=== PATIENT | male | born 1960 | race African-American/Black ===

== ENCOUNTER → 2017-07-13 08:04 | Outpatient (CLI) | payer MEDICAID ==
[2014-10-02 06:59] VITALS: BMI 26.5
[~2017-07-13 08:04] MED LIST: BAYER CHEWABLE81 MG PO; FERROUS SULFAT325 MG PO; IMDUR60 MG PO; LASIX80 MG PO; NIFEDIPINE ER60 MG PO; PROTONIX40 MG PO; ROCALTROL0.25 MCG PO; TOPROL XL100 MG PO; TUMS500 MG PO
== END | disposition home or self-care (01) ==
LOC: D.RT 08:00
DX: R06.02 Shortness of breath (principal)

== ENCOUNTER 2018-04-28 09:36 | Inpatient (IN) | payer MEDICAID ==
[~2018-04-28] VITALS: Ht 180.3 cm; Wt 83.2 kg
--- NOTE | ~2018-04-28 | HEMODYNAMI ---
PATIENT:PABLO CUNHA MEDICAL RECORD: [id number] : 58 LOCATION:[facility] D.2101 ADMISSION DATE: 04/28/18 Generatedon:04/29/201815:47 Patient name: PABLO CUNHA Patient #: [id number] SSN: : 1960 Date of study: 04/29/2018 Page: Of Hemodynamic Procedure Report Patient Data Patient Demographics Procedure consent was obtained First Name: PABLO Gender: Male Last Name: GUERLINE : 1960 Patient #: [id number] Age: 58 year(s) Race: Black Additional ID: [id number] Contact details [address]: [address] [place] [address] State: [place] City: [place] Zip code: [address] Past Medical History Allergies: No known allergies Admission Admission Data Admission Date: 04/28/2018 Admission Time: 17:34 Room #: .2101 Procedure Procedure Types Cath Procedure Peripheral Cath Diagnostic Procedure Miscellaneous Procedure Description Procedure Date Procedure Date: 04/29/2018 Procedure Start Time: 15:38 Procedure Staff Name Function Varun Geller MD Performing Physician Ac Mcdonald RT Monitor Sophie Bone RN Nurse Renate Souza Scrub Procedure Data Cath Procedure Fluoroscopy Diagnostic fluoroscopy Total fluoroscopy Time: 0.4 time: 0.4 min min Diagnostic fluoroscopy Total fluoroscopy dose: 1 dose: 1 mGy mGy Hemodynamics Rest Pre Cath Intra NCS Post Cath Procedure Log Time Note 15:31:13 Ac Mcdonald RT (R) (CV) sent for patient. Start room use. 15:31:23 Time tracking: Regular hours (M-F 7:00 - 5:00) 15:31:29 Patient received from Med II to IR Alert and oriented. Tansferred to table in Supine position. 15:31:31 Correct patient and procedure confirmed by team. 15:31:33 Signed procedure consent form obtained from patient. 15:31:37 Full Disclosure recording started 15:31:38 - 15:31:40 Pre-procedure instructions explained to patient. 15:31:40 Pre-op teaching completed and patient verbalized understanding. 15:31:43 Patient NPO since Breakfast. 15:31:59 Patient allergic to No known allergies 15:32:09 Is patient on blood thinner?No 15:32:32 Left foot was prepped with chlora-prep and draped in sterile fashion. 15:37:34 Physician arrived 15:37:34 --------ALL STOP TIME OUT------ 15:37:35 Final Timeout: patient, procedure, and site verified with staff and physician. All members of the team are in agreement. 15:37:39 Left foot site verified by team. 15:37:54 Sedation plan: Local Anesthetic Medication:Lidocaine 15:38:04 Procedure started. 15:38:12 Local anesthetic to left foot with Lidocaine 1% by Varun Geller MD.INITIAL ACCESS ONLY 15:38:36 CHIBA 18 X 15 needle opened to sterile field. 15:38:37 SAFE-T BX TRAY opened to sterile field. 15:44:43 Procedure ended.(Physican Out) 15:44:51 Fluoroscopy time 00.40 minutes. 15:45:00 Fluoroscopy dose: 1 mGy 15:45:00 Flurop Dose total: 1 15:45:04 Sharps counted by scrub and verified by R.N. 15:45:36 TEGADERM AND 4X4 APPLIED TO LEFT FOOT FOOT STABLE 15:45:41 Report given to Med II. 15:45:44 Patient transfered to Med II with Bed. Device Usage Item Manufacture Quantity Catalog Hospital Part Current Minimal Lot# / Name Number Charge Number Stock Stock Serial# Code CHIBA Zachary Prell 1 [id number] 18 X 15 needle SAFE-T Zachary Prell 1 [id number] 5 BX TRAY Signature Audit [place] Stage Time Signature Unsigned Intra-Procedure 04/29/2018 Ac 3:46:58 PM Tamara RT (R) (CV) Signatures Monitor : Ac Signature : Radhaield RT Date : Time : [facility] [address] [facility] [place] [address]
[2018-04-28] MEDS ORDERED: PEPCID AC20 MG PO (09:45)
[2018-04-28 10:14] LABS: BASOPHILS 0.4 % (0-2); EOSINOPHILS 5.8 % (0-7); HEMATOCRIT 28.3 % (42.0-54.0); HEMOGLOBIN 8.9 g/dL (13.5-17.5); IMMATURE GRANULOCYTES 0.4 % (0-5); LYMPHOCYTES 22.5 % (15-50); MCH 28.3 pg (26.0-34.0); MCHC 31.4 g/dL (31.0-37.0); MCV 90.1 fL (80.0-100.0); MEAN PLATELET VOLUME 8.8 fL (7.4-10.4); MONOCYTES 9.5 % (2-11); NEUTROPHILS 61.4 % (40-80); RBC 3.14 10x6/uL (4.20-6.10); RDW 13.7 % (11.5-14.5); WBC 4.6 10x3/uL (4.8-10.8)
[2018-04-28 10:25] LABS: PLATELET COUNT 73 10x3/uL (130-400)
[2018-04-28 10:29] LABS: ALBUMIN 2.9 g/dL (3.4-5.0); ANION GAP 15.6 mmol/L (8-16); BILIRUBIN - TOTAL 0.28 mg/dL (0.2-1.3); CALCIUM 8.3 mg/dL (8.5-10.1); CARBON DIOXIDE 28.1 mmol/L (21.0-32.0); CREATININE - SERUM 7.5 mg/dL (0.6-1.3); POTASSIUM - SERUM 4.7 mmol/L (3.5-5.1); PROTEIN - SERUM 7.2 g/dL (6.4-8.2)
[2018-04-28 11:00] LABS: PLATELET ESTIMATE DECREASED
--- NOTE | 2018-04-28 13:10 | NUR ---
PT OBSERVED SITTING IN SEMI-DONALDSON'S WITH NO SIGNS OF DISTRESS. WAKES EASILY TO VERBAL STIMULI, ORIENTED X4. DENIES ANY NEEDS AT THIS TIME. CALL LIGHT IN REACH, WILL CONTINUE TO MONITOR.
--- NOTE | 2018-04-28 13:18 | NUR ---
PT LEAVING THE ED VIA WHEELCHAIR AT THIS TIME FOR ORDERED MRI.
--- NOTE | 2018-04-28 14:00 | NUR ---
PT RETURNED TO THE ED VIA WHEELCHAIR FROM MRI.
[2018-04-28 15:06] VITALS: BP 210/93
[2018-04-28 16:00] VITALS: BP 205/86
[2018-04-28 17:00] VITALS: BP 197/83
[2018-04-28 17:31] VITALS: BP 171/74
--- NOTE | 2018-04-28 17:32 | NUR ---
WILL ADMINISTER ORDERED ZOSYN ONCE ORDERED VANCOMYCIN INFUSION IS COMPLETE.
--- NOTE | 2018-04-28 18:19 | NUR ---
THIS NURSE SPOKE WITH SERGIO IN DIETARY TO REQUEST DINNER TRAY BE SENT TO ROOM 2101 PRIOR TO PT LEAVING THE ED.
[2018-04-28 18:36] VITALS: BP 146/64; BMI 25.8
--- NOTE | 2018-04-28 19:04 | NUR ---
PT TRANFERED FROM THE ER ON A WHEELCHAIR. RECIEVED REPORT FROM MARIA C AT 1800. PT ON ROOM AIR, VSS, AAOX4. BOTH LEGS APPEARS SWOLLEN +3 EDEMA. PT IS A GOOD HISTORIAN. IV ON RIGHT HAND, 22G. SALINE LOCK. UP ADLIB. CAME IN WITH VANC INFUSING. WITH 75MLS LEFT IN BAG. ADMISSION ASSESSMENT COMPLETE. WILL CONTINUE POC. CL IN REACH, BED IN LOW. WILL CONTINUE TO MONITOR
--- NOTE | 2018-04-28 19:20 | NUR ---
INITIAL ROUNDS COMPLETED - PT DENIES ANY PAIN OR DISCOMFORT. R IV IN HAND IS PATENT, CURRENTLY INFUSING VANC. DENIES ANY PAIN OR DISCOMFORT AT THE IV SITE. A/O X4. NO FURTHER NEEDS NOTED AT THIS TIME. WILL CONTINUE TO OBSERVE AND FOLLOW POC. CL IN RECH, SR UP X2, BED IN LOW POSITION.
[2018-04-28 20:00] VITALS: BP 155/58
[2018-04-29] VITALS: BP 169/73
--- NOTE | 2018-04-29 03:57 | NUR ---
PT RESTING IN BED COMFORTABLY. AROUSES EASILY TO NOISE. RR EVEN AND UL, NO S/S OF DISTRESS. NO NEEDS NOTED AT THIS TIME. IV SL'D AND PT ON ROOM AIR. VSS. WILL CONTINUE TO MONITOR NEEDS. CL IN REACH, SR UP X2, BED IN LOWEST POSITION.
[2018-04-29 04:00] VITALS: BP 180/68
--- NOTE | 2018-04-29 07:41 | NUR ---
REPORT RECEIVED. WILL CONTINUE WITH POC. PT CURRENTLY LYING SEMI FOWLERS. CALL LIGHT W/I REACH. RR EVEN AND UNLABORED ON RA. R.HAND PIV IS SALINE LOCKED. PT DENIES ANY NEEDS AT THIS TIME. WILL CTM.
[2018-04-29 09:21] VITALS: BP 183/75
[2018-04-29 10:53] VITALS: BMI 25.9
--- NOTE | 2018-04-29 10:55 | NUR ---
FAMILY AT BS. CALL LIGHT IN REACH. WILL CONT. PLAN OF CARE.
--- NOTE | 2018-04-29 12:17 | NUR ---
AM MEDICATIONS ADMINISTERED. PT SYSTOLIC BP WAS 180, FABIÁN COLBERT ADMINISTERED HYDRALIZINE IV. RECHECKED BP AN HOUR LATER AND SYSTOLIC BP WAS 152. PT DENIES ANY FURTHER NEEDS. WILL CTM.
--- NOTE | 2018-04-29 12:40 | NUR ---
PT TAKEN TO DIALYSIS.
[2018-04-29 12:52] VITALS: BP 181/79
--- NOTE | 2018-04-29 15:54 | MORECARE ---
CASE MANAGEMENT DISCHARGE SUMMARY PATIENT: PABLO CUNHA UNIT: [id number] ADM DATE: 04/28/18 AGE: 58 : 58 SEX: M ROOM/BED: D.2101 AUTHOR: JIMMIE NINO PHYSICIAN: REFERRING PHYSICIAN: SABRA COLLINS MD DATE OF SERVICE: 04/29/18 Discharge Plan Patient Name: PABLO CUNHA Facility: [facility]:[place] : 1960 Planned Disposition: Anticipated Discharge Date: Discharge Date: Expected LOS: Initial Reviewer: [email or web address] Initial Review Date: 04/29/2018 Generated: 04/29/18 4:54 pm Comments DCP- Discharge Planning Updated by [email or web address]: Wellington Kim on 04/29/18 2:[address] Patient Name: PABLO CUNHA Admission Status: ER Accout number: [id number] Admission Date: 04-28-2018 : 1960 Admission Diagnosis:TYPE 2 DIABETES MELLITUS WITH OTHER SPECIFIED COMPLICAT Attending: SABRA COLLINS Current LOS: 1 Anticipated DC Date: Planned Disposition: Primary Insurance: MEDICAID [place] Discharge Planning Comments: CM RECEIVED ORDER FOR HOME HEALTH CARE / MANAGER INTEGRITY TREATMENT. CM ATTEMPTED TO MEET WITH PT FOR INITIAL ASSESSMENT OF DISCHARGE NEEDS. PT WAS NOT IN ROOM AT APPROXIMATELY 1515 AND 1550 HOURS. CM TO ATTEMPT ASSESSMENT OF PT AT A LATER TIME. Vehicle Assembly Inspector: Wellington Kim Patient Name: PABLO CUNHA Page [id number] at 1554 All edits/amendments must be made on the electronic document DICTATION DATE: 04/29/18 1553 INTERSTATE BUS DISPATCHER: SUELLEN 04/29/18 1553 RPT#: [id number] DC DATE: STATUS: ADM IN [facility] [address] [place] [address] END OF REPORT
[2018-04-29 16:14] LABS: ERYTHROCYTE SEDIMENTATION RATE 50 mm/hr (0-20)
--- NOTE | 2018-04-29 18:15 | NUR ---
PT LYING SEMI FOWLERS. CALL LIGHT W/I REACH. L.FOOT ASPIRATION SITE IS C/D/I WITH MINIMAL BLEEDING ON GAUZE. DRESSING IS INTACT. PT DENIES ANY NEEDS OR PAIN AT THIS TIME. WILL PASS REPORT AND CONTINUE WITH POC.
--- NOTE | 2018-04-29 19:39 | NUR ---
REPORT RECEIVED. PT STANDING UP IN ROOM WITH EYES OPEN, RR EVEN AND UNLABORED. PT STATES HE WAS TOLD HE WAS NOT BEING GIVEN ANTIBIOTICS UNTIL WEDNESDAY THEREFORE HE MANUALLY REMOVED HIS IV. PT DENIES FURTHER NEEDS. NO S/S OF DISTRESS. CALL LIGHT IN REACH. WILL CTM.
[2018-04-29 20:00] VITALS: BP 157/74
--- NOTE | 2018-04-29 23:49 | NUR ---
UNABLE TO ADMINISTERED ORDERED HYDRALAZINE IV FOR PT BLOOD PRESSURE OF 157/74. PT HAS REMOVED HIS IV AND REFUSES TO HAVE NEW IV PLACED. PT STATES HE WILL ONLY HAVE A NEW IV IF HE HAS TO TAKE ANITBIOTICS. WILL NOTIFY CHARGE NURSE.
[2018-04-30] VITALS: BP 151/65
--- NOTE | 2018-04-30 01:03 | NUR ---
PT LYING ON RIGHT SIDE IN BED WITH EYES OPEN, RR EVEN AND UNLABORED. BED IN LOW POSITION. NO S/S OF DISTRESS. RR EVEN AND UNLABORED. DENIES FURTHER NEEDS. CALL LIGHT IN REACH. WILL CTM.
--- NOTE | 2018-04-30 03:20 | NUR ---
PT LYING ON RIGHT SIDE IN BED WITH EYES CLOSED, RR EVEN AND UNLABORED. BED IN LOW POSITION. NO S/S OF DISTRESS. CALL LIGHT IN REACH. WILL CTM.
[2018-04-30 04:00] VITALS: BP 139/64
--- NOTE | 2018-04-30 04:08 | NUR ---
RN NOTE: PATIENT RESTING COMFORTABLY IN BED. RESPIRATION ARE EVEN AND UNLABORED. NO S/S OF DISTRESS. CALL LIGHT WITHIN REACH. WILL CPOC.
[2018-04-30 06:29] LABS: CALCIUM 8.4 mg/dL (8.5-10.1); CARBON DIOXIDE 27.9 mmol/L (21.0-32.0); CREATININE - SERUM 8.5 mg/dL (0.6-1.3); PHOSPHOROUS 5.9 mg/dL (2.5-4.9)
[2018-04-30 06:32] LABS: EOSINOPHILS 5.1 % (0-7); HEMATOCRIT 27.3 % (42.0-54.0); HEMOGLOBIN 8.7 g/dL (13.5-17.5); IMMATURE GRANULOCYTES 0.4 % (0-5); LYMPHOCYTES 23.3 % (15-50); MCH 28.2 pg (26.0-34.0); MCHC 31.9 g/dL (31.0-37.0); MCV 88.3 fL (80.0-100.0); MEAN PLATELET VOLUME 9.9 fL (7.4-10.4); MONOCYTES 9.7 % (2-11); NEUTROPHILS 60.5 % (40-80); PLATELET COUNT 86 10x3/uL (130-400); RBC 3.09 10x6/uL (4.20-6.10); RDW 13.6 % (11.5-14.5); WBC 4.9 10x3/uL (4.8-10.8)
[2018-04-30 06:38] LABS: POTASSIUM - SERUM 3.9 mmol/L (3.5-5.1)
--- NOTE | 2018-04-30 07:15 | NUR ---
PT LAYING IN BED, STATES NO CONCERNS. CL IN REACH.
--- NOTE | 2018-04-30 10:26 | NUR ---
RESTS IN BED WITH EYES CLOSED. CALL LIGHT IN REACH. WILL CONT. PLAN OF CARE.
[2018-04-30 10:34] VITALS: BP 161/69
--- NOTE | 2018-04-30 15:50 | NUR ---
PT ESCORTED OUT VIA WHEELCHAIR TO POV. DRIVING
--- NOTE | 2018-04-30 18:16 | MORECARE ---
CASE MANAGEMENT DISCHARGE SUMMARY PATIENT: PABLO CUNHA UNIT: [id number] ADM DATE: 04/28/18 AGE: 58 : 58 SEX: M ROOM/BED: D.2101 AUTHOR: JIMMIE NINO PHYSICIAN: REFERRING PHYSICIAN: SABRA COLLINS MD DATE OF SERVICE: 04/30/18 Discharge Plan Patient Name: PABLO CUNHA [facility] [facility] 1960 Planned Disposition: Home Anticipated Discharge Date: 04/30/18 Discharge Date: 04/30/2018 Expected LOS: 2 Initial Reviewer: [email or web address] Initial Review Date: 04/29/2018 Generated: 04/30/18 7:16 pm Comments DCP- Discharge Planning Updated by [email or web address]: Wellington Kim on 04/29/18 2:[address] Patient Name: PABLO CUNHA Admission Status: ER Accout number: [id number] Admission Date: 04-28-2018 : 1960 Admission Diagnosis:TYPE 2 DIABETES MELLITUS WITH OTHER SPECIFIED COMPLICAT Attending: SABRA COLLINS Current LOS: 1 Anticipated DC Date: Planned Disposition: Primary Insurance: MEDICAID [place] Discharge Planning Comments: CM RECEIVED ORDER FOR HOME HEALTH CARE / HALFWAY TREATMENT. CM ATTEMPTED TO MEET WITH PT FOR INITIAL ASSESSMENT OF DISCHARGE NEEDS. PT WAS NOT IN ROOM AT APPROXIMATELY 1515 AND 1550 HOURS. CM TO ATTEMPT ASSESSMENT OF PT AT A LATER TIME. Automotive Porter: Wellington Kim Last DP export: 04/29/18 2:54 p Patient Name: PABLO CUNHA Page 16011 at 1816 All edits/amendments must be made on the electronic document DICTATION DATE: 04/30/181814 MEDICAL SECRETARY: SUELLEN 04/30/181814 RPT#: [id number] DC DATE:04/30/18 STATUS: DIS IN [facility] [address] [place] [address] END OF REPORT
--- NOTE | 2018-04-30 18:28 | MORECARE ---
CASE MANAGEMENT DISCHARGE SUMMARY PATIENT: PABLO CUNHA UNIT: [id number] ADM DATE: 04/28/18 AGE: 58 : 58 SEX: M ROOM/BED: D.2101 AUTHOR: MICADOC PHYSICIAN: REFERRING PHYSICIAN: SABRA COLLINS MD DATE OF SERVICE: 04/30/18 Discharge Plan Patient Name: PABLO CUNHA Facility: [facility]:[place] : 1960 Planned Disposition: Home Anticipated Discharge Date: 04/30/18 Discharge Date: 04/30/2018 Expected LOS: 2 Initial Reviewer: [email or web address] Initial Review Date: 04/29/2018 Generated: 04/30/18 7:28 pm Comments DCP- Discharge Planning Updated by [email or web address]: Wellington Kim on 04/29/18 2:[address] Patient Name: PABLO CUNHA Admission Status: ER Accout number: [id number] Admission Date: 04-28-2018 : 1960 Admission Diagnosis:TYPE 2 DIABETES MELLITUS WITH OTHER SPECIFIED COMPLICAT Attending: SABRA COLLINS Current LOS: 1 Anticipated DC Date: Planned Disposition: Primary Insurance: MEDICAID [place] Discharge Planning Comments: CM RECEIVED ORDER FOR HOME HEALTH CARE / PENITENTIARY TREATMENT. CM ATTEMPTED TO MEET WITH PT FOR INITIAL ASSESSMENT OF DISCHARGE NEEDS. PT WAS NOT IN ROOM AT APPROXIMATELY 1515 AND 1550 HOURS. CM TO ATTEMPT ASSESSMENT OF PT AT A LATER TIME. Carpenter Prototype: Wellington Kim DCPIA - Discharge Planning Initial Assessment Updated by [email or web address]: Johanna Flores on 04/30/18 6:22 pm * PCP DR COLLINS * Pharmacy [facility] IN [place] * Preadmission Environment Home Alone * ADLs Independent * List name and contact numbers for known caregivers / representatives who currently or will assist patient after discharge: KATYHA CUNHA- - [phone] SAMAN GLEN- [phone] * Verbal permission to speak to the caregivers and representatives has been obtained from the patient. No * Community resources currently utilized None * Please name any agencies selected above. N/A * Additional services required to return to the preadmission environment? No * Can the patient safely return to the preadmission environment? Yes * Has this patient been hospitalized within the prior 30 days at any hospital? No Last DP export: 04/30/18 5:16 p Patient Name: PABLO CUNHA Page [id number] at 1828 All edits/amendments must be made on the electronic document DICTATION DATE: 04/30/181827 FURNITURE BUILDER: SUELLEN 04/30/181827 RPT#: [id number] DC DATE:04/30/18 STATUS: DIS IN [facility] [address] [place] [address] END OF REPORT
--- NOTE | 2018-04-30 18:35 | MORECARE ---
CASE MANAGEMENT DISCHARGE SUMMARY PATIENT: PABLO CUNHA UNIT: [id number] ADM DATE: 04/28/18 AGE: 58 : 58 SEX: M ROOM/BED: D.2101 AUTHOR: MICA,DOC PHYSICIAN: REFERRING PHYSICIAN: SABRA COLLINS MD DATE OF SERVICE: 04/30/18 Discharge Plan Patient Name: PABLO CUNHA Facility: [facility]:[place] : 1960 Planned Disposition: Home Anticipated Discharge Date: 04/30/18 Discharge Date: 04/30/2018 Expected LOS: 2 Initial Reviewer: [email or web address] Initial Review Date: 04/29/2018 Generated: 04/30/18 7:35 pm Comments DCP- Discharge Planning Updated by [email or web address]: Johanna Flores on 04/30/18 5:[address] LATE ENTRY 1100 CM MET WITH THE PATIENT AT THE BEDSIDE. HE DOES NOT HAVE ANY HOME HEALTH SERVICES. HAS HD M/ W / F. HE EITHER TAKES THE SCAT VAN OR DRIVES HIMSELF TO DIALYSIS. PATIENT DOES NOT KNOW ANYTHING ABOUT H/H AND NURSING HOME TREATMENT PLAN. ORDER WAS FROM THE ER. CM SPOKE WITH SERAFIN THE RENAL PROFESSOR OF VOICE. SHE DOES NOT THINK THE PATIENT NEEDS H/H OR NURSING HOME AT THIS TIME. SHE STATES HE IS FAIRLY INDEPENDENT. THE PLAN IS FOR THE PATIENT TO HAVE HD ON WEDNESDAY. HE WILL PROCEED TO GET A BONE BIOPSY SO THAT DEFINITIVE DX CAN BE OBTAINED. HE WILL THEN PROCEED TO F/U WITH DR SANFORD. ONCE THE DIAGNOSIS IS OBTAINED THEN A TREATMENT PLANWILL BE SET UP. ??? IVAB. POSSIBLE CASTING OF THE FOOT WITH NON WEIGHT BEARING STATUS. NO NEED IDENTIFIED AT THIAS TIME. PATIENT' SISTER WILL PROVIDE TRANSPORTATION TO HOME. DR SANFORD SPOKE WITH THE PATIENT AT THE BEDSIDE AND REVIEWED HIS FILMS. EXPLAINED AFTER BX RESULTS OBTAINED AND DIAGNOSIS DETERMINED, HE WILL DISCUSS TREATMENT. DCP- Discharge Planning Updated by [email or web address]: Wellington Kim on 04/29/18 2:[address] Patient Name: PABLO CUNHA Admission Status: ER Accout number: [id number] Admission Date: 04-28-2018 : 1960 Admission Diagnosis:TYPE 2 DIABETES MELLITUS WITH OTHER SPECIFIED COMPLICAT Attending: SABRA COLLINS Current LOS: 1 Anticipated DC Date: Planned Disposition: Primary Insurance: MEDICAID [place] Discharge Planning Comments: CM RECEIVED ORDER FOR HOME HEALTH CARE / NUMERICAL CONTROL DRILL PRESS OPERATOR TREATMENT. CM ATTEMPTED TO MEET WITH PT FOR INITIAL ASSESSMENT OF DISCHARGE NEEDS. PT WAS NOT IN ROOM AT APPROXIMATELY 1515 AND 1550 HOURS. CM TO ATTEMPT ASSESSMENT OF PT AT A LATER TIME. Scalp Treatment Operator: Wellington Kim DCPIA - Discharge Planning Initial Assessment Updated by [email or web address]: Johanna Flores on 04/30/18 6:22 pm * PCP DR COLLINS * Pharmacy [facility] IN [place] * Preadmission Environment Home Alone * ADLs Independent * List name and contact numbers for known caregivers / representatives who currently or will assist patient after discharge: KATHYA CUNHAVu - [phone] SAMANVIKA CARROLL- [phone] * Verbal permission to speak to the caregivers and representatives has been obtained from the patient. No * Community resources currently utilized None * Please name any agencies selected above. N/A * Additional services required to return to the preadmission environment? No * Can the patient safely return to the preadmission environment? Yes * Has this patient been hospitalized within the prior 30 days at any hospital? No Last DP export: 04/30/18 5:28 p Patient Name: PABLO CUNHA Page 50409 at 1835 All edits/amendments must be made on the electronic document DICTATION DATE: 04/30/181833 ACCOUNTING PROFESSOR: SUELLEN 04/30/181833 RPT#: [id number] DC DATE:04/30/18 STATUS: DIS IN [facility] [address] [place] [address] END OF REPORT
--- NOTE | 2018-05-02 07:50 | MORECARE ---
CASE MANAGEMENT DISCHARGE SUMMARY PATIENT: PABLO CUNHA UNIT: [id number] ADM DATE: 04/28/18 AGE: 58 : 58 SEX: M ROOM/BED: D.2101 AUTHOR: MICA,DOC PHYSICIAN: REFERRING PHYSICIAN: SABRA COLLINS MD DATE OF SERVICE: 05/02/18 Discharge Plan Patient Name: PABLO CUNHA Facility: [facility]:[place] : 1960 Planned Disposition: Home Anticipated Discharge Date: 04/30/18 Discharge Date: 04/30/2018 Expected LOS: 2 Initial Reviewer: [email or web address] Initial Review Date: 04/29/2018 Generated: 05/02/18 8:50 am Comments DCP- Discharge Planning Updated by [email or web address]: Johanna Flores on 04/30/18 5:[address] LATE ENTRY 1100 CM MET WITH THE PATIENT AT THE BEDSIDE. HE DOES NOT HAVE ANY HOME HEALTH SERVICES. HAS HD M/ W / F. HE EITHER TAKES THE SCAT VAN OR DRIVES HIMSELF TO DIALYSIS. PATIENT DOES NOT KNOW ANYTHING ABOUT H/H AND USP TREATMENT PLAN. ORDER WAS FROM THE ER. CM SPOKE WITH SERAFIN THE RENAL METER AND SERVICE LINE INSPECTOR. SHE DOES NOT THINK THE PATIENT NEEDS H/H OR USP AT THIS TIME. SHE STATES HE IS FAIRLY INDEPENDENT. THE PLAN IS FOR THE PATIENT TO HAVE HD ON WEDNESDAY. HE WILL PROCEED TO GET A BONE BIOPSY SO THAT DEFINITIVE DX CAN BE OBTAINED. HE WILL THEN PROCEED TO F/U WITH DR SANFORD. ONCE THE DIAGNOSIS IS OBTAINED THEN A TREATMENT PLANWILL BE SET UP. ??? IVAB. POSSIBLE CASTING OF THE FOOT WITH NON WEIGHT BEARING STATUS. NO NEED IDENTIFIED AT THIAS TIME. PATIENT' SISTER WILL PROVIDE TRANSPORTATION TO HOME. DR SANFORD SPOKE WITH THE PATIENT AT THE BEDSIDE AND REVIEWED HIS FILMS. EXPLAINED AFTER BX RESULTS OBTAINED AND DIAGNOSIS DETERMINED, HE WILL DISCUSS TREATMENT. DCP- Discharge Planning Updated by [email or web address]: Wellington Kim on 04/29/18 2:[address] Patient Name: PABLO CUNHA Admission Status: ER Accout number: [id number] Admission Date: 04-28-2018 : 1960 Admission Diagnosis:TYPE 2 DIABETES MELLITUS WITH OTHER SPECIFIED COMPLICAT Attending: SABRA COLLINS Current LOS: 1 Anticipated DC Date: Planned Disposition: Primary Insurance: MEDICAID [place] Discharge Planning Comments: CM RECEIVED ORDER FOR HOME HEALTH CARE / FIELD ARTILLERY OFFICER TREATMENT. CM ATTEMPTED TO MEET WITH PT FOR INITIAL ASSESSMENT OF DISCHARGE NEEDS. PT WAS NOT IN ROOM AT APPROXIMATELY 1515 AND 1550 HOURS. CM TO ATTEMPT ASSESSMENT OF PT AT A LATER TIME. Software Qa System Specialist: Wellington Kim DCPIA - Discharge Planning Initial Assessment Updated by [email or web address]: Johanna Flores on 04/30/18 6:22 pm * PCP DR COLLINS * Pharmacy [facility] IN [place] * Preadmission Environment Home Alone * ADLs Independent * List name and contact numbers for known caregivers / representatives who currently or will assist patient after discharge: KATHYA CUNHAVu - [phone] SAMANVIKA CARROLL- [phone] * Verbal permission to speak to the caregivers and representatives has been obtained from the patient. No * Community resources currently utilized None * Please name any agencies selected above. N/A * Additional services required to return to the preadmission environment? No * Can the patient safely return to the preadmission environment? Yes * Has this patient been hospitalized within the prior 30 days at any hospital? No Last DP export: 04/30/18 5:35 p Patient Name: PABLO CUNHA Page 10202 at 0750 All edits/amendments must be made on the electronic document DICTATION DATE: 05/02/18749 PHYSICIAN INTERNIST: SUELLEN 05/02/18 0750 RPT#: [id number] DC DATE:04/30/18 STATUS: DIS IN [facility] [address] [place] [address] END OF REPORT
[2018-05-06 18:59] VITALS: Ht 180.3 cm; Wt 83.2 kg
== END 2018-04-30 15:50 | disposition home or self-care (01) | DRG 638 ==
LOC: D.ER 09:36 → D.M2 17:34 → D.EDHOLD 17:34 → D.M2 17:43
PROVIDERS: Emergency Medicine; Internal Medicine Nephrology; Orthopaedic Surgery; Specialist; ADMIT Legal Medicine
PROC: 0S9 Lower Joints, Drainage (ICD-10-PCS; principal; 2018-04-29 15:30)
DX: E11.69 Type 2 diabetes mellitus with other specified complication (principal); M86.9 Osteomyelitis, unspecified; C85.90 Non-Hodgkin lymphoma, unspecified, unspecified site; I12.0 Hypertensive chronic kidney disease with stage 5 chronic kidney disease or end stage renal disease; E11.22 Type 2 diabetes mellitus with diabetic chronic kidney disease; N18.6 End stage renal disease; Z99.2 Dependence on renal dialysis; E11.610 Type 2 diabetes mellitus with diabetic neuropathic arthropathy; D63.1 Anemia in chronic kidney disease; E83.39 Other disorders of phosphorus metabolism

== ENCOUNTER → 2018-09-30 15:34 | Outpatient (CLI) | payer MEDICAID ==
[2018-05-06 18:59] VITALS: BMI 25.9
[~2018-09-30 15:34] MED LIST changes: +PEPCID AC20 MG PO
== END | disposition home or self-care (01) ==
LOC: D.US 15:34
PROVIDERS: ATTEND Podiatrist Foot & Ankle Surgery
DX: I82.401 Acute embolism and thrombosis of unspecified deep veins of right lower extremity (principal)

== ENCOUNTER 2019-03-06 11:29 | Emergency (ER) | payer MEDICAID ==
[~2019-03-06] VITALS: Ht 180.3 cm; Wt 84.1 kg
[2019-03-06 11:34] VITALS: Ht 180.3 cm; Wt 84.1 kg
[2019-03-06 12:02] LABS: BASOPHILS 0.5 % (0-2); EOSINOPHILS 2.1 % (0-7); HEMATOCRIT 32.3 % (42.0-54.0); IMMATURE GRANULOCYTES 0.4 % (0-5); LYMPHOCYTES 15.9 % (15-50); MCH 28.3 pg (26.0-34.0); MCV 91.5 fL (80.0-100.0); MEAN PLATELET VOLUME 9.1 fL (7.4-10.4); MONOCYTES 9.9 % (2-11); NEUTROPHILS 71.2 % (40-80); RBC 3.53 10x6/uL (4.20-6.10); RDW 15.3 % (11.5-14.5); WBC 5.7 10x3/uL (4.8-10.8)
[2019-03-06 12:03] LABS: PLATELET COUNT 119 10x3/uL (130-400)
[2019-03-06 12:12] LABS: ANION GAP 15.3 mmol/L (8-16); CALCIUM 8.3 mg/dL (8.5-10.1); CARBON DIOXIDE 26.7 mmol/L (21.0-32.0); CREATININE - SERUM 6.3 mg/dL (0.6-1.3)
[2019-03-06 12:18] LABS: BILIRUBIN - TOTAL 0.48 mg/dL (0.2-1.3); PROTEIN - SERUM 8.1 g/dL (6.4-8.2)
[2019-03-06] MEDS ORDERED: ZOFRAN8 MG PO (16:34)
[2019-03-06 19:05] VITALS: BP 195/91
== END 2019-03-06 19:06 | disposition home or self-care (01) ==
LOC: D.ER 11:29
PROVIDERS: Family Medicine
DX: R10.32 Left lower quadrant pain (principal); R59.1 Generalized enlarged lymph nodes; E11.22 Type 2 diabetes mellitus with diabetic chronic kidney disease; I12.0 Hypertensive chronic kidney disease with stage 5 chronic kidney disease or end stage renal disease; N18.6 End stage renal disease; Z99.2 Dependence on renal dialysis; C85.90 Non-Hodgkin lymphoma, unspecified, unspecified site

== ENCOUNTER 2019-04-10 05:11 | Emergency (ER) | payer MEDICAID ==
[~2019-04-10] VITALS: Ht 180.3 cm; Wt 83.9 kg
[~2019-04-10 05:11] MED LIST changes: +ZOFRAN8 MG PO
[2019-04-10 05:16] VITALS: Ht 180.3 cm; Wt 83.9 kg
[2019-04-10 06:12] LABS: BASOPHILS 0.4 % (0-2); EOSINOPHILS 6.2 % (0-7); HEMATOCRIT 30.4 % (42.0-54.0); HEMOGLOBIN 9.7 g/dL (13.5-17.5); IMMATURE GRANULOCYTES 0.3 % (0-5); LYMPHOCYTES 17.2 % (15-50); MCHC 31.9 g/dL (31.0-37.0); MCV 87.6 fL (80.0-100.0); MEAN PLATELET VOLUME 9.2 fL (7.4-10.4); MONOCYTES 9.4 % (2-11); NEUTROPHILS 66.5 % (40-80); PLATELET COUNT 105 10x3/uL (130-400); RBC 3.47 10x6/uL (4.20-6.10); RDW 14.6 % (11.5-14.5); WBC 7.6 10x3/uL (4.8-10.8)
[2019-04-10 06:16] LABS: ANION GAP 19.1 mmol/L (8-16); CALCIUM 8.2 mg/dL (8.5-10.1); CARBON DIOXIDE 24.7 mmol/L (21.0-32.0); CREATININE - SERUM 11.5 mg/dL (0.6-1.3); POTASSIUM - SERUM 4.8 mmol/L (3.5-5.1)
[2019-04-10 06:22] LABS: ALBUMIN 2.8 g/dL (3.4-5.0); BILIRUBIN - TOTAL 0.29 mg/dL (0.2-1.3); PROTEIN - SERUM 7.3 g/dL (6.4-8.2)
[2019-04-10] MEDS ORDERED: PERCOCET 5-3251 TAB PO (09:08)
[2019-04-10] MEDS ORDERED: PROTONIX40 MG PO (09:08)
[2019-04-10 09:26] VITALS: BP 131/56
== END 2019-04-10 09:20 | disposition home or self-care (01) ==
LOC: D.ER 05:11
PROVIDERS: Family Medicine
DX: I12.0 Hypertensive chronic kidney disease with stage 5 chronic kidney disease or end stage renal disease (principal); N18.6 End stage renal disease; Z99.2 Dependence on renal dialysis; C85.83 Other specified types of non-Hodgkin lymphoma, intra-abdominal lymph nodes

== ENCOUNTER 2019-05-18 15:55 | Inpatient (IN) | payer MEDICAID ==
[~2019-05-18] VITALS: Ht 180.3 cm; Wt 64.6 kg
[~2019-05-18 15:55] MED LIST changes: +PERCOCET 5-3251 TAB PO
[2019-05-18 17:08] LABS: HEMOGLOBIN 8.4 g/dL (13.5-17.5); MCH 27.3 pg (26.0-34.0); MCHC 31.1 g/dL (31.0-37.0); MCV 87.7 fL (80.0-100.0); MEAN PLATELET VOLUME 10.2 fL (7.4-10.4); PLATELET COUNT 131 10x3/uL (130-400); RBC 3.08 10x6/uL (4.20-6.10); RDW 15.9 % (11.5-14.5); WBC 21.9 10x3/uL (4.8-10.8)
[2019-05-18 17:27] LABS: EOSINOPHILS 1 % (0-7); LYMPHOCYTES 7 % (15-50); MONOCYTES 7 % (2-11); NEUTROPHILS 85 % (40-80)
[2019-05-18 17:28] LABS: PLATELET ESTIMATE NORMAL; TARGET CELLS OCC
[2019-05-18 17:29] LABS: POIKILOCYTOSIS OCC
[2019-05-18 17:36] LABS: CALC OSMOLALITY 271 mosm/kg (275-300); CALCIUM 8.1 mg/dL (8.5-10.1); CARBON DIOXIDE 20.4 mmol/L (21.0-32.0); CHLORIDE - SERUM 88 mmol/L (98-107); GLUCOSE 95 mg/dL (74-106); POTASSIUM - SERUM 5.8 mmol/L (3.5-5.1); SODIUM 128 mmol/L (136-145); UREA NITROGEN 55 mg/dL (7-18); eGFR NON AFRICAN AMERICAN 7 mL/min (90-120)
[2019-05-18 17:43] LABS: APTT 37.9 SECONDS (22.8-39.4); INR 1.57 (0.85-1.17); PROTIME 18.6 SECONDS (11.6-15.0)
[2019-05-18 17:53] LABS: ALBUMIN 1.9 g/dL (3.4-5.0); ALKALINE PHOSPHATASE 215 U/L (30-120); ALT (SGPT) 20 U/L (10-68); BILIRUBIN - TOTAL 0.77 mg/dL (0.2-1.3); CKMB 0.4 U/L (0.0-3.6); CREATINE KINASE 69 UL (21-232); PROTEIN - SERUM 6.8 g/dL (6.4-8.2)
[2019-05-18 17:59] VITALS: BP 121/54
[2019-05-18 18:03] LABS: TROPONIN-I 0.175 ng/mL (0.000-0.060)
--- NOTE | 2019-05-18 18:15 | MORECARE ---
CASE MANAGEMENT DISCHARGE SUMMARY PATIENT: PABLO CUNHA UNIT: [id number] ADM DATE: 05/18/19 AGE: 59 : 58 SEX: M ROOM/BED: D.2236 AUTHOR: JIMMIE NINO PHYSICIAN: REFERRING PHYSICIAN: SABRA COLLINS MD DATE OF SERVICE: 05/18/19 Discharge Plan Patient Name: PABLO CUNHA Facility: [facility]:[place] : 1960 Planned Disposition: Home Anticipated Discharge Date: 05/22/19 Discharge Date: Expected LOS: 4 Initial Reviewer: [email or web address] Initial Review Date: 05/18/2019 Generated: 05/18/19 7:14 pm Patient Name: PABLO CUNHA Page 47955 at 1815 All edits/amendments must be made on the electronic document DICTATION DATE: 05/18/191813 GEM SETTER: SUELLEN 05/18/191813 RPT#: [id number] DC DATE: STATUS: ADM IN [facility] [address] [place] [address] END OF REPORT
--- NOTE | 2019-05-18 18:23 | MORECARE ---
CASE MANAGEMENT DISCHARGE SUMMARY PATIENT: PABLO CUNHA UNIT: [id number] ADM DATE: 05/18/19 AGE: 59 : 58 SEX: M ROOM/BED: D.2236 AUTHOR: MICA,DOC PHYSICIAN: REFERRING PHYSICIAN: SABRA COLLINS MD DATE OF SERVICE: 05/18/19 Discharge Plan Patient Name: PABLO CUNHA Facility: [facility]:[place] : 1960 Planned Disposition: Home Anticipated Discharge Date: 05/22/19 Discharge Date: Expected LOS: 4 Initial Reviewer: [email or web address] Initial Review Date: 05/18/2019 Generated: 05/18/19 7:23 pm DCP- Discharge Planning Updated by [email or web address]: Telma Ramsey on 05/18/19 5:[address] DC PLAN: Return home alone. ANTICIPATED DC NEEDS: denied known dc needs at time of assessment in the ER. CM met with patient to complete initial dc planning assessment. CM educated patient on the CM role and verbal consent given by patient to complete assessment. CM verified patient's address, phone number, and emergency contact phone numbers. Patient lives at home alone and reports he is independent in his care. He goes to - via scat transport to and from. He reports he also goes to the wound clinic for his R ankle. He reports he is currently taking po vancomycin and IV Vanco at . At discharge patient plans to return home and feels this is a safe discharge. CM discussed availability of home health, rehab services, and medical equipment. Patient denied known discharge needs at this time. Transportation provider at discharge will be an ambulance. CM will continue to follow and will assist as needed with dc plans/needs. Telma Ramsey RN, [facility] DCPIA - Discharge Planning Initial Assessment Updated by [email or web address]: Telma Ramsey on 05/18/19 6:16 pm * Is the patient Alert and Oriented? Yes * PCP Dr. Collins * Pharmacy [facility] in [place] * Preadmission Environment Home Alone * ADLs Independent * Equipment Bedside Commode Cane Rolling Walker Wheelchair * List name and contact numbers for known caregivers / representatives who currently or will assist patient after discharge: Roselia Estes [facility] [phone] * Verbal permission to speak to the caregivers and representatives has been obtained from the patient. Yes * Community resources currently utilized None * Please name any agencies selected above. Hemodialysis at [facility] transportation * Additional services required to return to the preadmission environment? No * Can the patient safely return to the preadmission environment? Yes * Has this patient been hospitalized within the prior 30 days at any hospital? Yes Last DP export: 05/18/19 5:15 pm Patient Name: PABLO CUNHA Page [id number] at 1823 All edits/amendments must be made on the electronic document DICTATION DATE: 05/18/191822 ROOFING LAYER: SUELLEN 05/18/191822 RPT#: [id number] DC DATE: STATUS: ADM IN [facility] [address] [place] [address] END OF REPORT
--- NOTE | 2019-05-18 18:45 | NUR ---
DR HERNANDEZ AT BS
[2019-05-18 19:17] VITALS: BP 126/54
--- NOTE | 2019-05-18 19:17 | NUR ---
REPORT CALLED TO FILEMON BENNETT
--- NOTE | 2019-05-18 19:45 | NUR ---
PT'S IV ANTIBIOTIC ZOSYN FINISHED AT THIS TIME.
--- NOTE | 2019-05-18 19:47 | NUR ---
PT TRANSPORTED TO DIALYSIS, FILEMON BENNETT INFORMED.
[2019-05-19] VITALS (7 sets, daily range): BP systolic 98–138; BP diastolic 30–65; BMI 22.7
--- NOTE | 2019-05-19 00:14 | NUR ---
TRANSPORTED ONTO FLOOR FROM DIALYSIS. TOLERATED WELL. IV TO THE RT UPPER ARM WITH NO REDNESS OR SWELLING NOTED. LETHARGIC BUT RESPONDS TO VOICE. ONCE AWAKE IS CONVERSANT. PLACED ON NC @6L AND DRESSING NOTED TO THE RT FOOT. FISTULA NOTED TO THE LEFT ARM. DRE ALARM ON. WILL CONTINUE TO MONITOR.
--- NOTE | 2019-05-19 08:08 | NUR ---
The patient is sleepy, he is easy to arouse. He has left leg and foot edema, dressing to back of leg for blisters. Right foot dressing r/t post surgery. bilingual instructor put him on O2 at 6 per N/C.
[2019-05-19 10:44] LABS: ALBUMIN 1.7 g/dL (3.4-5.0); BILIRUBIN - TOTAL 0.68 mg/dL (0.2-1.3); CREATININE - SERUM 6.8 mg/dL (0.6-1.3)
[2019-05-19 10:45] LABS: ANION GAP 18.7 mmol/L (8-16); BASOPHILS 0.2 % (0-2); CARBON DIOXIDE 26.2 mmol/L (21.0-32.0); EOSINOPHILS 0.4 % (0-7); HEMATOCRIT 27.3 % (42.0-54.0); HEMOGLOBIN 8.4 g/dL (13.5-17.5); IMMATURE GRANULOCYTES 2.1 % (0-5); LYMPHOCYTES 5.5 % (15-50); MCHC 30.8 g/dL (31.0-37.0); MCV 87.8 fL (80.0-100.0); MEAN PLATELET VOLUME 10.5 fL (7.4-10.4); MONOCYTES 4.6 % (2-11); NEUTROPHILS 87.2 % (40-80); PLATELET COUNT 139 10x3/uL (130-400); POTASSIUM - SERUM 4.9 mmol/L (3.5-5.1); RBC 3.11 10x6/uL (4.20-6.10); RDW 16.2 % (11.5-14.5); WBC 22.3 10x3/uL (4.8-10.8)
--- NOTE | 2019-05-19 11:00 | NUR ---
Asked the patient if he would like a pain pill as he is grimacing when his legs move. He denies the need at this time.
--- NOTE | 2019-05-19 13:09 | NUR ---
The patient is not using his oxygen and he then gets confused. He says he is hurting, but he doesn't know what to rate it. Provided percocet, see SWATI.
--- NOTE | 2019-05-19 16:24 | NUR ---
PT SAY HE DONT SMOKE
--- NOTE | 2019-05-19 19:10 | NUR ---
BEDSIDE REPORT RECEIVED FROM DAY SHIFT, PT CARE ASSUMED. INTRODUCED SELF AND WROTE NAME ON BOARD. PT SITTING UP IN BED WATCHING TV, AAOX4. REPOSITIONED FOR COMFORT. DENIES ANY OTHER NEEDS AT THIS TIME. BED IN LOWEST POSITION, SR X2, BED ALARM ON AND FUNCTIONING, CALL LIGHT WITHIN REACH. WILL CONTINUE TO MONITOR.
--- NOTE | 2019-05-19 20:15 | NUR ---
PT C/O DRESSING TO LEFT LOWER LEG "CUTTING OFF CIRCULATION". ASSESSED DRESSING, ABLE TO SLIDE TWO FINGERS UNDERNEATH ELISABETH BANDAGE, EXPLAINED TO PT PURPOSE OF ELISABETH BANDAGE WAS TO HELP WITH THE SWELLING, THE NEXT DRESSING CHANGE WAS SCHEDULED IN THE AM, KERLIX AND ELISABETH BANDAGE C/D/I. PT VERBALIZED UNDERSTANDING. BED IN LOWEST POSITION, SR X2, CALL LIGHT WITHIN REACH. WILL CONTINUE TO MONITOR.
--- NOTE | 2019-05-19 22:00 | NUR ---
PT CALLED NURSES STATION FROM ROOM, STATING "THE RUBBER ON MY LEG IS TOO TIGHT. I DON'T WANT TO PRESS CHARGES, BUT I WILL." ENTERED ROOM TO FIND PT HAD ATTEMPTED TO REMOVE BANDAGE AND DRESSING, CAUSING THE BANDAGE TO BECOME TIGHTER THAN WHEN IT WAS ASSESSED EARLIER. NASAL CANNULA WAS LYING IN THE BED, REAPPLIED AND EXPLAINED IMPORTANCE OF WEARING IT CORRECTLY. PIV FOUND ON BEDSIDE TABLE, CATHETER TIP INTACT, NO S/S OF BLEEDING AT SITE. PT STATES, "I TOOK IT OUT FOR ATTENTION." EXPLAINED THE NEED FOR IV ACCESS AND IV MEDS ORDERED, VERBALIZED UNDERSTANDING, REFUSING ATTEMPT TO RESITE AT THIS TIME. ASSESSED LOC, AAOX3, DISORIENTED TO SITUATION. STATES HE IS IN THE HOSPITAL BECAUSE "PEOPLE THINK I'M CRAZY." REORIENTED, EXPLAINED THE ROLE OF OXYGEN IN THE BRAIN AND WHAT HAPPENS WHEN ENOUGH OXYGEN ISN'T GETTING TO THE BRAIN. VERBALIZED UNDERSTANDING. DRESSING CHANGE TO LEFT LOWER EXTREMITY, PER ORDER. NIGHT TIME MEDS AND PRN PERCOCET ADMINISTED, PER ORDER. REPORTS LOWER LEFT LEG PAIN OF 8, ON A SCALE OF 0-10. DENIES ANY OTHER NEEDS AT THIS TIME. BED IN LOWEST POSITION, SR X2, BED ALARM ON AND FUNCTIONING, CALL LIGHT WITHIN REACH. WILL CONTINUE TO MONITOR.
--- NOTE | 2019-05-20 03:15 | NUR ---
ATTEMPTED TO RESITE PIV X4 UNSUCCESSFULLY, PT TOLERATED WELL, NO S/S OF BLEEDING. BED ALARM ON AND FUNCTIONING PROPERLY, BED IN LOWEST POSITION, SR X2, CALL LIGHT WITHIN REACH. WILL CONTINUE TO MONITOR.
[2019-05-20 08:38] VITALS: BP 126/51
[2019-05-20 08:56] LABS: ALBUMIN 1.8 g/dL (3.4-5.0); ANION GAP 21.1 mmol/L (8-16); BILIRUBIN - TOTAL 0.6 mg/dL (0.2-1.3); CALCIUM 7.6 mg/dL (8.5-10.1); CREATININE - SERUM 7.7 mg/dL (0.6-1.3); MAGNESIUM - SERUM 2.4 mg/dL (1.8-2.4); PHOSPHOROUS 7.5 mg/dL (2.5-4.9); POTASSIUM - SERUM 5.1 mmol/L (3.5-5.1); PROTEIN - SERUM 6.3 g/dL (6.4-8.2)
[2019-05-20 09:09] LABS: BASOPHILS 0.2 % (0-2); EOSINOPHILS 0.5 % (0-7); HEMATOCRIT 27.4 % (42.0-54.0); HEMOGLOBIN 8.3 g/dL (13.5-17.5); IMMATURE GRANULOCYTES 1.7 % (0-5); LYMPHOCYTES 4.3 % (15-50); MCH 26.7 pg (26.0-34.0); MCHC 30.3 g/dL (31.0-37.0); MCV 88.1 fL (80.0-100.0); MONOCYTES 4.6 % (2-11); NEUTROPHILS 88.7 % (40-80); PLATELET COUNT 117 10x3/uL (130-400); RBC 3.11 10x6/uL (4.20-6.10); RDW 16.3 % (11.5-14.5); WBC 19.7 10x3/uL (4.8-10.8)
--- NOTE | 2019-05-20 10:13 | NUR ---
RESTING IN BED, NO DISTRESS NOTED, AWAITING NEW IV, CONT TO MONITOR CONFUSION, DRESSINGS TO LOWER LEGS IN PLACE
--- NOTE | 2019-05-20 13:23 | NUR ---
1030 TAKEN TO DIALYSIS PER BED
[2019-05-20 13:36] VITALS: BP 145/56
[2019-05-20 18:27] VITALS: BP 151/55
[2019-05-20 19:30] VITALS: BP 124/52
--- NOTE | 2019-05-20 20:13 | NUR ---
DRESSING CHANGED TO BOTH LOWER LEGS, SOHAM WELL
[2019-05-21 00:46] VITALS: BP 109/51
[2019-05-21 04:30] VITALS: BP 118/56
[2019-05-21 07:35] LABS: BASOPHILS 0.1 % (0-2); EOSINOPHILS 0.5 % (0-7); HEMATOCRIT 26.9 % (42.0-54.0); HEMOGLOBIN 8.2 g/dL (13.5-17.5); IMMATURE GRANULOCYTES 2.1 % (0-5); MCH 26.8 pg (26.0-34.0); MCHC 30.5 g/dL (31.0-37.0); MCV 87.9 fL (80.0-100.0); MEAN PLATELET VOLUME 10.1 fL (7.4-10.4); MONOCYTES 6.2 % (2-11); NEUTROPHILS 87.1 % (40-80); RBC 3.06 10x6/uL (4.20-6.10); RDW 16.6 % (11.5-14.5); WBC 19.9 10x3/uL (4.8-10.8)
[2019-05-21 07:36] LABS: PLATELET COUNT 93 10x3/uL (130-400)
--- NOTE | 2019-05-21 08:10 | NUR ---
RESTING IN BED, FAMILY IN ROOM, NO DISTRESS NOTED, CONT TO MONITOR PAIN, DRESSINGS TO LOWER LEGS DRY AND INTACT, SL TO RIGHT SHOULDER
[2019-05-21 08:28] LABS: PLATELET ESTIMATE DECREASED
[2019-05-21 09:04] LABS: ALBUMIN 1.9 g/dL (3.4-5.0); BILIRUBIN - TOTAL 0.71 mg/dL (0.2-1.3); CALCIUM 7.5 mg/dL (8.5-10.1); CARBON DIOXIDE 27.3 mmol/L (21.0-32.0); CREATININE - SERUM 5.6 mg/dL (0.6-1.3); PHOSPHOROUS 5.7 mg/dL (2.5-4.9); POTASSIUM - SERUM 4.3 mmol/L (3.5-5.1); PROTEIN - SERUM 6.2 g/dL (6.4-8.2)
[2019-05-21 09:11] VITALS: BP 95/50
[2019-05-21 12:23] VITALS: Ht 180.3 cm; Wt 64.6 kg
[2019-05-21 13:29] VITALS: BP 103/41
--- NOTE | 2019-05-21 15:08 | MORECARE ---
CASE MANAGEMENT DISCHARGE SUMMARY PATIENT: PABLO CUNHA UNIT: [id number] ADM DATE: 05/18/19 AGE: 59 : 58 SEX: M ROOM/BED: D.2236 AUTHOR: MICA,DOC PHYSICIAN: REFERRING PHYSICIAN: SABRA COLLINS MD DATE OF SERVICE: 05/21/19 Discharge Plan Patient Name: PABLO CUNHA Facility: [facility]:[place] : 1960 Planned Disposition: Home Anticipated Discharge Date: 05/22/19 Discharge Date: Expected LOS: 4 Initial Reviewer: [email or web address] Initial Review Date: 05/18/2019 Generated: 05/21/19 4:07 pm Comments DCP- Discharge Planning Updated by [email or web address]: Johannadottie Flores on 05/21/19 2:[address] CM SPENT 40 MINUTES TALKING WITH 2 OF THE PATIENT'S SISTERS AND ONE BROTHER. THEY ARE CONCERNED ABOUT HIS DECISION MAKING ABILITY. HE DOES NOT WISH TO HAVE AN AMPUTATION. HE HAS SOME DEGREE OF [id number]. THEY HAD QUESTIONS ABOUT POA, TRANSFERING HIM TO [place], [place], MEDICAID COVERAGE, HIS TREAMENT PLAN. THEY HAVE SPOKEN TO EAN GRANADOS, DR LOPEZ, DR HERNANDEZ AND THE ORTHO MD. THEY ARE EXTREMELY CONCERNED. THEY HAVE SPOKEN W/ HIS CHILDREN WHO REPORTEDLY DO NOT UNDERSTAND HOW SICK HE IS. HIS CHILDREN LIVE OUT OF STATE. I PROVIDED TWO CONTACT NUMBERS FOR MEDICAID FOR THEIR QUESTIONS. I REVIEWED THE PLAN FOR THE NEXT 24 HRS. I SUGGESTED THEY CALL HIS HD UNIT TO SEE IF HE HAS A POA ON RECORD. HIS SISTER, ROSELIA ESTES, IS THE PRIMARY GIFT OFFICER AND WHO THE PATIENT LISTED FOR EMERGENCY CONTACT. SHE WAS THE PRIMARY PERSON ASKING QUESTIONS AND TAKING NOTES. THEY WISH TO SPEAK WITH DR COLLINS. ROSELIA ESTES- . DCP- Discharge Planning Updated by [id number]: Telma Ramsey on 05/18/19 5:[address] DC PLAN: Return home alone. ANTICIPATED DC NEEDS: denied known dc needs at time of assessment in the ER. CM met with patient to complete initial dc planning assessment. CM educated patient on the CM role and verbal consent given by patient to complete assessment. CM verified patient's address, phone number, and emergency contact phone numbers. Patient lives at home alone and reports he is independent in his care. He goes to - via scat transport to and from. He reports he also goes to the wound clinic for his R ankle. He reports he is currently taking po vancomycin and IV Vanco at HD. At discharge patient plans to return home and feels this is a safe discharge. CM discussed availability of home health, rehab services, and medical equipment. Patient denied known discharge needs at this time. Transportation provider at discharge will be an ambulance. CM will continue to follow and will assist as needed with dc plans/needs. Telma Ramsey RN, [facility] DCPIA - Discharge Planning Initial Assessment Updated by [id number]: Telma Ramsey on 05/18/19 6:16 pm * Is the patient Alert and Oriented? Yes * PCP Dr. Collins * Pharmacy [facility] in [place] * Preadmission Environment Home Alone * ADLs Independent * Equipment Bedside Commode Cane Rolling Walker Wheelchair * List name and contact numbers for known caregivers / representatives who currently or will assist patient after discharge: Roselia Estes [facility] [phone] * Verbal permission to speak to the caregivers and representatives has been obtained from the patient. Yes * Community resources currently utilized None * Please name any agencies selected above. Hemodialysis at [facility] transportation * Additional services required to return to the preadmission environment? No * Can the patient safely return to the preadmission environment? Yes * Has this patient been hospitalized within the prior 30 days at any hospital? Yes Last DP export: 05/18/19 5:23 pm Patient Name: PABLO CUNHA Page [id number] at 1508 All edits/amendments must be made on the electronic document DICTATION DATE: 05/21/19 1507 LAY OUT MACHINE OPERATOR: SUELLEN 05/21/19 1507 RPT#: [id number] DC DATE: STATUS: ADM IN [facility] [address] [place] [address] END OF REPORT
[2019-05-21 17:10] VITALS: BP 141/48
--- NOTE | 2019-05-21 17:35 | NUR ---
DRESSING CHANGED TO BILATERAL LEGS, WOUNDS MEASURED, RIGHT LEG WITH LOOKS LIKE 2 RUPTURED BLISTERS, MEASURE 6X8 AND 2X4, TREATED WITH BETADINE AND WRAPPED, LEFT LEG WITH INNER ASPECT SURGICAL WOUND MEASURES 17CM WITH IN THAT SUTURE LINE THERE IS A 1X2 CM AREA WHERE SUTURES HAVE PULLED LOOSE, OUTER ASPECT OF THIS ANKLE IS AN 11 CM SURGICAL WOUND WITH A 1X3 CM AREA WHERE SUTURES HAVE PULLED LOOSE, ALSO A 2X5 CM WOUND THAT HAS PACKING IN PLACE, THESE AREAS WERE ALL CLEANED WITH NS AND REDRESSED WITH WET TO DRY DRESSING AND WRAPPED WITH SPLINT IN PLACE, SOHAM WELL
[2019-05-21 19:30] VITALS: BP 107/50
--- NOTE | 2019-05-21 19:30 | NUR ---
PT CONFUSED AN DLETHARGIC. FAMILY AT BEDSIDE. DRESSING TO BILAT LOWER EXTREMITIES C/D/I. CONTINUE PLAN OF CARE.
[2019-05-22 00:41] VITALS: BP 110/62
--- NOTE | 2019-05-22 01:48 | NUR ---
I have reviewed this patient and I concur with the Shift Assessment completed by the Licensed Practical Nurse today this shift.
[2019-05-22 04:30] VITALS: BP 114/67
[2019-05-22 07:23] LABS: ANION GAP 20.5 mmol/L (8-16); BILIRUBIN - TOTAL 0.8 mg/dL (0.2-1.3); CALCIUM 7.5 mg/dL (8.5-10.1); CARBON DIOXIDE 25.8 mmol/L (21.0-32.0); CREATININE - SERUM 6.5 mg/dL (0.6-1.3); MAGNESIUM - SERUM 2.1 mg/dL (1.8-2.4); PHOSPHOROUS 6.2 mg/dL (2.5-4.9); POTASSIUM - SERUM 4.3 mmol/L (3.5-5.1); PROTEIN - SERUM 6.8 g/dL (6.4-8.2)
[2019-05-22 07:24] LABS: ALBUMIN 2.6 g/dL (3.4-5.0)
[2019-05-22 07:45] LABS: BASOPHILS 0.1 % (0-2); EOSINOPHILS 0.6 % (0-7); HEMATOCRIT 25.2 % (42.0-54.0); HEMOGLOBIN 7.8 g/dL (13.5-17.5); IMMATURE GRANULOCYTES 2.7 % (0-5); LYMPHOCYTES 6.3 % (15-50); MCV 87.2 fL (80.0-100.0); MEAN PLATELET VOLUME 10.7 fL (7.4-10.4); MONOCYTES 7.3 % (2-11); PLATELET COUNT 95 10x3/uL (130-400); RBC 2.89 10x6/uL (4.20-6.10); RDW 17.3 % (11.5-14.5); WBC 19.3 10x3/uL (4.8-10.8)
[2019-05-22 09:04] VITALS: BP 112/67
[2019-05-22 13:34] VITALS: BP 136/89
[2019-05-22 16:55] VITALS: BP 120/59
--- NOTE | 2019-05-22 17:59 | NUR ---
PT REFUSED TO GET DRESSING CHANGES AT THIS TIME STATING " FAMILY STATED THAT THEY WANTED TO WAIT UNTIL AFTER HE HAS SPOKEN TO THE MD , CAUSE THE PAIN MEDICATION WILL HAVE HIM TO SLEEP." THIS NURSE INFORMED THEN THAT SHE WILL INFOMRM ON COMING NURSE ABOUT CHANING DRESSING. C/L IN REACH AT BEDSIDE.
--- NOTE | 2019-05-22 19:18 | NUR ---
I have reviewed this patient and I concur with the Shift Assessment completed by the Licensed Practical Nurse today this shift.
[2019-05-22 19:30] VITALS: BP 128/52
[2019-05-23 00:39] VITALS: BP 120/54
[2019-05-23 05:12] VITALS: BP 131/49
--- NOTE | 2019-05-23 06:21 | NUR ---
I have reviewed this patient and I concur with the Shift Assessment completed by the Licensed Practical Nurse today this shift.
[2019-05-23 07:06] LABS: ALBUMIN 2.3 g/dL (3.4-5.0); ANION GAP 20.6 mmol/L (8-16); BILIRUBIN - TOTAL 1.06 mg/dL (0.2-1.3); CALCIUM 8.3 mg/dL (8.5-10.1); CARBON DIOXIDE 25.1 mmol/L (21.0-32.0); CREATININE - SERUM 7.6 mg/dL (0.6-1.3); MAGNESIUM - SERUM 2.1 mg/dL (1.8-2.4); POTASSIUM - SERUM 4.7 mmol/L (3.5-5.1)
[2019-05-23 07:29] LABS: BASOPHILS 0.1 % (0-2); EOSINOPHILS 0.6 % (0-7); HEMATOCRIT 25.3 % (42.0-54.0); IMMATURE GRANULOCYTES 1.7 % (0-5); LYMPHOCYTES 5.1 % (15-50); MCH 27.3 pg (26.0-34.0); MCHC 31.6 g/dL (31.0-37.0); MCV 86.3 fL (80.0-100.0); MEAN PLATELET VOLUME 10.5 fL (7.4-10.4); MONOCYTES 6.7 % (2-11); NEUTROPHILS 85.8 % (40-80); PLATELET COUNT 88 10x3/uL (130-400); RBC 2.93 10x6/uL (4.20-6.10); RDW 17.5 % (11.5-14.5); WBC 18.5 10x3/uL (4.8-10.8)
--- NOTE | 2019-05-23 07:37 | NUR ---
PT RESTING PEACEFULLY, EYES CLOSED, BREATHS EVEN REGULAR AND UNLABORED. NO SIGNS OR SYMPTOMS OF ACUTE DISTRESS NOTED AT THIS TIME. SISTER AT BEDSIDE, ALSO RESITNG PEACEFULLY. SPOKE WITH DR. HERNANDEZ, TOLD TO CALL [facility] AND ASK IF BOTH CEFEPIME AND ZOSIN WERE ACTUALLY WANTED, D/T NOTES ON ZOSIN INDICATING IT MAY CAUSE LOW PLT COUNT. CL IN REACH, SRX2.
--- NOTE | 2019-05-23 08:10 | NUR ---
PT PULLED I/V OUT. WILL RESITE.
[2019-05-23 09:17] VITALS: BP 98/52
[2019-05-23 09:32] LABS: PLATELET ESTIMATE DECREASED
[2019-05-23 09:34] LABS: TOXIC GRANULATION OCC
[2019-05-23 11:09] LABS: HEPATITIS C ANTIBODY <0.1 S/CO RAT (0.0-0.9)
--- NOTE | 2019-05-23 14:44 | NUR ---
PT BACK FROM DIALYISIS, VASCULAR ACCESS IN ROOM FOR I/V PLACEMENT. PT REFUSING TO ALLOW VASUCLAR ACCESS TO START AN I/V. STATES SHE CAN COME BACK AND DOIT TOMORROW. CL IN REACH, SRX2. FAMILY AT BEDSIDE TRYING TO GET HIME TO AGRE 1500 UPDATE. PT CHANGED MIND. ALLOW VA TO TRY.
[2019-05-23 17:03] VITALS: BP 133/80
--- NOTE | 2019-05-23 17:26 | NUR ---
LYING IN BED,WITHOUT NEEDS.CALL LIGHT IN REACH
--- NOTE | 2019-05-23 18:21 | NUR ---
BILATERAL WOUND CARE PREFORMED PER NURSING ORDERS.
[2019-05-23 19:30] VITALS: BP 133/64
--- NOTE | 2019-05-23 21:29 | NUR ---
REC'D IN BED AT [facility]. OF SHIFT WALKING ROUNDS.EYES OPEN RESP. DEEP AND EVEN CONFUSED AND DISORIENTED . SEVERAL VISITORS AT BEDSIDE. WILL CONTINUE TO MONITOR AND FOLLOW CURRENT PLAN OF CARE. DRE MAT IN PLACE
[2019-05-24] VITALS: BP 128/67
[2019-05-24 05:00] VITALS: BP 117/54
--- NOTE | 2019-05-24 05:00 | NUR ---
I have reviewed this patient and I concur with the Shift Assessment completed by the Licensed Practical Nurse today this shift.
--- NOTE | 2019-05-24 08:00 | NUR ---
PT RECEIVED LAYING BED DROWSY BUT AROUSABLE. DRESSING TO BLE CLEAN AND DRY. IV TO RIGHT WRIST DRESSED WITH KERLIX.
[2019-05-24 09:05] VITALS: BP 117/53
[2019-05-24 09:29] LABS: ALBUMIN 2.1 g/dL (3.4-5.0); ANION GAP 18.1 mmol/L (8-16); BILIRUBIN - TOTAL 0.86 mg/dL (0.2-1.3); CALCIUM 8.8 mg/dL (8.5-10.1); CARBON DIOXIDE 24.5 mmol/L (21.0-32.0); CREATININE - SERUM 5.7 mg/dL (0.6-1.3); MAGNESIUM - SERUM 2.3 mg/dL (1.8-2.4); POTASSIUM - SERUM 4.6 mmol/L (3.5-5.1); PROTEIN - SERUM 6.9 g/dL (6.4-8.2)
[2019-05-24 09:38] LABS: BASOPHILS 0.1 % (0-2); EOSINOPHILS 0.7 % (0-7); HEMATOCRIT 27.4 % (42.0-54.0); HEMOGLOBIN 8.7 g/dL (13.5-17.5); LYMPHOCYTES 5.5 % (15-50); MCH 27.4 pg (26.0-34.0); MCHC 31.8 g/dL (31.0-37.0); MCV 86.2 fL (80.0-100.0); MEAN PLATELET VOLUME 10.8 fL (7.4-10.4); MONOCYTES 6.4 % (2-11); NEUTROPHILS 85.3 % (40-80); PLATELET COUNT 81 10x3/uL (130-400); RBC 3.18 10x6/uL (4.20-6.10); WBC 19.8 10x3/uL (4.8-10.8)
[2019-05-24 11:11] LABS: ANISOCYTOSIS OCC; PLATELET ESTIMATE DECREASED; POLYCHROMASIA OCC; ROULEAUX OCC
[2019-05-24 13:22] VITALS: BP 121/60
--- NOTE | 2019-05-24 13:38 | NUR ---
NUTRITION F/U CHART REVIEWED, PT VISIT. POOR PO INTAKE RECENT MEALS. LUNCH TRAY AT BEDSIDE UMTOUCHED. NOTE NPO AFTER MN FOR SURGERY. WILL PROVIDE DIET WHEN RESUMED AFTER SURGERY, MONITOR PT PROGRESS. RD FOLLOWING
--- NOTE | 2019-05-24 16:00 | NUR ---
DRESSING TO BLE CHANGED PER ORDERS. RLE WITH SUTURES IN PLACE BUT SKIN IS NOT APPROXIMATED AND INCISION IS DRAINING CREAMY FLUID. PT ON FOR BKA SURGERY TOMORROW.
[2019-05-24 17:31] VITALS: BP 124/59
[2019-05-24 20:00] VITALS: BP 139/52
--- NOTE | 2019-05-24 23:38 | NUR ---
REC'D [facility]. OF SHIFT WALKING ROUNDS IN BED WATCHING TV FAMILY MEMBER AT BEDSIDE.ALERT BUT CONFUSED AND DISORIENTEDX3 DRE MAT IN PLACE.DRSG.BILAT LOWER EXT. DRY AND IN PLACE WITH HEELS ELEVATED ON PILLOW WILL CONTINUE TO MONITOR FOR ANY CHGES IN NEUROVASCULAR STATUS AND FOLLOW CURRENT PLAN OF CARE
[2019-05-25] VITALS (22 sets, daily range): BP systolic 96–185; BP diastolic 53–90
--- NOTE | 2019-05-25 04:00 | NUR ---
I have reviewed this patient and I concur with the Shift Assessment completed by the Licensed Practical Nurse today this shift.
--- NOTE | 2019-05-25 08:41 | NUR ---
PT TRANSFERED TO DIALYSIS. WILL CTM.
--- NOTE | 2019-05-25 17:17 | NUR ---
RECIEVED POSTOP REPORT ON PT, WAITING TO RECIEVE TO UNIT.
--- NOTE | 2019-05-25 17:30 | NUR ---
PT ARRIVED TO UNIT AT THIS TIME. PT CONFUSED, REORIENTATION PROVIDED. WILL CONTINUE PLAN OF CARE.
--- NOTE | 2019-05-25 17:45 | NUR ---
EKG ORDERED POST OP PER DR. BOB. EKG CHANGES NOTED SHOWING ATRIAL FIBRILLATION WITH HEART RATE 126. REVIEWED BY DR. BOB. VERBAL ORDERS TO ADMINISTER ESMOLOL 10MG X1 IN PACU NOW. ORDERS RECEIVED AND IMPLEMENTED. WILL CONTINUE TO MONITOR.
--- NOTE | 2019-05-25 17:48 | NUR ---
CARDIOLOGY CONSULT ORDERED BY DR. BOB AND DR. HITCHCOCK. PLACED A CALL TO DR. JIMENEZ (MANAGER OF HOUSEKEEPING) PRESS CUTTER. DR. BOB SPOKE WITH DR. JIMENEZ AND ORDERS FOR DIGOXIN 0.5MG IV X1 TO BE GIVEN UPON ARRIVAL OF TRANSFER TO ICU. ORDERS RECEIVED AND IMPLEMENTED. MUNIRA CASON, RN RECEIVING NURSE VERBALIZED UNDERSTANDING OF THE ABOVE.
--- NOTE | 2019-05-25 18:08 | NUR ---
RT UPPER ARM RED, HOT TO TOUCH, HARD, AND PAINFUL PER PT. ORDERS RECIEVED FOR US TO R/O DVT.
--- NOTE | 2019-05-25 18:16 | NUR ---
FAMILY AT BEDSIDE AT THIS TIME. UPDATES PROVIDED.
--- NOTE | 2019-05-25 18:32 | NUR ---
ONE TIME DOSE OF DIGOXIN ADMIN PER CARDIOLOGY ORDERS AT 1800, HEART RATE STILL TRENDING 117-[address]. [address] JIMENEZ, GIVE 20 CARDIZEM NOW AND THEN START GTT AT 15 BUT DECREASE BASED ON HEART RATE SO THAT PT DOES NOT BECOME BRADCARDIC.
[2019-05-26] VITALS (41 sets, daily range): BP systolic 113–172; BP diastolic 46–104
[2019-05-26 04:23] LABS: ANION GAP 17.6 mmol/L (8-16); CALCIUM 8.8 mg/dL (8.5-10.1); CARBON DIOXIDE 28.1 mmol/L (21.0-32.0); CREATININE - SERUM 4.9 mg/dL (0.6-1.3); PHOSPHOROUS 5.4 mg/dL (2.5-4.9); POTASSIUM - SERUM 4.7 mmol/L (3.5-5.1)
[2019-05-26 04:58] LABS: HEMATOCRIT 30.2 % (42.0-54.0); HEMOGLOBIN 9.3 g/dL (13.5-17.5); MCH 27.4 pg (26.0-34.0); MCHC 30.8 g/dL (31.0-37.0); MCV 89.1 fL (80.0-100.0); MEAN PLATELET VOLUME 10.4 fL (7.4-10.4); PLATELET COUNT 111 10x3/uL (130-400); RBC 3.39 10x6/uL (4.20-6.10); RDW 19.8 % (11.5-14.5); WBC 20.7 10x3/uL (4.8-10.8)
--- NOTE | 2019-05-26 07:00 | NUR ---
BEDSIDE REPORT RECEIVED. SHIFT ASSESSMENT COMPLETED PER FLOWSHEET, SEE FLOWSHEET FOR INFORMATION. PT RESTING IN BED WITH EYES CLOSED. NO ACUTE NEEDS OR DISTRESS NOTED AT THIS TIME. WILL CONT TO MONITOR.
--- NOTE | 2019-05-26 09:00 | NUR ---
REORIENTED TO ROOM AND SO PT WOULD STOP PULLING ALL EQUIPMENT OFF. PT VERBALIZED UNDERSTANDING TO LEAVE EVERYTHING. NO ACUTE NEEDS OR DISTRESS NOTED AT THIS TIME. VSS. WILL CONT TO MONITOR.
[2019-05-26 10:04] LABS: LYMPHOCYTES 3 % (15-50); MONOCYTES 12 % (2-11); NEUTROPHILS 80 % (40-80); PLATELET ESTIMATE DECREASED
[2019-05-26 10:05] LABS: HYPER SEGMENTED NEUTROPHILS OCC
--- NOTE | 2019-05-26 10:48 | NUR ---
NUTRITION F/U PT S/P RT BKA. RENAL DIET STARTED. WILL PROVIDE DIET, MONITOR PO INTAKE. RD FOLLOWING
--- NOTE | 2019-05-26 11:00 | NUR ---
REASSESSMENT COMPLETD PER FLOWSHEET, SEE FLOWSHEET FOR INFORMATION. NO ACUTE NEEDS OR DISTRESS NOTED AT THIS TIME. WILL CONT TO MONITOR.
--- NOTE | 2019-05-26 13:00 | NUR ---
PT RESTING IN BED WITH EYES OPEN. NO ACUTE NEEDS OR DISTRESS NOTED AT THIS TIME. VSS. WILL CONT TO MONITOR.
--- NOTE | 2019-05-26 15:00 | NUR ---
REASSESSMENT COMPLETED PER FLOWSHEET, SEE FLOWSHEET FOR INFORMATION. FAMILY GIVEN UPDATE. NO ACUTE NEEDS OR DISTRESS NOTED AT THIS TIME. WILL CONT TO MONITOR.
--- NOTE | 2019-05-26 17:00 | NUR ---
PT FAMILY AT BEDSIDE, UPDATE GIVEN. WILL CONT TO MONITOR.
--- NOTE | 2019-05-26 19:00 | NUR ---
ASSESSMENT COMPLETED. CONFUSED TO PLACE, TIME, AND SITUATION. ATTEMPTED TO REORIENT WITHOUT SUCCESS. CALL LIGHT IN REACH.
--- NOTE | 2019-05-26 21:00 | NUR ---
EASILY WAKES. DENIES ANY NEEDS. CONFUSION. REPOSITIONED.
--- NOTE | 2019-05-26 23:00 | NUR ---
WALKED IN PATIENT'S ROOM AFTER MONITOR ALARMING. PATIENT HAD PULLED OFF ALL OF HIS LEADS, PULSE OX MONITOR, AND IV. RESTARTED IV X 2 STICKS TO RIGHT UPPER ARM. GIVEN CHG BATH WITH COMPLETE LINEN CHANGE. CONT CONFUSION. ATTEMPTED TO REORIENT WITHOUT SUCCESS
[2019-05-27] VITALS (23 sets, daily range): BP systolic 128–162; BP diastolic 51–75
--- NOTE | 2019-05-27 01:00 | NUR ---
PATIENT TALKING TO SELF. TRYING TO GET UP. BED ALARM ON. PATIENT TOOK OFF LEADS AGAIN
--- NOTE | 2019-05-27 03:00 | NUR ---
RE-ASSESSMENT COMPLETED. CONFUSION CONT. NO CHANGES SINCE LAST ASSESSMENT
--- NOTE | 2019-05-27 05:00 | NUR ---
REPOSITIONED. DENIES ANY NEEDS
[2019-05-27 05:25] LABS: BASOPHILS 0.1 % (0-2); EOSINOPHILS 0.2 % (0-7); HEMATOCRIT 27.9 % (42.0-54.0); HEMOGLOBIN 8.5 g/dL (13.5-17.5); IMMATURE GRANULOCYTES 0.8 % (0-5); LYMPHOCYTES 5.2 % (15-50); MCH 27.2 pg (26.0-34.0); MCHC 30.5 g/dL (31.0-37.0); MCV 89.4 fL (80.0-100.0); MONOCYTES 5.1 % (2-11); NEUTROPHILS 88.6 % (40-80); PLATELET COUNT 112 10x3/uL (130-400); RBC 3.12 10x6/uL (4.20-6.10); RDW 20.1 % (11.5-14.5); WBC 19.6 10x3/uL (4.8-10.8)
[2019-05-27 05:38] LABS: ANION GAP 19.6 mmol/L (8-16); CALCIUM 8.6 mg/dL (8.5-10.1); CARBON DIOXIDE 25.4 mmol/L (21.0-32.0); CREATININE - SERUM 6.1 mg/dL (0.6-1.3); PHOSPHOROUS 6.2 mg/dL (2.5-4.9)
--- NOTE | 2019-05-27 09:00 | NUR ---
REFUSED 0900 MEDICTIONS, PT SPIT OUT WATER AND PILLS ON NURSE. PUT MASK ON PT COVERING HIS MOUTH. DIALYSIS AT BEDSIDE. WILL CONT TO MONITOR.
--- NOTE | 2019-05-27 10:28 | NUR ---
RESTRAINTS PUT ON PT, PT SPIT AT NURSES AND TAKING IVS OUT, PULLING BLOOD PRESSURE CUFF OFF AND THREATENING TO HIT NURSES. HANY MCKOY PAGED. WILL CONT TO MONITOR.
--- NOTE | 2019-05-27 10:30 | NUR ---
DRESSING CHANGED ON LLE. SKIN SLUGHING OFF, PUSS UNDER SKIN. SKIN PREPPED WITH BETADINE, 4X4 GUAZE USED, SECURED WITH ABD PAD AND KURLEX, WRAPPED WITH KOBAN. WILL CONT TO MONITOR.
--- NOTE | 2019-05-27 11:00 | NUR ---
REASSESSMENT COMPLETED PER FLOWSHEET, SEE FLOWSHEET FOR INFORMATION. DIALYSIS AT BEDSIDE. WILL CONT TO MONITOR.
--- NOTE | 2019-05-27 13:00 | NUR ---
PT RESTING IN BED WITH EYES CLOSED. NO ACUTE NEEDS OR DISTRESS NOTED AT THIS TIME. WILL CONT TO MONITOR.
--- NOTE | 2019-05-27 15:00 | NUR ---
REASSESSMENT COMPLETED PER FLOWSHEET, SEE FLOWSHEET FOR INFORMATION. WILL CONT TO MONITOR.
--- NOTE | 2019-05-27 17:00 | NUR ---
AT BEDSIDE, WILL CONT TO MONITOR.
--- NOTE | 2019-05-27 19:00 | NUR ---
ASSESSMENT COMPLETED. LAYING IN BED, EYES CLOSED. EASILY WAKES TO NAME. O2 AT 2L VIA NC. REPOSITIONED. CONFUSION CONT
--- NOTE | 2019-05-27 21:00 | NUR ---
REPOSITIONED. DENIES ANY NEEDS.
--- NOTE | 2019-05-27 23:00 | NUR ---
REASSESSMENT COMPLETED. NO CHANGES SINCE LAST ASSESSMENT
[2019-05-28] VITALS (24 sets, daily range): BP systolic 104–179; BP diastolic 56–87
--- NOTE | 2019-05-28 01:00 | NUR ---
REPOSITIONED. EYES CLOSED, EASILY WAKES.
--- NOTE | 2019-05-28 03:00 | NUR ---
REASSESSMENT COMPLETED. NO CHANGES SINCE LAST ASSESSMENT
--- NOTE | 2019-05-28 05:00 | NUR ---
CHG BATH WITH COMPLETE LINEN CHANGE. ASKING TO GET ANTS OFF. ATTEMPTED TO REORIENT.
[2019-05-28 05:29] LABS: BASOPHILS 0 % (0-2); EOSINOPHILS 0.3 % (0-7); HEMATOCRIT 27.4 % (42.0-54.0); HEMOGLOBIN 8.4 g/dL (13.5-17.5); IMMATURE GRANULOCYTES 0.6 % (0-5); MCH 27.4 pg (26.0-34.0); MCHC 30.7 g/dL (31.0-37.0); MCV 89.3 fL (80.0-100.0); MEAN PLATELET VOLUME 10.2 fL (7.4-10.4); MONOCYTES 6.7 % (2-11); NEUTROPHILS 88.4 % (40-80); PLATELET COUNT 131 10x3/uL (130-400); RBC 3.07 10x6/uL (4.20-6.10); RDW 20.3 % (11.5-14.5); WBC 16.8 10x3/uL (4.8-10.8)
[2019-05-28 05:50] LABS: ANION GAP 18.4 mmol/L (8-16); CALCIUM 8.7 mg/dL (8.5-10.1); CARBON DIOXIDE 26.2 mmol/L (21.0-32.0); CREATININE - SERUM 4.8 mg/dL (0.6-1.3); PHOSPHOROUS 5.7 mg/dL (2.5-4.9); POTASSIUM - SERUM 4.6 mmol/L (3.5-5.1); VANCOMYCIN - RANDOM 14.7 ug/mL (10.0-20.0)
--- NOTE | 2019-05-28 07:00 | NUR ---
BEDSIDE REPORT RECEIVED. SHIFT ASSESSMENT COMPLETED PER FLOWSHEET, SEE FLOWSHEET FOR INFORMATION. PT RESTING IN BED WITH EYES CLOSED. UPON ENTERING ROOM PT HAS PULLED OUT RIGHT GROIN CENTRAL LINE PLACED YESTERDAY, PT IN RESTRAINTS. WILL CONT TO MONITOR.
--- NOTE | 2019-05-28 08:00 | OP ---
PATIENT NAME: PABLO CUNHA MEDICAL RECORD: [id number] :58 LOCATION:.[facility] [id number] ADMISSION DATE:05/18/19 SURGEON: MERI HITCHCOCK MD DATE OF OPERATION: 05/25/2019 PREOPERATIVE DIAGNOSES: 1. Chronic osteomyelitis of the right lower extremity with Charcot arthropathy. 2. Chronic renal insufficiency - dialysis patient. 3. Previous sepsis. 4. Lymphoma. POSTOPERATIVE DIAGNOSES: 1. Chronic osteomyelitis of the right lower extremity with Charcot arthropathy. 2. Chronic renal insufficiency - dialysis patient. 3. Previous sepsis. 4. Lymphoma. PROCEDURE: Right below-knee amputation. SURGEON: Meri Hitchcock MD INTRAOPERATIVE COMPLICATIONS: None. SUMMARY OF PATHOLOGIC FINDINGS: While the patient did have vascular disease, the amputation did appear to have excellent blood flow. The popliteal artery was ligated just above the trifurcation and after ligation the patient still had excellent blood flow to the posterior flap. No evidence of bony pathology was noted at the place of corticotomy. INDICATIONS: This is a 59-year-old male with severe bilateral Charcot arthropathy. At one point in his history, he had a triple fusion nail that was placed. Unfortunately, it broke down, did not work and eventually became infected, and radiographs as well as further imaging showed the patient to have chronic osteomyelitis. After much trepidation and discussion, the patient finally agreed to have an amputation, so that he could resume his chemotherapeutic treatments for his lymphoma. They had been on hold given his degree of sepsis because of the infection of the lower extremity. Ironically, the contralateral lower extremity is not much better shape but at this point does not show osteomyelitis and does not seem to be the cause of his chronic infection. OPERATIVE SUMMARY IN DETAIL: After obtaining the appropriate preoperative orthopedic surgery consent as well as anesthetic consultation, evaluation and clearance, the patient was brought to the operating room and placed on operating table in supine position. After general laryngeal mask airway was administered, tourniquet was placed about the proximal aspect of the right lower extremity. Right lower extremity was then prepped and draped in routine sterile fashion. At this point, the appropriate timeout was taken and agreed upon by all given the patient's unique identifiers. The planned incision was drawn with a sterile marking pen. This incision was taken down to the level of the tibia and fibula along with creation of the posterior flap at the skin level. Dissection was carried down further and then a power saw was utilized to create the tibial corticotomy and then somewhat more proximal at an angle the fibula was corticotomized. Bone hook was then utilized to bring forth the tibia and an amputation knife was then used to finalize the amputation and create a posterior OPERATIVE REPORT [id number] CUNHA,PABLO flap. At this point, dissection was carried out to find the popliteal artery as well as the nerve. The nerve was then pulled forth and transected for retraction and the popliteal artery was tied off just above the trifurcation. Tourniquet was then let down. No excessive bleeding was noted except for generalized ooze in the posterior flap. This was then irrigated and closed with #2 Ethibond followed by #1 Vicryl and skin job. Sterile dressings were applied. The patient was awakened and taken to recovery room in somewhat critical condition and then transferred to the ICU postoperatively. Having completed this, all final needle and sponge counts were correct. TRANSINT:[id number] Voice Confirmation ID: [id number] DOCUMENT ID: [id number] CORETTA DUNCAN, MERI TAN at 0800 CC: [id number] DICTATION DATE: 05/26/19 1039 STAFF ACCOUNTANT: 05/26/19 1327 ADM IN [place] [id number] [place] [id number]
--- NOTE | 2019-05-28 09:00 | NUR ---
HANY MCKOY NEPHROLOGY AT BEDSIDE. WILL CONT TO MONITOR.
--- NOTE | 2019-05-28 11:00 | NUR ---
REASSESSMENT COMPLETED PER FLOWSHEET, SEE FLOWSHEET FOR INFORMATION. NO ACUTE NEEDS OR DISTRESS NOTED AT THIS TIME. WILL CONT TO MONITOR.
--- NOTE | 2019-05-28 13:00 | NUR ---
REPOSITIONED PER COMFORT. WILL CONT TO MONITOR.
--- NOTE | 2019-05-28 15:00 | NUR ---
REASSESSMENT COMPLETED PER FLOWSHEET, SEE FLOWSHEET FOR INFORMATION. PT CONTINUES TO REPORT THE FEELING OF ANTS BITING HIM. REORIENTED, NO ACUTE NEEDS OR DISTRESS NOTED AT THIS TIME. WILL CONT TO MONITOR.
--- NOTE | 2019-05-28 17:00 | NUR ---
FAMILY AT BEDSIDE, UPDATE GIVEN. NO ACUTE NEEDS OR DISTRESS NOTED AT THIS TIME. WILL CONT TO MONITOR.
--- NOTE | 2019-05-28 19:00 | NUR ---
ASSESSMENT COMPLETED. EYES CLOSED, RESPONDS TO SPEECH BUT WON'T OPEN EYES. DR. COLLINS AT BEDSIDE. REPOSITIONING Q2 HOURS. ON AIR MATTRESS. RESTRAINTS ON GIANNA WRIST
--- NOTE | 2019-05-28 21:00 | NUR ---
EYES OPEN, TALKING WITH NURSE. TOLERATED MEDICATIONS WITHOUT DIFFICULTY. INFORMED PATIENT HE HAS MOSTLY BEEN ASLEEP FOR 2 DAYS. PATIENT DENIED KNOWING THAT. CONFUSED TO PLACE, TIME, AND SITUATION. REPOSITIONED
--- NOTE | 2019-05-28 23:00 | NUR ---
REASSESSMENT COMPLETED. PATIENT IS AWAKE AND TALKING ABOUT ANTS ON HIS LEFT LEG ON THE TOP OF THE FOOT AND A FLY ON HIS LIP. PATIENT DRINKING WITHOUT DIFFICULTY.
[2019-05-29] VITALS (22 sets, daily range): BP systolic 118–198; BP diastolic 52–98
--- NOTE | 2019-05-29 01:00 | NUR ---
PATIENT STARTED YELLING TO PICK HIS ANTS. C/O PAIN TO LEFT LEG. CONFUSED. ATTEMPTED TO REORIENT
--- NOTE | 2019-05-29 03:00 | NUR ---
RE-ASSESSMENT COMPLETED. EYES CLOSED, EASILY AWAKES TO SPEECH. REPOSITIONED
--- NOTE | 2019-05-29 05:00 | NUR ---
REPOSITIONED AND ORAL CARE PROVIDED
--- NOTE | 2019-05-29 05:53 | NUR ---
LLE DRESSING CHANGED PER ORDERS.
--- NOTE | 2019-05-29 07:05 | NUR ---
PT RESTING IN BED, VSS AND WNL. NO SIGNS OF DISTRESS NOTED AT THIS TIME, CALL LIGHT WITHIN REACH. WILL CONT TO FOLLOW POC
[2019-05-29 08:52] LABS: BASOPHILS 0.1 % (0-2); EOSINOPHILS 0.5 % (0-7); HEMATOCRIT 27.3 % (42.0-54.0); HEMOGLOBIN 8.4 g/dL (13.5-17.5); IMMATURE GRANULOCYTES 0.4 % (0-5); MCH 27.4 pg (26.0-34.0); MCHC 30.8 g/dL (31.0-37.0); MCV 88.9 fL (80.0-100.0); MEAN PLATELET VOLUME 10.2 fL (7.4-10.4); MONOCYTES 6.4 % (2-11); NEUTROPHILS 87.6 % (40-80); PLATELET COUNT 118 10x3/uL (130-400); RBC 3.07 10x6/uL (4.20-6.10); RDW 19.9 % (11.5-14.5); WBC 14.9 10x3/uL (4.8-10.8)
--- NOTE | 2019-05-29 09:00 | NUR ---
ATTEMPTED TO FEED PT PUDDING. AFTER ONE BITE PT TO COUGH. PT WAS SITTING IN HIGH FOWLERS AT TIME OF FEEDING. SPEECH THERAPY CONSULTED.
--- NOTE | 2019-05-29 09:09 | NUR ---
Nutrition follow-up: Diet: Renal with Nepro TID Pt coughing after pudding per nursing Swallow eval ordered s/p right BKA Pt is seeing ants Wt: 149# Pt may need nutrition support is po intake remains poor. RDN following.
[2019-05-29 09:12] LABS: ANION GAP 18.7 mmol/L (8-16); CALCIUM 8.5 mg/dL (8.5-10.1); CARBON DIOXIDE 24.7 mmol/L (21.0-32.0); PHOSPHOROUS 5.8 mg/dL (2.5-4.9); POTASSIUM - SERUM 4.4 mmol/L (3.5-5.1); VANCOMYCIN - RANDOM 21.9 ug/mL (10.0-20.0)
[2019-05-29 09:22] LABS: CREATININE - SERUM 6.3 mg/dL (0.6-1.3)
--- NOTE | 2019-05-29 11:00 | NUR ---
PT SITTING IN BED RECIEVING DIALYSIS. NO SIGNS OF DISTRESS NOTED. BED ALARM ON. GIANNA WRIST RESTRAINTS ON. DENIES ANY NEEDS AT THIS TIME, WILL CONT TO FOLLOW POC
--- NOTE | 2019-05-29 12:07 | NUR ---
PT COMPLAINING OF PAIN. PT HAS NOT BEEN SEEN BY SPEECH THERAPY YET. NOTIFIED TONY LAWSON. NEW ORDER RECIEVED TO GIVE A ONE TIME DOSE OF MORPHINE IV NOW. PT NOTIFIED. WILL CONT TO FOLLOW POC
--- NOTE | 2019-05-29 13:42 | NUR ---
PHYSICAL THERAPY HERE AND SAT PT UP TO SIDE OF BED. PT TOLERATED WELL. PT IS LAYING BACK IN BED NOW. BED ALARM ON. VSS AND WNL. NO SIGNS OF DISTRESS NOTED. DENIES ANY FURTHER NEEDS, WILL CONT TO FOLLOW POC
--- NOTE | 2019-05-29 14:33 | OP ---
PATIENT NAME: PABLO CUNHA MEDICAL RECORD: [id number] :58 LOCATION:D.[facility] D.2301 ADMISSION DATE:05/18/19 SURGEON: ALFREDO HANNAH MD DATE OF OPERATION: 05/27/2019 PREOPERATIVE DIAGNOSES: 1. Lack of peripheral IV access. 2. Follicular lymphoma. 3. End-stage renal disease. 4. Osteomyelitis of the right foot, now status post below knee amputation. POSTOPERATIVE DIAGNOSES: 1. Lack of peripheral IV access. 2. Follicular lymphoma. 3. End-stage renal disease. 4. Osteomyelitis of the right foot, now status post below knee amputation. PROCEDURE: Insertion of right groin 20 cm triple lumen central venous catheter. SURGEON: Alfredo Hannah MD ASSISTANTS: None. This patient has been confused. He has pulled out multiple IVs. This procedure was done yesterday on 05/27/2019, but dictated on 05/28/2019. The risks, possible complications, and alternatives to the procedure were explained to the patient. He elects to proceed. OPERATIVE COURSE: The patient was seen in his ICU room. He was positioned in the Trendelenburg position. Interrogation of right neck with ultrasound revealed a compressible internal jugular vein. The right neck and right upper chest were sterilely prepped and draped. Local anesthetic was used to infiltrate the skin and subcutaneous tissue at the base of the right neck. The right internal jugular vein was percutaneously accessed in an antegrade fashion several times easily. Each time, I could not get the guidewire to thread very far. I think the patient likely has a central venous stenosis on that side. I got a new sterile central venous line tray. The left neck and left upper chest was sterilely prepped and draped. Local anesthetic was used to infiltrate the skin and subcutaneous tissues at the base of the left neck. The patient has a subcutaneous mass at the base of the left neck and this may represent a sebaceous cyst or something else, but it was difficult to work around this subcutaneous mass, which is movable. I was able to percutaneously access the left internal jugular vein several times, but here again, I could not get the guidewire to thread very far. This approach was abandoned. There was no significant neck hematoma. A followup chest x-ray revealed no pneumothorax. I then elected to place a groin central venous line, although certainly this is not optimal. The right groin was sterilely prepped and draped. Local anesthetic was used to infiltrate the skin and subcutaneous tissues at the base of the right groin. In an antegrade fashion, I percutaneously accessed the right common femoral vein. A guidewire passed easily. A small skin ronna was accomplished. A vessel dilator was used to dilate a subcutaneous tract. A 20 cm triple lumen central venous catheter was inserted to the hub. It was sutured in place times 2. All lumens flushed easily and aspirated dark, nonpulsatile blood. OPERATIVE REPORT [id number] PABLO CUNHA The central venous line stayed in for a while and then later in the night, the patient pulled out his central line. I will ask the vascular access nurse to place a PICC line tomorrow. TRANSINT:[id number] Voice Confirmation ID: [id number] DOCUMENT ID: [id number] ALFREDO HANNAH MD at 1433 CC: [id number] DICTATION DATE: 05/28/191743 QUALITY ENGINEER MEDICAL DEVICE: 05/29/19 0416 ADM IN [facility] [address] [place] [address]
--- NOTE | 2019-05-29 16:00 | NUR ---
PT RESTING IN BED, VSS AND WNL. NO SIGNS OF DISTRESS NOTED. BED ALARM ON. CALL LIGHT WITHIN REACH, DENIES ANY NEEDS AT THIS TIME, WILL CONT TO FOLLOW POC
--- NOTE | 2019-05-29 16:38 | EC ---
PATIENT:PABLO CUNHA DATE OF SERVICE: 05/18/19 SEX: M MEDICAL RECORD: [id number] DATE OF : 58 LOCATION:[facility] D230 AGE OF PATIENT: 59 ADMISSION DATE: 05/18/19 REFERRING PHYSICIAN: INTERPRETING PHYSICIAN: MARA VERA MD ECHOCARDIOGRAM REPORT ECHO CHARGES 4 ECHO COMPLETE Date: 05/26/19 CLINICAL DIAGNOSIS: AFIB ECHOCARDIOGRAPHIC MEASUREMENTS (adult normal given) AC root (d.<3.7cm) 3.5 cm LV Septum d (<1.2 cm> 0.9 cm Valve Excursion 2.0 cm LV Septum (systole) 1.1 cm Left Atria (s.<4.0cm> 3.9 cm LVPW d(<1.2cm) 1.2 cm RV (d.<2.3cm) 3.8 cm LVPW (sytole) 1.3 cm LV diastole(<5.6CM) 5.5 cm MV E-F(>70mm/sec) cm LV systole 4.2 cm LVOT Diameter 2.1 cm MV exc.(>10mm) cm Est.ejection fraction (50-75%) % DOPPLER: LVIT cm/sec A 168 cm/sec E 60 cm/sec LA cm/sec RVSP 42.0 mmHg LVOT 90 cm/sec AOP1/2T m/s Asc. Ao 140 cm/sec RVOT 77 cm/sec RA cm/sec PA 86 cm/sec AV Gradient Peak 7.9 mmHg AV Mean 4.4 mmHg AV Area 2.9 cm MV Gradient Peak 11.1 mmHg MV Mean 3.8 mmHg MV Area cm COMMENTS: Data Processing Operator: Ronnie [facility] Territory Service Representative: 1 Dr. Vera TAPE# PACS Pericardial Effusion N DATE OF SERVICE: Echocardiogram FINDINGS: 1. Left ventricular chamber size is within normal limits. Left ventricular systolic function is normal. Overall ejection fraction estimated at 60%. 2. Left atrium is within normal limits. Right atrium and right ventricular chamber sizes are mildly dilated. 3. Valvular structures have normal structure and motion. ECHOCARDIOGRAM REPORT [id number] PABLO CUNHA 4. Doppler interrogation reveals mild to moderate tricuspid regurgitation, no other valvular insufficiency or stenosis. Pulmonary systolic pressure is estimated at 42 mmHg. 5. No evidence of pericardial effusion or left ventricular thrombus. TRANSINT:[id number] Voice Confirmation ID: [id number] DOCUMENT ID: [id number] MARA VERA MD at 1638 CC: [id number] DICTATION DATE: 05/26/191703 SAP BOBJ DEVELOPER: 05/27/19 0247 [facility] [place] [id number] [place] [id number]
--- NOTE | 2019-05-29 19:12 | NUR ---
RESTING IN BED WITH EYES CLOSED AT THIS TIME. NO SIGNS OF DISTRESS. S/L TO IV. RESTRAINTS OFF AT THIS TIME. DRESSINGS INTACT. CONTINUE TO MONITOR.
--- NOTE | 2019-05-29 22:05 | NUR ---
RESTLESS IN BED AT THIS TIME. REPOSITION TO RIGHT SIDE. REMOVE SOFT WRIST RESTRAINT TO CHECK SKIN. CONTINUE TO MONITOR.
[2019-05-30] VITALS (21 sets, daily range): BP systolic 90–153; BP diastolic 48–94
--- NOTE | 2019-05-30 00:02 | NUR ---
RESTING IN BED WITH EYES OPEN. VERY CONFUSED. VERBAL THREATS TO THIS NURSE. UNABLE TO REDIRECT AND REORIENT. CONTINUE TO MONITOR.
--- NOTE | 2019-05-30 01:49 | NUR ---
RESISTANT TO CARE. PULLS AT EQUIPMENT. CONTINUE TO ATTEMPT TO REDIRECT AND REORIENT.
--- NOTE | 2019-05-30 03:52 | NUR ---
RESTING IN BED WITH EYES CLOSED. NO SIGNS OF DISTRESS. CONTINUE TO MONITOR FOR SAFETY.
[2019-05-30 08:06] LABS: BASOPHILS 0.1 % (0-2); EOSINOPHILS 0.3 % (0-7); HEMATOCRIT 26.5 % (42.0-54.0); HEMOGLOBIN 8.1 g/dL (13.5-17.5); IMMATURE GRANULOCYTES 0.5 % (0-5); LYMPHOCYTES 6.2 % (15-50); MCH 27.1 pg (26.0-34.0); MCHC 30.6 g/dL (31.0-37.0); MCV 88.6 fL (80.0-100.0); MEAN PLATELET VOLUME 9.8 fL (7.4-10.4); MONOCYTES 6.7 % (2-11); NEUTROPHILS 86.2 % (40-80); PLATELET COUNT 115 10x3/uL (130-400); RBC 2.99 10x6/uL (4.20-6.10); RDW 19.6 % (11.5-14.5); WBC 12.6 10x3/uL (4.8-10.8)
--- NOTE | 2019-05-30 08:20 | NUR ---
0700 REPORT RECIEVED AND CARE ASSUMED OF PATIENT.. PT VOMITED ON SELF .. LIDIA EMSIS .. COMPLETE CHG BATH WITH LINEN CHANGE DONE WITH ASSIST FROM NIGHT NURSE HANNA.. PT IS AWAKE AND ALERT .. WRIST RESTRAINTS REMOVED AT THIS TIME.. PT IS AAO AND STATES THAT HE WILL NOT PULL AT TUBES AND WIRES.. 0800 BNREAKFAST HELD THIS AM DUE TO RECENT NAUSEA AND VOMITING.. LAB IN TO DRAW AM LABS.. 0815 Melissa [facility] NURSE PRACTITIONER ORTHO IN TO SEE PT UPDATE IS GIVEN...
[2019-05-30 08:32] LABS: ANION GAP 15.5 mmol/L (8-16); CALCIUM 9.1 mg/dL (8.5-10.1); CARBON DIOXIDE 27.6 mmol/L (21.0-32.0); CREATININE - SERUM 5.4 mg/dL (0.6-1.3); PHOSPHOROUS 4.6 mg/dL (2.5-4.9); POTASSIUM - SERUM 4.1 mmol/L (3.5-5.1); VANCOMYCIN - RANDOM 17.9 ug/mL (10.0-20.0)
--- NOTE | 2019-05-30 09:41 | NUR ---
LLE HAS MULTIPLE OPEN WOUNDS AND BLISTERS. THERE IS THICK PINKISH EXUDATE NOTED FROM SEVERAL OF THE WOUNDS. SLIGHT ODOR IS NOTED. CLEANSED LEG WITH BETADINE AND COVERED WOUNDS WITH BETADINE SOAKED ADAPTIC. COVERED THE ADAPTIC WITH DRY 4X4S AND SECURED WITH KERLIX. COCCYX HAS A STAGE 3 PRESSURE INJURY MEASURING 2CM X 2CM X 0.5CM. NO DRAINAGE OR ODOR IS NOTED. MEPILEX SACRAL DRESSING IS BEING APPLIED AND CHANGED Q 3 DAYS AND NEEDED IF SOILED. PT IS ON AN AIR OVERLAY MATTRESS. HE IS ABLE TO TURN/REPOSITION HIMSELF WITH REMINDERS. WOUND CARE WILL CONTINUE MONITORING.
--- NOTE | 2019-05-30 12:23 | NUR ---
0900 CARRIE WITH WOUND CARE IN TO SEE PT DRESSING CHANGES TO LEGS DONE AT THIS TIME BY HER.. 1100 PT IS SOMEWHAT MORE CONFUSED AT THIS TIME.. PT IN TO SIT PATIENT ON SIDE OF BED.. PT C/O PAIN ... SPITTING THICK BROWN EXUDATE FROM MOUTH.. PERCOCET GIVEN.. 1130 MORE RESTFUL AT THIS TIME.. 1200 SISTER IN TO SEE PT.. ASSISTING PATIENT WITH LUNCH .. PT IS CONVERSING WITH HER AND IS CALM AT THIS TIME..
--- NOTE | 2019-05-30 13:52 | NUR ---
1245 15% LUNCH EATEN.. SISTER GONE FROM BEDSIDE.. 1330 INFECTION CONTROL CALLED TO INFORM THAT PATIENT IS NOW IN CONTACT ISO FOR esbl... 1350 MATTY SPEECH PATH IN TO SEE PT..
--- NOTE | 2019-05-30 16:59 | NUR ---
1600 DR DAVIDSON IN TO SEE PT... RENAL... UPDATE GIVEN.. AFTER DR LEFT PT BEDSIDE PT BEGAN VOMITING DARK COFFEE GROUND APPEARING EMSIS INTO BASIN.. 1615 ZOFRAN GIVEN IVP PER Jun AND DR STILL IN UNIT INFORMED.. DR PLACED ORDERS 1630 BATH WITH LINEN CHANGE DONE.. NOTED AT THIS TIME THAT DRESSING ON LEFT LEG IS WITH BLOODY PUS LIKE DRAINAGE DRESSING IS REINFORCED 164 LAB IN TO DRAW CBC ORDERED BY . LIGHT OUT AND PT IS RESTING QUIETLY WITH EYES CLOSED.. CONTINUES WITHOUT RESTRAINTS
[2019-05-30 17:03] LABS: BASOPHILS 0.1 % (0-2); EOSINOPHILS 0.4 % (0-7); HEMATOCRIT 25.5 % (42.0-54.0); LYMPHOCYTES 6.4 % (15-50); MCH 27.3 pg (26.0-34.0); MCHC 31.4 g/dL (31.0-37.0); MEAN PLATELET VOLUME 10.5 fL (7.4-10.4); MONOCYTES 11.2 % (2-11); NEUTROPHILS 80.9 % (40-80); PLATELET COUNT 117 10x3/uL (130-400); RBC 2.93 10x6/uL (4.20-6.10); RDW 19.2 % (11.5-14.5); WBC 11.2 10x3/uL (4.8-10.8)
--- NOTE | 2019-05-30 19:00 | NUR ---
PT AWAKE AND ALERT. CONFUSED, FOLLOWS COMMANDS. BLIND, PUPILS FIXED. UNLABORED RESPIRATIONS, LUNG SOUNDS CLEAR/DIMINISHED. AFIB ON MONITOR, PULSES PRESENT. BOWEL SOUNDS ACTIVE IN ALL QUADRANTS, NAUSEA PRESENT. LT ARM FISTULA WITH DRSG CDI. RT BKA, SORE TO LT LEG- DRSG INTACT. NO C/O PAIN AT THIS TIME. VSS. DENIES NEEDS. REPOSITIONED, PROMINENCES BRIDGED. ROOM VISIBLE FROM NURSES STATION. CPOC.
--- NOTE | 2019-05-30 20:00 | NUR ---
HS MEDS GIVEN, ONE TIME DOSE OF PHENERGAN PROVIDED FOR NAUSEA. REPOSITIONED FOR COMFORT. VSS, CPOC.
--- NOTE | 2019-05-30 23:00 | NUR ---
REASSESSMENT COMPLETE, NO NEW CHANGES AT THIS TIME. PT REPOSITIONED, RESTING COMFORTABLY WITH NO C/O PAIN. VSS. ROOM VISIBLE FROM NURSES STATION. CPOC.
[2019-05-31] VITALS (23 sets, daily range): BP systolic 92–153; BP diastolic 48–79
--- NOTE | 2019-05-31 01:00 | NUR ---
PT RESTING QUIETLY WITH UNLABORED RESPIRATIONS. NO S/S OF PAIN OR ACUTE DISTRESS. VSS, ROOM VISIBLE FROM NURSES STATION. CPOC.
--- NOTE | 2019-05-31 02:37 | NUR ---
PT REPOSITIONED FOR COMFORT, PARTIAL LINEN CHANGE PROVIDED.
--- NOTE | 2019-05-31 04:00 | NUR ---
CHG BATH AND COMPLETE LINEN CHANGE PROVIDED. PROMINENCES BRIDGED. VSS.
--- NOTE | 2019-05-31 05:00 | NUR ---
ORAL CARE PROVIDED. PT REPOSITIONED FOR COMFORT. DENIES FURTHER NEEDS. VSS, CPOC.
--- NOTE | 2019-05-31 07:00 | NUR ---
PT RESTING IN BED, VSS AND WNL. NO SIGNS OF DISTRESS NOTED. BED ALARM ON. CALL LIGHT WITHIN REACH. SHIFT ASSESSMENT PERFORMED. WILL CONT TO FOLLOW POC
[2019-05-31 07:50] LABS: ALBUMIN 3.2 g/dL (3.4-5.0); BILIRUBIN - TOTAL 1.42 mg/dL (0.2-1.3); CALCIUM 9.2 mg/dL (8.5-10.1); CARBON DIOXIDE 25.5 mmol/L (21.0-32.0); CREATININE - SERUM 6.5 mg/dL (0.6-1.3); VANCOMYCIN - RANDOM 24.3 ug/mL (10.0-20.0)
[2019-05-31 07:55] LABS: HEMATOCRIT 28.7 % (42.0-54.0); HEMOGLOBIN 8.6 g/dL (13.5-17.5); LYMPHOCYTES 8.2 % (15-50); MCH 27.1 pg (26.0-34.0); NEUTROPHILS 81.6 % (40-80); RBC 3.17 10x6/uL (4.20-6.10); RDW 19.4 % (11.5-14.5)
[2019-05-31 07:57] LABS: MCV 90.5 fL (80.0-100.0); PLATELET COUNT 145 10x3/uL (130-400); WBC 7.8 10x3/uL (4.8-10.8)
[2019-05-31 08:05] LABS: ANION GAP 22.6 mmol/L (8-16); POTASSIUM - SERUM 5.1 mmol/L (3.5-5.1)
--- NOTE | 2019-05-31 08:30 | NUR ---
CHECKED ON PT AND NOTICIED PT HAD PULLED HIS IV OUT AND IT WAS LAYING ON THE BED, CATHETER TIP WAS INTACT. PT COMPLAINING OF BURNING TO REMAINING PIV. UPON ASSESSMENT, PIV HAD INFILTRATED. PIV WAS REMOVED WITH CATHETER TIP INTACT. ATTEMPTED PIV INSERTION X2 AND FAILED. 2 OTHER NURSES ALSO ATTEMPTED PIV INSERTION AND FAILED. PAGED . WILL CONT TO FOLLOW POC
--- NOTE | 2019-05-31 09:03 | NUR ---
Nutrition follow-up: Pt awake, laying in bed Diet: Renal PO intake ~25% of 1 meal 05/30/19 Labs reviewed Megace started PO intake continues to be poor; may need to consider PEG tube placement with nutrition support 2/2 poor po intake with increased nutrient needs. RDN following.
--- NOTE | 2019-05-31 10:19 | NUR ---
PT RECIEVING DIALYSIS AT BEDSIDE. NO SIGNS OF DISTRESS NOTED. BED ALARM ON. DENIES ANY NEEDS AT THIS TIME, WILL CONT TO FOLLOW POC
--- NOTE | 2019-05-31 10:30 | NUR ---
CALLED BACK REGARDING NO IV ACCESS. NEW ORDERS RECIEVED TO CONSULT SURGERY FOR CVL PLACEMENT. PLACED CONSULT ORDERED. PT STILL RECIEVING BEDSIDE DIALYSIS. NO SIGNS OF DISTRESS NOTED. WILL CONT TO FOLLOW POC
[2019-05-31 12:19] LABS: AMYLASE - SERUM 45 U/L (25-115); LIPASE 65 U/L (73-393)
--- NOTE | 2019-05-31 13:33 | NUR ---
PAGED BACK AND STATES HE WILL NOT PUT IN A CENTRAL LINE UNLESS PT IS ONE ON ONE, PAGED BABS, VASCULAR ACCESS AND SHE WAS ABLE TO PLACE A 20G IN PT RIGHT UPPER ARM WITH ULTRASOUND. PRONIX GTT RECONNECTED TO PIV. PT RESTING IN BED, VSS AND WNL, DENIES ANY NEEDS AT THIS TIME, WILL CONT TO FOLLOW POC
--- NOTE | 2019-05-31 14:42 | NUR ---
NOTIFIED CARDIOLOGY THAT PT HR IS 130-160 AFIB. NEW ORDERS RECIEVED AND ENTERED IN EMAR. WILL CONT TO FOLLOW POC
--- NOTE | 2019-05-31 17:00 | NUR ---
CHG BATH PROVIDED WITH FULL LINEN CHANGE PROVIDED. WOUND CARE PERFORMED TO BLE. PT TOLERATED WELL. NO SIGNS OF DISTRESS NOTED AT THIS TIME, BED ALARM ON. CALL LIGHT WITHIN REACH, WILL CONT TO FOLLOW POC
--- NOTE | 2019-05-31 23:20 | NUR ---
PT INCONTINENT OF STOOL, COMPLETE CHG BATH AND LINEN CHANGE PROVIDED. PROMINENCES BRIDGED. VSS, DENIES FURTHER NEEDS. ROOM VISIBLE FROM NURSES STATION. CPOC.
[2019-06-01] VITALS (16 sets, daily range): BP systolic 83–161; BP diastolic 38–76
--- NOTE | 2019-06-01 01:00 | NUR ---
RESTING QUIETLY WITH VSS, NO C/O PAIN. REPOSITIONED WITH PROMINENCES BRIDGED. ROOM VISIBLE FROM NURSES STATION. CPOC.
--- NOTE | 2019-06-01 07:15 | NUR ---
REPORT RECEIVED. PT ON CONTACT ISOLATION FOR ESBL IN HIS LEG. HE HAS A RIGHT BKA. HE IS BLIND. HE HAS AN IV TO HIS RIGHT UPPER ARM WITH PROTONIX, CARDIZEM, AND NS AT [facility]. HE IS A RESERVE LEFT ARM AND GETS DIALYSIS MWF. DR HERNANDEZ ORDERED VANC. MAKES PT NAUSEATED. WILL PREMEDICATE WITH PHENERGAN BEFORE STARTING VANC. VSS. WILL CONTINUE TO MONITOR.
--- NOTE | 2019-06-01 08:55 | NUR ---
PT SITTING UP IN BED DRINKING NEPRO. STATED HE DIDN'T WANT THE OTHER BREAKFAST FOOD. MERREM INFUSING AT THIS TIME. WILL CONTINUE TO MONITOR.
[2019-06-01 09:12] LABS: BASOPHILS 0.1 % (0-2); EOSINOPHILS 0.4 % (0-7); HEMATOCRIT 26.3 % (42.0-54.0); IMMATURE GRANULOCYTES 0.5 % (0-5); LYMPHOCYTES 8.4 % (15-50); MCH 26.9 pg (26.0-34.0); MCHC 30.4 g/dL (31.0-37.0); MCV 88.6 fL (80.0-100.0); MEAN PLATELET VOLUME 9.9 fL (7.4-10.4); MONOCYTES 9.2 % (2-11); NEUTROPHILS 81.4 % (40-80); PLATELET COUNT 160 10x3/uL (130-400); RBC 2.97 10x6/uL (4.20-6.10)
--- NOTE | 2019-06-01 09:30 | NUR ---
EAN COUCH CARDIOLOGY, IN WITH PT. SPOKE WITH PT REGARDING PROGNOSIS. PT STATES THAT HE WANTS TO BE A DO NOT INTUBATE, BUT CONTINUE WITH MEDICATIONS. STATED HE WANTED TO SPEAK WITH HIS FAMILY 1ST BEFORE MAKING FINAL DECISIONS. WILL CONTINUE TO MONITOR.
[2019-06-01 09:37] LABS: ALBUMIN 3.1 g/dL (3.4-5.0); ANION GAP 18.6 mmol/L (8-16); BILIRUBIN - TOTAL 1.56 mg/dL (0.2-1.3); CALCIUM 8.7 mg/dL (8.5-10.1); CARBON DIOXIDE 27.2 mmol/L (21.0-32.0); CREATININE - SERUM 5.5 mg/dL (0.6-1.3); POTASSIUM - SERUM 4.8 mmol/L (3.5-5.1); PROTEIN - SERUM 6.3 g/dL (6.4-8.2)
--- NOTE | 2019-06-01 11:30 | NUR ---
PT RESTING QUIETLY. VSS. WILL CONTINUE TO MONITOR.
--- NOTE | 2019-06-01 13:15 | NUR ---
PT RESTING QUIETLY. VSS. REPOSITIONED. WILL CONTINUE TO MONITOR.
--- NOTE | 2019-06-01 15:45 | NUR ---
PT RESTING QUIETLY. VSS. WILL CONTINUE TO MONITOR.
--- NOTE | 2019-06-01 18:47 | MORECARE ---
CASE MANAGEMENT DISCHARGE SUMMARY PATIENT: PABLO CUNHA UNIT: [id number] ADM DATE: 05/18/19 AGE: 59 : 58 SEX: M ROOM/BED: D.2301 AUTHOR: MCIA,DOC PHYSICIAN: REFERRING PHYSICIAN: SABRA COLLINS MD DATE OF SERVICE: 06/01/19 Discharge Plan Patient Name: PABLO CUNHA Facility: [facility]:[place] : 1960 Planned Disposition: Home Anticipated Discharge Date: 05/22/19 Discharge Date: Expected LOS: 4 Initial Reviewer: [email or web address] Initial Review Date: 05/18/2019 Generated: 06/01/19 7:46 pm Comments DCP- Discharge Planning Updated by [email or web address]: Josi Vickers on 06/01/19 5:[address] Late Entry 05/31/19 CM spoke with patient's sister Saman Estes regarding discharge planning. Saman stated that they was planning on the patient going to inpatient rehab upon discharge. CM explained that patient only has Medicaid and that Medicaid doesn't cover rehab. CM spoke to sister about that patient could possibly go into [facility] for a period of time if needed. Saman stated that she would discuss this with the rest of her siblings to make a decision. CM gave Saman KALA's contact information if needed. CM will continue to follow and assist as needed with discharge planning/ needs. DCP- Discharge Planning Updated by [id number]: Johanna Flores on 05/21/19 2:[address] CM SPENT 40 MINUTES TALKING WITH 2 OF THE PATIENT'S SISTERS AND ONE BROTHER. THEY ARE CONCERNED ABOUT HIS DECISION MAKING ABILITY. HE DOES NOT WISH TO HAVE AN AMPUTATION. HE HAS SOME DEGREE OF [id number]. THEY HAD QUESTIONS ABOUT POA, TRANSFERING HIM TO [place], [place], MEDICAID COVERAGE, HIS TREAMENT PLAN. THEY HAVE SPOKEN TO EAN GRANADOS, DR LOPEZ, DR HERNANDEZ AND THE ORTHO MD. THEY ARE EXTREMELY CONCERNED. THEY HAVE SPOKEN W/ HIS CHILDREN WHO REPORTEDLY DO NOT UNDERSTAND HOW SICK HE IS. HIS CHILDREN LIVE OUT OF STATE. I PROVIDED TWO CONTACT NUMBERS FOR MEDICAID FOR THEIR QUESTIONS. I REVIEWED THE PLAN FOR THE NEXT 24 HRS. I SUGGESTED THEY CALL HIS HD UNIT TO SEE IF HE HAS A POA ON RECORD. HIS SISTER, SAMAN ESTES, IS THE PRIMARY AUTO ADJUDICATION SPECIALIST AND WHO THE PATIENT LISTED FOR EMERGENCY CONTACT. SHE WAS THE PRIMARY PERSON ASKING QUESTIONS AND TAKING NOTES. THEY WISH TO SPEAK WITH DR COLLINS. SAMAN ESTES- . DCP- Discharge Planning Updated by [email or web address]: Telma Ramsey on 05/18/19 5:[address] DC PLAN: Return home alone. ANTICIPATED DC NEEDS: denied known dc needs at time of assessment in the ER. CM met with patient to complete initial dc planning assessment. CM educated patient on the CM role and verbal consent given by patient to complete assessment. CM verified patient's address, phone number, and emergency contact phone numbers. Patient lives at home alone and reports he is independent in his care. He goes to via scat transport to and from. He reports he also goes to the wound clinic for his R ankle. He reports he is currently taking po vancomycin and IV Vanco at HD. At discharge patient plans to return home and feels this is a safe discharge. CM discussed availability of home health, rehab services, and medical equipment. Patient denied known discharge needs at this time. Transportation provider at discharge will be an ambulance. CM will continue to follow and will assist as needed with dc plans/needs. Telma Ramsey RN, [facility] DCPIA - Discharge Planning Initial Assessment Updated by [email or web address]: Telma Ramsey on 05/18/19 6:16 pm * Is the patient Alert and Oriented? Yes * PCP Dr. Collins * Pharmacy [facility] in [place] * Preadmission Environment Home Alone * ADLs Independent * Equipment Bedside Commode Cane Rolling Walker Wheelchair * List name and contact numbers for known caregivers / representatives who currently or will assist patient after discharge: Saman Estes - sister - [phone] * Verbal permission to speak to the caregivers and representatives has been obtained from the patient. Yes * Community resources currently utilized None * Please name any agencies selected above. Hemodialysis at [facility] transportation * Additional services required to return to the preadmission environment? No * Can the patient safely return to the preadmission environment? Yes * Has this patient been hospitalized within the prior 30 days at any hospital? Yes Last DP export: 05/21/19 2:08 pm Patient Name: PABLO CUNHA Page [id number] at 1847 All edits/amendments must be made on the electronic document DICTATION DATE: 06/01/191845 CLOCK MAKER: SUELLEN 06/01/191845 RPT#: [id number] DC DATE: STATUS: ADM IN [facility] [address] [place] [address] END OF REPORT
--- NOTE | 2019-06-01 19:00 | NUR ---
REPORT RECEIVED. PT DISORIENTED TO TIME, PLACE, SITUAION. ASSESSMENT COMPLETE, SEE FLOWSHEET. WILL CONTINUE TO MONITOR.
--- NOTE | 2019-06-01 19:00 | MORECARE ---
CASE MANAGEMENT DISCHARGE SUMMARY PATIENT: PABLO DINERO UNIT: [id number] ADM DATE: 05/18/19 AGE: 59 : 58 SEX: M ROOM/BED: D.2301 AUTHOR: MICA,DOC PHYSICIAN: REFERRING PHYSICIAN: SABRA COLLINS MD DATE OF SERVICE: 06/01/19 Discharge Plan Patient Name: PABLO DINERO Facility: [facility]:[place] : 1960 Planned Disposition: Home Anticipated Discharge Date: 05/22/19 Discharge Date: Expected LOS: 4 Initial Reviewer: [email or web address] Initial Review Date: 05/18/2019 Generated: 06/01/19 7:59 pm Comments DCP- Discharge Planning Updated by [email or web address]: Josi Vickers on 06/01/19 5:[address] CM received a call from patient's brother Torres Dinero [phone]. Torres was concerned about patient being discharged to early. CM explained that we are just trying to get a plan initiated since he will not be able to go home alone and Medicaid not paying for rehab. He asked when this would happen CM explained that it depends on how the patient progresses. CM that we have therapy seeing patient while he is in hospital. CM answered all questions. CM will continue to follow and assist as needed with discharge planning / needs. DCP- Discharge Planning Updated by [email or web address]: Josi Vickers on 06/01/19 5:[address] Late Entry 05/31/19 CM spoke with patient's sister Saman Estes regarding discharge planning. Saman stated that they was planning on the patient going to inpatient rehab upon discharge. CM explained that patient only has Medicaid and that Medicaid doesn't cover rehab. CM spoke to sister about that patient could possibly go into correction care for a period of time if needed. Saman stated that she would discuss this with the rest of her siblings to make a decision. CM gave Saman CM's contact information if needed. CM will continue to follow and assist as needed with discharge planning/ needs. DCP- Discharge Planning Updated by [id number]: Johanna Flores on 05/21/19 2:[address] CM SPENT 40 MINUTES TALKING WITH 2 OF THE PATIENT'S SISTERS AND ONE BROTHER. THEY ARE CONCERNED ABOUT HIS DECISION MAKING ABILITY. HE DOES NOT WISH TO HAVE AN AMPUTATION. HE HAS SOME DEGREE OF [id number]. THEY HAD QUESTIONS ABOUT POA, TRANSFERING HIM TO [place], [place], MEDICAID COVERAGE, HIS TREAMENT PLAN. THEY HAVE SPOKEN TO EAN GRANADOS, DR LOPEZ, DR HERNANDEZ AND THE ORTHO MD. THEY ARE EXTREMELY CONCERNED. THEY HAVE SPOKEN W/ HIS CHILDREN WHO REPORTEDLY DO NOT UNDERSTAND HOW SICK HE IS. HIS CHILDREN LIVE OUT OF STATE. I PROVIDED TWO CONTACT NUMBERS FOR MEDICAID FOR THEIR QUESTIONS. I REVIEWED THE PLAN FOR THE NEXT 24 HRS. I SUGGESTED THEY CALL HIS HD UNIT TO SEE IF HE HAS A POA ON RECORD. HIS SISTER, SAMAN ESTES, IS THE PRIMARY BUILDING PRESSURE WASHER AND WHO THE PATIENT LISTED FOR EMERGENCY CONTACT. SHE WAS THE PRIMARY PERSON ASKING QUESTIONS AND TAKING NOTES. THEY WISH TO SPEAK WITH DR COLLINS. SAMAN ESTES- . DCP- Discharge Planning Updated by [email or web address]: Telma Ramsey on 05/18/19 5:[address] DC PLAN: Return home alone. ANTICIPATED DC NEEDS: denied known dc needs at time of assessment in the ER. CM met with patient to complete initial dc planning assessment. CM educated patient on the CM role and verbal consent given by patient to complete assessment. CM verified patient's address, phone number, and emergency contact phone numbers. Patient lives at home alone and reports he is independent in his care. He goes to - via scat transport to and from. He reports he also goes to the wound clinic for his R ankle. He reports he is currently taking po vancomycin and IV Vanco at . At discharge patient plans to return home and feels this is a safe discharge. CM discussed availability of home health, rehab services, and medical equipment. Patient denied known discharge needs at this time. Transportation provider at discharge will be an ambulance. CM will continue to follow and will assist as needed with dc plans/needs. Telma Ramsey RN, [facility] DCPIA - Discharge Planning Initial Assessment Updated by [email or web address]: Telma Ramsey on 05/18/19 6:16 pm * Is the patient Alert and Oriented? Yes * PCP Dr. Collins * Pharmacy [facility] in [place] * Preadmission Environment Home Alone * ADLs Independent * Equipment Bedside Commode Cane Rolling Walker Wheelchair * List name and contact numbers for known caregivers / representatives who currently or will assist patient after discharge: Saman Estes - [facility] - [phone] * Verbal permission to speak to the caregivers and representatives has been obtained from the patient. Yes * Community resources currently utilized None * Please name any agencies selected above. Hemodialysis at [facility]-- [facility] transportation * Additional services required to return to the preadmission environment? No * Can the patient safely return to the preadmission environment? Yes * Has this patient been hospitalized within the prior 30 days at any hospital? Yes Last DP export: 06/01/19 5:47 p Patient Name: PABLO DINERO Page [id number] at 1900 All edits/amendments must be made on the electronic document DICTATION DATE: 06/01/191858 ELEMENTARY SCHOOL MUSIC TEACHER: SUELLEN 06/01/191858 RPT#: [id number] DC DATE: STATUS: ADM IN [facility] [address] [place] [address] END OF REPORT
--- NOTE | 2019-06-01 20:24 | NUR ---
DR. JIMENEZ NOTIFIED OF BRADYCARDIA AND CARDIZEM STOPPED NO FURTHER ORDERS AT THIS TIME.
--- NOTE | 2019-06-01 21:00 | NUR ---
TOLERATED PM MEDS WELL. WILL CONTINUE TO MONITOR.
--- NOTE | 2019-06-01 23:00 | NUR ---
PT DISORIENTED TO TIME, SITUATION. PT CONFUSED AND DOES NOT RESPOND CLEARLY TO QUESTIONS ASKED. WILL CONTINUE TO MONITOR.
[2019-06-02] VITALS (20 sets, daily range): BP systolic 110–150; BP diastolic 43–72
--- NOTE | 2019-06-02 01:00 | NUR ---
PT RESTING QUIETLY. NO ACUTE DISTRESS NOTED.
--- NOTE | 2019-06-02 03:00 | NUR ---
PT DISORIENTED TO SITUATION, TIME. PT REMOVING BLOOD PRESSURE CUFF CONTINUOUSLY. REORIENTED NEEDED.
--- NOTE | 2019-06-02 05:00 | NUR ---
PT RESTING IN BED, NO ACUTE DISTRESS NOTED.
--- NOTE | 2019-06-02 08:14 | NUR ---
BLOODY DRAINAGE TO BKA DSNG. ASSISTED WITH MEAL TRAY. PT REFUSING TO EAT. DID DRINK FEW SIPS OF NEPRO. LINENS CHANGED. WILL CHANGE DSNG.
--- NOTE | 2019-06-02 09:18 | NUR ---
Nutrition follow-up: Pt receiving a renal diet; however, po intake continues to be poor. Drinking some Nepro per nursing. Labs reviewed Possible surgery soon Recommend NGT placed and Nepro started @ 25 ml/hr with increase to goal rate of 40 ml/hr RDN following.
[2019-06-02 09:41] LABS: BASOPHILS 0.1 % (0-2); EOSINOPHILS 0.6 % (0-7); HEMATOCRIT 26.3 % (42.0-54.0); IMMATURE GRANULOCYTES 1.3 % (0-5); LYMPHOCYTES 9.5 % (15-50); MCH 26.7 pg (26.0-34.0); MCHC 30.4 g/dL (31.0-37.0); MCV 87.7 fL (80.0-100.0); MEAN PLATELET VOLUME 10.2 fL (7.4-10.4); MONOCYTES 8.7 % (2-11); NEUTROPHILS 79.8 % (40-80); PLATELET COUNT 190 10x3/uL (130-400); RDW 18.7 % (11.5-14.5); WBC 13.4 10x3/uL (4.8-10.8)
[2019-06-02 09:54] LABS: ANION GAP 18.2 mmol/L (8-16); CALCIUM 8.9 mg/dL (8.5-10.1); CARBON DIOXIDE 27.1 mmol/L (21.0-32.0); CREATININE - SERUM 6.7 mg/dL (0.6-1.3); PHOSPHOROUS 6.8 mg/dL (2.5-4.9); POTASSIUM - SERUM 5.3 mmol/L (3.5-5.1); VANCOMYCIN - RANDOM 26.7 ug/mL (10.0-20.0)
--- NOTE | 2019-06-02 10:40 | NUR ---
BATH AND LINENS CHANGED. PT INC OF STOOL. DSNG CHANGED TO BLE ORDERED. PT SOHAM WELL. MEPILES APPLIED TO COCCYS STAGE 2 PRESSURE ULCER.
--- NOTE | 2019-06-02 15:29 | NUR ---
DR TORRES SPOKE TO 3 FAMILY MEMBERS AT . DISCUSSED CODE STATUS. FAMILY REPORTS THAT HE IS STILL A FULL CODE.
--- NOTE | 2019-06-02 15:30 | MORECARE ---
CASE MANAGEMENT DISCHARGE SUMMARY PATIENT: PABLO DINERO UNIT: [id number] ADM DATE: 05/18/19 AGE: 59 : 58 SEX: M ROOM/BED: D.2301 AUTHOR: MICA,DOC PHYSICIAN: REFERRING PHYSICIAN: SABRA COLLINS MD DATE OF SERVICE: 06/02/19 Discharge Plan Patient Name: PABLO DINERO Facility: [facility]:[place] : 1960 Planned Disposition: Home Anticipated Discharge Date: 05/22/19 Discharge Date: Expected LOS: 4 Initial Reviewer: [email or web address] Initial Review Date: 05/18/2019 Generated: 06/02/19 4:29 pm Comments DCP- Discharge Planning Updated by [id number]: Josi Vickers on 06/02/19 2:[address] Cheng here and spoke with patient and family regarding code status and patient prognosis. explained that patient is in end stage with his cancer and unable to get chemo d/t infection and overall well being. Family at this time wish to continue keep patient a full code. DCP- Discharge Planning Updated by [id number]: Josi Vickers on 06/01/19 5:[address] CM received a call from patient's brother Torres Dinero [phone]. Torres was concerned about patient being discharged to early. CM explained that we are just trying to get a plan initiated since he will not be able to go home alone and Medicaid not paying for rehab. He asked when this would happen CM explained that it depends on how the patient progresses. CM that we have therapy seeing patient while he is in hospital. CM answered all questions. CM will continue to follow and assist as needed with discharge planning / needs. DCP- Discharge Planning Updated by [email or web address]: Josi Vickers on 06/01/19 5:[address] Late Entry 05/31/19 CM spoke with patient's sister Saman Estes regarding discharge planning. Saman stated that they was planning on the patient going to inpatient rehab upon discharge. CM explained that patient only has Medicaid and that Medicaid doesn't cover rehab. CM spoke to sister about that patient could possibly go into penitentiary care for a period of time if needed. Saman stated that she would discuss this with the rest of her siblings to make a decision. CM gave Saman ARMENDARIZ's contact information if needed. CM will continue to follow and assist as needed with discharge planning/ needs. DCP- Discharge Planning Updated by [email or web address]: Johanna Flores on 05/21/19 2:[address] CM SPENT 40 MINUTES TALKING WITH 2 OF THE PATIENT'S SISTERS AND ONE BROTHER. THEY ARE CONCERNED ABOUT HIS DECISION MAKING ABILITY. HE DOES NOT WISH TO HAVE AN AMPUTATION. HE HAS SOME DEGREE OF [id number]. THEY HAD QUESTIONS ABOUT POA, TRANSFERING HIM TO [place], [place], MEDICAID COVERAGE, HIS TREAMENT PLAN. THEY HAVE SPOKEN TO EAN GRANADOS, DR LOPEZ, DR HERNANDEZ AND THE ORTHO MD. THEY ARE EXTREMELY CONCERNED. THEY HAVE SPOKEN W/ HIS CHILDREN WHO REPORTEDLY DO NOT UNDERSTAND HOW SICK HE IS. HIS CHILDREN LIVE OUT OF STATE. I PROVIDED TWO CONTACT NUMBERS FOR MEDICAID FOR THEIR QUESTIONS. I REVIEWED THE PLAN FOR THE NEXT 24 HRS. I SUGGESTED THEY CALL HIS HD UNIT TO SEE IF HE HAS A POA ON RECORD. HIS SISTER, SAMAN ESTES, IS THE PRIMARY PATIENT NAVIGATOR AND WHO THE PATIENT LISTED FOR EMERGENCY CONTACT. SHE WAS THE PRIMARY PERSON ASKING QUESTIONS AND TAKING NOTES. THEY WISH TO SPEAK WITH DR COLLINS. SAMAN ESTES- . DCP- Discharge Planning Updated by [email or web address]: Telma Ramsey on 05/18/19 5:[address] DC PLAN: Return home alone. ANTICIPATED DC NEEDS: denied known dc needs at time of assessment in the ER. CM met with patient to complete initial dc planning assessment. CM educated patient on the CM role and verbal consent given by patient to complete assessment. CM verified patient's address, phone number, and emergency contact phone numbers. Patient lives at home alone and reports he is independent in his care. He goes to via scat transport to and from. He reports he also goes to the wound clinic for his R ankle. He reports he is currently taking po vancomycin and IV Vanco at . At discharge patient plans to return home and feels this is a safe discharge. CM discussed availability of home health, rehab services, and medical equipment. Patient denied known discharge needs at this time. Transportation provider at discharge will be an ambulance. CM will continue to follow and will assist as needed with dc plans/needs. Telma Ramsey RN, [facility] DCPIA - Discharge Planning Initial Assessment Updated by [email or web address]: Telma Ramsey on 05/18/19 6:16 pm * Is the patient Alert and Oriented? Yes * PCP Dr. Collins * Pharmacy [facility] in [place] * Preadmission Environment Home Alone * ADLs Independent * Equipment Bedside Commode Cane Rolling Walker Wheelchair * List name and contact numbers for known caregivers / representatives who currently or will assist patient after discharge: Saman Estes [facility] [phone] * Verbal permission to speak to the caregivers and representatives has been obtained from the patient. Yes * Community resources currently utilized None * Please name any agencies selected above. Hemodialysis at [facility]-- [facility] transportation * Additional services required to return to the preadmission environment? No * Can the patient safely return to the preadmission environment? Yes * Has this patient been hospitalized within the prior 30 days at any hospital? Yes Last DP export: 06/01/19 6:00 p Patient Name: PABLO DINERO Page 44637 at 1530 All edits/amendments must be made on the electronic document DICTATION DATE: 06/02/191528 PALAEONTOLOGIST: SUELLEN 06/02/191528 RPT#: [id number] DC DATE: STATUS: ADM IN [facility] [address] [place] [address] END OF REPORT
--- NOTE | 2019-06-02 18:11 | NUR ---
PT TAKING BP CUFF OFF. REPLACED BP CUFF. VSS.
--- NOTE | 2019-06-02 19:00 | NUR ---
ASSESSMENT COMPLETED. BREATHING ROOM AIR. DENIES ANY NEEDS. CONFUSION CONTINUES.
--- NOTE | 2019-06-02 21:00 | NUR ---
DIALYSIS AT BEDSIDE. PT DENIES ANY NEEDS.
--- NOTE | 2019-06-02 23:00 | NUR ---
REPOSITIONED AND ORAL CARE PROVIDED.
[2019-06-03] VITALS (22 sets, daily range): BP systolic 120–148; BP diastolic 45–79
--- NOTE | 2019-06-03 03:00 | NUR ---
RE-ASSESSMENT COMPLETED. NO CHANGES SINCE LAST ASSESSMENT. REPOSITIONED
--- NOTE | 2019-06-03 05:00 | NUR ---
PATIENT ASSISTED BACK TO BED. UNSTEADY GAIT. CALL LIGHT IN REACH
--- NOTE | 2019-06-03 05:34 | NUR ---
PATIENT PULLED IV OUT WHILE TRYING TO TAKE OFF BP CUFF. ATTEMPTED TO RE-START THE IV X 3 WITHOUT SUCCESS.
--- NOTE | 2019-06-03 07:46 | NUR ---
PT AWAKE, CONFUSED TO SITUATION. PULLED IV OUT THIS AM. NO IV ACCESS. DISCUSSED COMFORT MEASURES VS CONTINUE TX. PT IS UNABLE TO TOLERATE HIS BP CUFF. TAKES BP CUFF OFF. UNABLE TO USE OTHER EXTREMITIES FOR BP AND THIS ARM. RT ARM IS SORE WELL. WILL DISCUSS WITH FAMILY.
[2019-06-03 08:53] LABS: CALCIUM 8.5 mg/dL (8.5-10.1); CARBON DIOXIDE 26.9 mmol/L (21.0-32.0); CREATININE - SERUM 5.8 mg/dL (0.6-1.3); PHOSPHOROUS 5.9 mg/dL (2.5-4.9); POTASSIUM - SERUM 4.9 mmol/L (3.5-5.1); VANCOMYCIN - RANDOM 21.2 ug/mL (10.0-20.0)
[2019-06-03 09:07] LABS: BASOPHILS 0.1 % (0-2); EOSINOPHILS 0.6 % (0-7); HEMATOCRIT 25.9 % (42.0-54.0); HEMOGLOBIN 7.9 g/dL (13.5-17.5); IMMATURE GRANULOCYTES 1.6 % (0-5); MCH 26.8 pg (26.0-34.0); MCHC 30.5 g/dL (31.0-37.0); MCV 87.8 fL (80.0-100.0); MONOCYTES 9.5 % (2-11); NEUTROPHILS 82.2 % (40-80); PLATELET COUNT 196 10x3/uL (130-400); RBC 2.95 10x6/uL (4.20-6.10); RDW 18.5 % (11.5-14.5)
--- NOTE | 2019-06-03 10:36 | NUR ---
DSNGS TO BLE BLOODY DRAINAGE NOTED. DSNGS CHANGED ORDERED. ATTEMPTING TO SITE IV TO RUE WITH OUT SUCCESS AT THIS POINT. WILL HOLD IV MEDS AND REPORT TO .
--- NOTE | 2019-06-03 12:10 | NUR ---
PT PULLING OFF ALL LEADS AND BP CUFF. STATES THAT HE WAS HOT. CONFUSED TO PLACE AND SITUATION. CM LEADS REAPPLIED.
--- NOTE | 2019-06-03 12:27 | NUR ---
REPORTED TO PHYSICIAN PRINTED CIRCUIT BOARD DESIGNER THAT I AM HOLDING MEDS DUE TO NO IV. SHAWN REPORTED THAT HE WILL TALK TO THE FAMILY TODAY. NO NEW ORDERS AT PRESENT TIME.
--- NOTE | 2019-06-03 15:30 | NUR ---
REPORTED TO DR STEPHENSON THAT IV ACCESS IS UNOBTINABLE THIS AM THIS FAR. NO NEW ORDERS REC'D AT PRESENT.
--- NOTE | 2019-06-03 16:18 | NUR ---
PTS FAMILY REPORT THAT THE YOUNGEST DAUGHTER HAS POA. CALLED TAMMY LAIRD AND SHE STATES THAT SHE DOES HAVE POA. SISI REPORTS THAT SHE DOES STILL WANT PT TO BE A FULL CODE. BLOODY DRAINAGE TO LLE DSNG. DSNG CHANGED AND ALL LINENS CHANGED. REPOSITIONED FOR COMFORT. ATTEMPTS FOR PIV UNSUCCESSFUL BY CHARGE NURSE.
--- NOTE | 2019-06-03 16:43 | NUR ---
PT PULLED OFF B/P CUFF AND MONITOR EQUIPMENT. REATTACHED ALL MONITORING EQUIPMENT.
--- NOTE | 2019-06-03 16:46 | NUR ---
REPORTED TO [facility] THAT ATTEMPTS TO SITE PIV FAILED. NO NEW ORDERS AT PRESENT TIME.
--- NOTE | 2019-06-03 17:34 | NUR ---
PT DID EAT FEW BITES OF MEAL TRAY WHEN FED. AFTER FEW BITES AND DRANK 1/2 NEPRO PT THEN REFUSED THE REST OF THE MEAL TRAY. WARM BLANKET AND FACE CLEANSED WITH WARM CLOTH. REPOSITIONED FOR COMFORT.
--- NOTE | 2019-06-03 18:44 | NUR ---
TONY HERE ON ROUNDS. FAMILY NOT IN WAITING ROOM. CALLED FAMILY AND TONY SPOKE TO DAUGHTER TAMMY AND SEVERAL FAMILY MEMBERS ABOUT OPTIONS. FAMILY SISI STATES THAT HER WISHES ARE TO CONSULT SURGERY FOR CVL PLACEMENT AND WILL GIVE CONCENT TOMORROW.
--- NOTE | 2019-06-03 19:00 | NUR ---
ASSESSMENT COMPLETED. LAYING IN BED, LETHARGIC, CONFUSED. REPOSITIONED
--- NOTE | 2019-06-03 21:00 | NUR ---
EYES CLOSED, EASILY WAKES TO NAME. REPOSITIONED. NO IV ACCESS. NEW ORDER FOR CVL PLACEMENT TOMORROW.
--- NOTE | 2019-06-03 23:00 | NUR ---
RE-ASSESSMENT COMPLETED. NO CHANGES SINCE LAST ASSESSMENT. CHG BATH GIVEN. COMPLETE LINEN CHANGE
[2019-06-04] VITALS (21 sets, daily range): BP systolic 106–137; BP diastolic 31–68
--- NOTE | 2019-06-04 01:00 | NUR ---
REPOSITIONED. DENIES ANY NEEDS. CONFUSION CONT
--- NOTE | 2019-06-04 03:00 | NUR ---
RE-ASSESSMENT COMPLETED. NO CHANGES SINCE LAST ASSESSMENT. REPOSITIONED. ORAL CARE PROVIDED
--- NOTE | 2019-06-04 05:00 | NUR ---
WOUND CARE PROVIDED TO LLE PER ORDERS. RIGTH STUMP SOILED THROUGH DRESSING, CHANGED PER ORDERS WELL. REPOSITIONED
--- NOTE | 2019-06-04 07:39 | NUR ---
SURFACE HYDROLOGIST UNABLE TO OBTAIN BLOOD DRAW THIS AM.
--- NOTE | 2019-06-04 08:40 | NUR ---
POA DAUGHTER SISI HERE IN ICU AND SHE SPOKE TO SUSIE [facility]OY [facility]NAL GROUP. SUSIE ALSO SPOKE TO FAMILY ON THE PHONE PER SISI/DAUGHTER REQUEST.NO NEW DECISIONS RE: CODE STATUS. PT IS STILL A FULL CODE PER FAMILY REQUEST. PT IS CONFUSED AND UNABLE TO MAKE CLEAR DECISIONS AT PRESENT TIME.
--- NOTE | 2019-06-04 09:27 | NUR ---
PAGED DR STEPHENSON RE: CVL PLACEMENT CONSULT. SPOKE TO PTS DAUGHTER SISI THAT IS HERE IN ICU RE: CONCENT FORM. PT STATES THAT SHE DOES NOT HAVE POA. SHE STATES THAT SHE THOUGHT SHE WAS THE POA. EXPLANED THAT CONCENT FORMS WILL BE DONE BY OLDEST CHILD.
--- NOTE | 2019-06-04 10:29 | NUR ---
DR STEPHENSON HERE IN ICU. CONSULT FOR CVL REPORTED TO DR STEPHENSON. DR STEPHENSON REPORTS THAT PT IS NOT CANIDATE FOR CVL. WILL REPORT GP.
--- NOTE | 2019-06-04 10:40 | NUR ---
TONY HERE IN ICU AND DR STEPHENSON HERE WELL DISCUSSING POC. TONY AWARE OF CVL NOT BEING PLACED.
--- NOTE | 2019-06-04 10:52 | NUR ---
TONY BACK TO JOSE TO FAMILY. NO FAMILY IN ICU AT PRESENT TIME.
[2019-06-04 11:26] LABS: BASOPHILS 0.2 % (0-2); EOSINOPHILS 0.6 % (0-7); HEMATOCRIT 29.5 % (42.0-54.0); HEMOGLOBIN 8.8 g/dL (13.5-17.5); IMMATURE GRANULOCYTES 2.7 % (0-5); LYMPHOCYTES 7.2 % (15-50); MCH 26.4 pg (26.0-34.0); MCHC 29.8 g/dL (31.0-37.0); MCV 88.6 fL (80.0-100.0); MEAN PLATELET VOLUME 10.4 fL (7.4-10.4); MONOCYTES 9.2 % (2-11); NEUTROPHILS 80.1 % (40-80); PLATELET COUNT 185 10x3/uL (130-400); RBC 3.33 10x6/uL (4.20-6.10); RDW 18.7 % (11.5-14.5); WBC 16.2 10x3/uL (4.8-10.8)
[2019-06-04 11:36] LABS: CALCIUM 8.9 mg/dL (8.5-10.1); CARBON DIOXIDE 25.5 mmol/L (21.0-32.0); CREATININE - SERUM 7.2 mg/dL (0.6-1.3); PHOSPHOROUS 7.3 mg/dL (2.5-4.9); POTASSIUM - SERUM 5.5 mmol/L (3.5-5.1)
--- NOTE | 2019-06-04 17:04 | NUR ---
FEW BITES OF MEAL TRAY FED TO PT AND HE DRANK FEW SIPS OF NEPRO AND REFUSED THE REST. FAMILY AT AND ARE GOING TO ATTEMPT TO ASST WITH FEEDING WELL.
--- NOTE | 2019-06-04 19:30 | NUR ---
REPORT RECEIVED. RECEIVED PATIENT RESTING IN BED WITH EYES CLOSED, EASILY ROUSED AND ALERT. ORIENTED TO SELF. SPEECH CLEAR. ASSESSMENT COMPLETED PER FLOW SHEET WITH NO ACUTE DISTRESS OBSERVED. MONITORS CONNECTED TO PATIENT WITH ALARMS SET. VSS. CALL LIGHT IN REACH
--- NOTE | 2019-06-04 21:30 | NUR ---
22 GAUGE PIV INITIATED RT WRIST. DRSG APPLIED, SALINE LOCKED. SOHAM WELL.
--- NOTE | 2019-06-04 23:00 | NUR ---
REASSESSMENT COMPLETED PER FLOW SHEET WITH NO ACUTE DISTRESS OBSERVED. CONTINUES CONFUSED, ORIENTED TO PERSON ONLY. REMOVING MONITORING EQUIPTMENT FREQUENTLY. VSS. TURNED AND POSITIONED FOR COMFORT. CALL LIGHT IN REACH
[2019-06-05] VITALS (24 sets, daily range): BP systolic 109–169; BP diastolic 39–108
--- NOTE | 2019-06-05 01:00 | NUR ---
RESTING WITH EYES CLOSED EASILY ROUSED AND ALERT. VSS.
--- NOTE | 2019-06-05 03:00 | NUR ---
REASSESSMENT COMPLETED PER FLOW SHEET WITH NO ACUTE DISTRESS OBSERVED. VSS.
[2019-06-05 04:54] LABS: BASOPHILS 0.1 % (0-2); EOSINOPHILS 0.8 % (0-7); HEMATOCRIT 25.3 % (42.0-54.0); HEMOGLOBIN 7.7 g/dL (13.5-17.5); IMMATURE GRANULOCYTES 3.2 % (0-5); LYMPHOCYTES 8.2 % (15-50); MCH 26.1 pg (26.0-34.0); MCHC 30.4 g/dL (31.0-37.0); MEAN PLATELET VOLUME 10.8 fL (7.4-10.4); MONOCYTES 8.3 % (2-11); NEUTROPHILS 79.4 % (40-80); PLATELET COUNT 205 10x3/uL (130-400); RBC 2.95 10x6/uL (4.20-6.10); RDW 18.7 % (11.5-14.5)
[2019-06-05 04:55] LABS: MCV 85.8 fL (80.0-100.0)
[2019-06-05 05:00] LABS: ANION GAP 22.4 mmol/L (8-16); CALCIUM 8.7 mg/dL (8.5-10.1); CARBON DIOXIDE 24.3 mmol/L (21.0-32.0); PHOSPHOROUS 7.9 mg/dL (2.5-4.9); POTASSIUM - SERUM 5.7 mmol/L (3.5-5.1)
--- NOTE | 2019-06-05 05:00 | NUR ---
CHG BATH GIVEN. DRSG CHANGE TO BLE PERFORMED . SOHAM WELL. VSS.
--- NOTE | 2019-06-05 07:15 | NUR ---
REPORT RECEIVED. PT ON CONTACT PRECAUTIONS FOR ESBL IN HIS LEG. HE HAS A RIGHT BKA. HE IS A RESERVE LEFT ARM AND HAS A FISTULA. HE GETS DIALYSIS MWF. PT IS CONFUSED. HE IS ANURIC. HE IS TO GET A CENTRAL LINE PLACED TODAY UNDER [place]. HE IS ON A 1ST STEP OVERLAY. HE IS ON ROOM AIR. PT RESTING QUIETLY. VSS. WILL CONTINUE TO MONITOR.
--- NOTE | 2019-06-05 09:11 | NUR ---
DR MARCUS ROUNDED THIS MORNING. HOLDING MERREM AM DOSE. FAMILY NOW AT BEDSIDE. VSS. WILL CONTINUE TO MONITOR.
--- NOTE | 2019-06-05 09:44 | NUR ---
Nutrition follow-up: Pt NPO for CVL placement today PO intake very poor Labs reviewed Wt: 140# Recommend PEG tube placement and nutrition support started RDNf landry.
--- NOTE | 2019-06-05 09:50 | NUR ---
PHONE CALL WITH DR MARCUS, IZA CARDIOLOGY EMERGENCY MEDICINE MEDICAL DIRECTOR, AND CADEN EMERGENCY MEDICINE MEDICAL DIRECTOR. DISCUSSED THAT DR HANNAH WOULD NOT PUT IN A NEW CENTRAL LINE WITHOUT A SITTER. HOSPITAL WON'T PROVIDE A SITTER UNLESS THE PT IS SUICIDAL. DISCUSSED WITH FAMILY WHAT YARN FINISHER SAID REGARDING THEM PAYING FOR A SITTER. ALSO DISCUSSED THAT DR COLLINS AND CADEN WOULD BE HERE TO SPEAK WITH THEM AROUND [phone]. IZA, ALSO SPOKE WITH THEM ABOUT THE INFECTION AND NEEDING LINE PLACEMENT AND SNF NEEDS OF PEG PLACEMENT AND HOW PT WOULD NOT BE ABLE TO DO CHEMO WHILE HE HAS INFECTION, PATRICE WITH IT NOT GETTING BETTER. FAMILY STATES THEY ARE WAITING TO SPEAK WITH OTHER FAMILY AND WOULD BE HERE TO SPEAK WITH DR COLLINS.
--- NOTE | 2019-06-05 11:55 | NUR ---
DR COLLINS MET WITH FAMILY TO DISCUSS PROGNOSIS AND CARE OF PT. EXPLAINED HOW SICK PT WAS AND DISCUSSED OPTIONS WITH FAMILY. FAMILY IS ADAMENT ABOUT DOING EVERYTHING FOR PT. STATED THEY WANTED TO TRANSFER TO [facility] IN [place]. DR COLLINS EXPLAINED THAT THERE WOULD HAVE TO BE AN ACCEPTING DOCTOR TO TAKE THE PT. STATED THAT WE WOULD ASK CASE MANAGEMENT TO LOOK INTO IT.
--- NOTE | 2019-06-05 13:45 | NUR ---
PT RESTING QUIETLY. WILL CONTINUE TO MONITOR.
--- NOTE | 2019-06-05 15:38 | NUR ---
ALBUMIN INFUSING TO RIGHT WRIST.
--- NOTE | 2019-06-05 16:57 | NUR ---
PT PUKED ON SELF AND LINENS. BATHED PT. LINENS CHANGED. LEADS REPLACED. WILL CONTINUE TO MONITOR.
[2019-06-06] VITALS (7 sets, daily range): BP systolic 139–179; BP diastolic 3–65
[2019-06-06 04:29] LABS: BASOPHILS 0.1 % (0-2); EOSINOPHILS 1.1 % (0-7); IMMATURE GRANULOCYTES 2.5 % (0-5); LYMPHOCYTES 7.2 % (15-50); MCH 27.2 pg (26.0-34.0); MCHC 31.7 g/dL (31.0-37.0); MCV 85.7 fL (80.0-100.0); MEAN PLATELET VOLUME 9.9 fL (7.4-10.4); MONOCYTES 6.9 % (2-11); NEUTROPHILS 82.2 % (40-80); PLATELET COUNT 185 10x3/uL (130-400); RDW 17.7 % (11.5-14.5); WBC 17.7 10x3/uL (4.8-10.8)
[2019-06-06 04:36] LABS: ANION GAP 20.5 mmol/L (8-16); CALCIUM 8.9 mg/dL (8.5-10.1); CARBON DIOXIDE 25.4 mmol/L (21.0-32.0); CREATININE - SERUM 6.6 mg/dL (0.6-1.3); HEMATOCRIT 34.7 % (42.0-54.0); PHOSPHOROUS 6.4 mg/dL (2.5-4.9); POTASSIUM - SERUM 4.9 mmol/L (3.5-5.1); RBC 4.05 10x6/uL (4.20-6.10)
--- NOTE | 2019-06-06 07:30 | NUR ---
PT HAS REFUSED ALL CARE. PT STATES HE IS DONE AND WANTS TO GO HOME. PT IS CONFUSED BUT SEEMS TO KNOW WHAT HE IS STATING AND WHAT HE WANTS.
--- NOTE | 2019-06-06 14:15 | NUR ---
TALKED WITH PT FAMILY CONCERNING HOSPICE. PT SISTER GETTING WITH PTS KIDS AND GOING TO CONTINUE TO MOVE FORWARD. PT POSITIONED FOR COMFORT. WILL CONTINUE TO MONITOR.
--- NOTE | 2019-06-06 18:48 | NUR ---
PT STILL REFUSING ALL MEDS.
[2019-06-07 03:00] VITALS: BP 170/68
[2019-06-07 04:38] LABS: BASOPHILS 0.1 % (0-2); HEMATOCRIT 37.7 % (42.0-54.0); HEMOGLOBIN 11.9 g/dL (13.5-17.5); IMMATURE GRANULOCYTES 1.4 % (0-5); MCH 27.5 pg (26.0-34.0); MCHC 31.6 g/dL (31.0-37.0); MCV 87.1 fL (80.0-100.0); MEAN PLATELET VOLUME 10.3 fL (7.4-10.4); MONOCYTES 6.3 % (2-11); NEUTROPHILS 84.2 % (40-80); PLATELET COUNT 193 10x3/uL (130-400); RBC 4.33 10x6/uL (4.20-6.10); RDW 18.1 % (11.5-14.5); WBC 19.8 10x3/uL (4.8-10.8)
[2019-06-07 04:53] LABS: CALCIUM 8.6 mg/dL (8.5-10.1); CARBON DIOXIDE 25.9 mmol/L (21.0-32.0); CREATININE - SERUM 7.7 mg/dL (0.6-1.3)
[2019-06-07 04:57] LABS: POTASSIUM - SERUM 5.9 mmol/L (3.5-5.1)
[2019-06-07 07:00] VITALS: BP 165/72
--- NOTE | 2019-06-07 07:32 | NUR ---
REPORT RECEIVED. RESERVED LEFT ARM FOR FISTULA. PT GETS DIALYSIS MWF. PT IS ANURIC. PT HAS RIGHT BKA. DRESSING CHANGED BY CLERICAL ADVISER. DRESSING TO LEFT LEG CHANGED. EAN JIMENEZ, ROUNDED. NO NEW ORDERS AT THIS TIME. WILL CONTINUE TO MONITOR.
[2019-06-07 11:00] VITALS: BP 152/78
--- NOTE | 2019-06-07 12:50 | NUR ---
ORTHO ENGAGEMENT SPECIALIST ROUNDING. NO NEW ORDERS AT THIS TIME. PT REPOSITIONED IN BED. WAS TRYING TO PULL DRESSINGS OFF BLE. ATTEMPTED TO REORIENT. ONCE REPOSITIONED, PT STOPPED PULLING AT DRESSINGS. WILL CONTINUE TO MONITOR.
--- NOTE | 2019-06-07 12:51 | NUR ---
Nutrition follow-up: Pt refusing most care per nursing. NO po intake for several days 2/2 confusion Labs reviewed Pt needs nutrition support started RDN following.
--- NOTE | 2019-06-07 14:05 | NUR ---
NEW DRESSING APPLIED TO RIGHT BKA. PT COMPLAINED OF PAIN. MORPHINE GIVEN. REPOSITIONED FOR COMFORT. WILL CONTINUE TO MONITOR.
[2019-06-07 15:00] VITALS: BP 140/78
--- NOTE | 2019-06-07 17:16 | NUR ---
CALLED DR HYMAN REGARDING CONSULT YESTERDAY 06/06/19. EXPLAINED PT'S CONDITION AND HISTORY WITH IVS/CENTRAL LINES. DR HYMAN SAID HE WOULD TRY TO GET THE PT IN THE OR TOMORROW TO GET THE CVL PLACED.
--- NOTE | 2019-06-07 17:55 | MORECARE ---
CASE MANAGEMENT DISCHARGE SUMMARY PATIENT: PABLO DINERO UNIT: [id number] ADM DATE: 05/18/19 AGE: 59 : 58 SEX: M ROOM/BED: D.2301 AUTHOR: MICA,DOC PHYSICIAN: REFERRING PHYSICIAN: SABRA COLLINS MD DATE OF SERVICE: 06/07/19 Discharge Plan Patient Name: PABLO DINERO Facility: [facility]:[place] : 1960 Planned Disposition: Home Anticipated Discharge Date: 05/22/19 Discharge Date: Expected LOS: 4 Initial Reviewer: [email or web address] Initial Review Date: 05/18/2019 Generated: 06/07/19 6:55 pm DCP- Discharge Planning Updated by [email or web address]: Josi Vickers on 06/07/19 4:[address] LATE ENTRY - 06/07/19 CM spoke with patient's sister Saman after nursing had stated that family was considering hospice. Saman stated that they was trying to get patients Medicaid transferred to [place]. KALA explained that in [place] you have to be a resident of the state to have there Medicaid. Saman asked if CM could set up transfer. KALA explained that until he has a payor contact that CM will not initiate transfer. Saman stated if they can't get him transferred then they would possibly go Hospice but they wanted him to continue dialysis. CM contacted [facility] and [facility] to see if they could do dialysis on hospice. Both companies stated that if patient is admitted to Hospice under Lymphoma diagnosis they could possibly do dialysis. KALA explained to Saman that it all depends on his admitting diagnosis as to whether they can do dialysis or not. KALA asked if she would like for CM to set up an appointment for them all to meet. Saman stated "No that she understood Hospice and it would be his children to make that decision." CM asked how many children he has she stated 3. CM will continue to follow and assist as needed with discharge planning / needs. DCP- Discharge Planning Updated by [id number]: Josi Vickers on 06/02/19 2:[address] Cheng here and spoke with patient and family regarding code status and patient prognosis. explained that patient is in end stage with his cancer and unable to get chemo d/t infection and overall well being. Family at this time wish to continue keep patient a full code. DCP- Discharge Planning Updated by [email or web address]: Josi Vickers on 06/01/19 5:[address] CM received a call from patient's brother Torres Dinero [phone]. Torres was concerned about patient being discharged to early. CM explained that we are just trying to get a plan initiated since he will not be able to go home alone and Medicaid not paying for rehab. He asked when this would happen CM explained that it depends on how the patient progresses. CM that we have therapy seeing patient while he is in hospital. CM answered all questions. CM will continue to follow and assist as needed with discharge planning / needs. DCP- Discharge Planning Updated by [id number]: Josi Vickers on 06/01/19 5:[address] Late Entry 05/31/19 CM spoke with patient's sister Saman Estes regarding discharge planning. Saman stated that they was planning on the patient going to inpatient rehab upon discharge. CM explained that patient only has Medicaid and that Medicaid doesn't cover rehab. CM spoke to sister about that patient could possibly go into terminal operator care for a period of time if needed. Saman stated that she would discuss this with the rest of her siblings to make a decision. CM gave Saman CM's contact information if needed. CM will continue to follow and assist as needed with discharge planning/ needs. DCP- Discharge Planning Updated by [id number]: Johanna Flores on 05/21/19 2:[address] CM SPENT 40 MINUTES TALKING WITH 2 OF THE PATIENT'S SISTERS AND ONE BROTHER. THEY ARE CONCERNED ABOUT HIS DECISION MAKING ABILITY. HE DOES NOT WISH TO HAVE AN AMPUTATION. HE HAS SOME DEGREE OF [id number]. THEY HAD QUESTIONS ABOUT POA, TRANSFERING HIM TO [place], [place], MEDICAID COVERAGE, HIS TREAMENT PLAN. THEY HAVE SPOKEN TO EAN GRANADOS, DR LOPEZ, DR HERNANDEZ AND THE ORTHO . THEY ARE EXTREMELY CONCERNED. THEY HAVE SPOKEN W/ HIS CHILDREN WHO REPORTEDLY DO NOT UNDERSTAND HOW SICK HE IS. HIS CHILDREN LIVE OUT OF STATE. I PROVIDED TWO CONTACT NUMBERS FOR MEDICAID FOR THEIR QUESTIONS. I REVIEWED THE PLAN FOR THE NEXT 24 HRS. I SUGGESTED THEY CALL HIS HD UNIT TO SEE IF HE HAS A POA ON RECORD. HIS SISTER, SAMAN ESTES, IS THE PRIMARY DRAPERY SEWER HAND AND WHO THE PATIENT LISTED FOR EMERGENCY CONTACT. SHE WAS THE PRIMARY PERSON ASKING QUESTIONS AND TAKING NOTES. THEY WISH TO SPEAK WITH DR COLLINS. SAMAN ESTES- . DCP- Discharge Planning Updated by [email or web address]: Telma Ramsey on 05/18/19 5:[address] DC PLAN: Return home alone. ANTICIPATED DC NEEDS: denied known dc needs at time of assessment in the ER. CM met with patient to complete initial dc planning assessment. CM educated patient on the CM role and verbal consent given by patient to complete assessment. CM verified patient's address, phone number, and emergency contact phone numbers. Patient lives at home alone and reports he is independent in his care. He goes to via scat transport to and from. He reports he also goes to the wound clinic for his R ankle. He reports he is currently taking po vancomycin and IV Vanco at HD. At discharge patient plans to return home and feels this is a safe discharge. CM discussed availability of home health, rehab services, and medical equipment. Patient denied known discharge needs at this time. Transportation provider at discharge will be an ambulance. CM will continue to follow and will assist as needed with dc plans/needs. Telma Ramsey RN, [facility] DCPIA - Discharge Planning Initial Assessment Updated by [email or web address]: Telma Ramsey on 05/18/19 6:16 pm * Is the patient Alert and Oriented? Yes * PCP Dr. Collins * Pharmacy [facility] in [place] * Preadmission Environment Home Alone * ADLs Independent * Equipment Bedside Commode Cane Rolling Walker Wheelchair * List name and contact numbers for known caregivers / representatives who currently or will assist patient after discharge: Saman Estes - sister - [phone] * Verbal permission to speak to the caregivers and representatives has been obtained from the patient. Yes * Community resources currently utilized None * Please name any agencies selected above. Hemodialysis at [facility] transportation * Additional services required to return to the preadmission environment? No * Can the patient safely return to the preadmission environment? Yes * Has this patient been hospitalized within the prior 30 days at any hospital? Yes Last DP export: 06/02/19 2:30 p Patient Name: PABLO DINERO Page [id number] at 1755 All edits/amendments must be made on the electronic document DICTATION DATE: 06/07/191754 ADVERTISING EXECUTIVE: SUELLEN 06/07/191754 RPT#: [id number] DC DATE: STATUS: ADM IN [facility] [address] [place] [address] END OF REPORT
--- NOTE | 2019-06-07 18:33 | NUR ---
TRIED TO CHANGE LINENS AND STRAIGHTEN PT UP. WHEN I ASKED THE PT IF I COULD REPOSITION HIM, THE PATIENT STATED "NO, I WOULD YOU WOULD LEAVE US ALONE." WAITED A FEW MOMENTS TO SEE IF HE'D CHANGE HIS MIND. ASKED AGAIN IF I COULD MOVE HIM AND HE SAID NO.
[2019-06-07 19:00] VITALS: BP 161/69
[2019-06-07 23:00] VITALS: BP 163/59
[2019-06-08] VITALS (8 sets, daily range): BP systolic 118–171; BP diastolic 30–72
--- NOTE | 2019-06-08 07:54 | NUR ---
DR HITCHCOCK ROUNDED ON PT. STATED THAT PT NEEDED BILATERAL AKAS. PT CONFUSED BUT AGREED WITH DR HITCHCOCK. PLAN ON SURGERY THIS WEEKEND.
--- NOTE | 2019-06-08 14:30 | NUR ---
FAMILY IN WITH PT AT THIS TIME. WILL CONTINUE TO MONITOR.
--- NOTE | 2019-06-08 17:26 | NUR ---
1500 TAKEN OFF OF PT IN DIALYSIS.
--- NOTE | 2019-06-08 18:13 | MORECARE ---
CASE MANAGEMENT DISCHARGE SUMMARY PATIENT: PABLO DINERO UNIT: [id number] ADM DATE: 05/18/19 AGE: 59 : 58 SEX: M ROOM/BED: D.2301 AUTHOR: MICADOC PHYSICIAN: REFERRING PHYSICIAN: SABRA COLLINS MD DATE OF SERVICE: 06/08/19 Discharge Plan Patient Name: PABLO DINERO Facility: [facility]:[place] : 1960 Planned Disposition: Home Anticipated Discharge Date: 05/22/19 Discharge Date: Expected LOS: 4 Initial Reviewer: [email or web address] Initial Review Date: 05/18/2019 Generated: 06/08/19 7:13 pm Comments DCP- Discharge Planning Updated by [email or web address]: Josi Vickers on 06/08/19 5:[address] CM spoke with Saman patients sister. She stated that the patient's children are to be up tomorrow to make decisions regarding hospice. CM will continue to follow and assist as needed with discharge planning / needs. DCP- Discharge Planning Updated by [id number]: Josi Vickers on 06/07/19 4:[address] LATE ENTRY - 06/07/19 CM spoke with patient's sister Saman after nursing had stated that family was considering hospice. Saman stated that they was trying to get patients Medicaid transferred to [place]. KALA explained that in [place] you have to be a resident of the state to have there Medicaid. Saman asked if CM could set up transfer. KALA explained that until he has a payor contact that CM will not initiate transfer. Saman stated if they can't get him transferred then they would possibly go Hospice but they wanted him to continue dialysis. KALA contacted [facility] and [facility] to see if they could do dialysis on hospice. Both companies stated that if patient is admitted to Hospice under Lymphoma diagnosis they could possibly do dialysis. KALA explained to Saman that it all depends on his admitting diagnosis as to whether they can do dialysis or not. KALA asked if she would like for CM to set up an appointment for them all to meet. Saman stated "No that she understood Hospice and it would be his children to make that decision." CM asked how many children he has she stated 3. CM will continue to follow and assist as needed with discharge planning / needs. DCP- Discharge Planning Updated by [email or web address]: Josi Vickers on 06/02/19 2:[address] Cheng here and spoke with patient and family regarding code status and patient prognosis. explained that patient is in end stage with his cancer and unable to get chemo d/t infection and overall well being. Family at this time wish to continue keep patient a full code. DCP- Discharge Planning Updated by [id number]: Josi Vickers on 06/01/19 5:[address] CM received a call from patient's brother Torres Dinero [phone]. Torres was concerned about patient being discharged to early. CM explained that we are just trying to get a plan initiated since he will not be able to go home alone and Medicaid not paying for rehab. He asked when this would happen CM explained that it depends on how the patient progresses. CM that we have therapy seeing patient while he is in hospital. CM answered all questions. CM will continue to follow and assist as needed with discharge planning / needs. DCP- Discharge Planning Updated by [id number]: Josi Vickers on 06/01/19 5:[address] Late Entry 05/31/19 CM spoke with patient's sister Saman Estes regarding discharge planning. Saman stated that they was planning on the patient going to inpatient rehab upon discharge. CM explained that patient only has Medicaid and that Medicaid doesn't cover rehab. CM spoke to sister about that patient could possibly go into salvage determiner care for a period of time if needed. Saman stated that she would discuss this with the rest of her siblings to make a decision. CM gave Saman CM's contact information if needed. CM will continue to follow and assist as needed with discharge planning/ needs. DCP- Discharge Planning Updated by [email or web address]: Johanna Flores on 05/21/19 2:[address] CM SPENT 40 MINUTES TALKING WITH 2 OF THE PATIENT'S SISTERS AND ONE BROTHER. THEY ARE CONCERNED ABOUT HIS DECISION MAKING ABILITY. HE DOES NOT WISH TO HAVE AN AMPUTATION. HE HAS SOME DEGREE OF [id number]. THEY HAD QUESTIONS ABOUT POA, TRANSFERING HIM TO [place], [place], MEDICAID COVERAGE, HIS TREAMENT PLAN. THEY HAVE SPOKEN TO EAN GRANADOS, DR LOPEZ, DR HERNANDEZ AND THE ORTHO MD. THEY ARE EXTREMELY CONCERNED. THEY HAVE SPOKEN W/ HIS CHILDREN WHO REPORTEDLY DO NOT UNDERSTAND HOW SICK HE IS. HIS CHILDREN LIVE OUT OF STATE. I PROVIDED TWO CONTACT NUMBERS FOR MEDICAID FOR THEIR QUESTIONS. I REVIEWED THE PLAN FOR THE NEXT 24 HRS. I SUGGESTED THEY CALL HIS HD UNIT TO SEE IF HE HAS A POA ON RECORD. HIS SISTER, SAMAN ESTES, IS THE PRIMARY JACQUARD LOOM HEDDLES TIER AND WHO THE PATIENT LISTED FOR EMERGENCY CONTACT. SHE WAS THE PRIMARY PERSON ASKING QUESTIONS AND TAKING NOTES. THEY WISH TO SPEAK WITH DR COLLINS. SAMAN ESTES- . DCP- Discharge Planning Updated by [id number]: Telma Ramsey on 05/18/19 5:[address] DC PLAN: Return home alone. ANTICIPATED DC NEEDS: denied known dc needs at time of assessment in the ER. CM met with patient to complete initial dc planning assessment. CM educated patient on the CM role and verbal consent given by patient to complete assessment. CM verified patient's address, phone number, and emergency contact phone numbers. Patient lives at home alone and reports he is independent in his care. He goes to via scat transport to and from. He reports he also goes to the wound clinic for his R ankle. He reports he is currently taking po vancomycin and IV Vanco at . At discharge patient plans to return home and feels this is a safe discharge. CM discussed availability of home health, rehab services, and medical equipment. Patient denied known discharge needs at this time. Transportation provider at discharge will be an ambulance. CM will continue to follow and will assist as needed with dc plans/needs. Telma Ramsey RN, [facility] DCPIA - Discharge Planning Initial Assessment Updated by [id number]: Telma Ramsey on 05/18/19 6:16 pm * Is the patient Alert and Oriented? Yes * PCP Dr. Collins * Pharmacy [facility] in [place] * Preadmission Environment Home Alone * ADLs Independent * Equipment Bedside Commode Cane Rolling Walker Wheelchair * List name and contact numbers for known caregivers / representatives who currently or will assist patient after discharge: Saman Estes - sister - [phone] * Verbal permission to speak to the caregivers and representatives has been obtained from the patient. Yes * Community resources currently utilized None * Please name any agencies selected above. Hemodialysis at [facility] transportation * Additional services required to return to the preadmission environment? No * Can the patient safely return to the preadmission environment? Yes * Has this patient been hospitalized within the prior 30 days at any hospital? Yes Last DP export: 06/07/19 4:55 p Patient Name: PABLO DIENRO Page [id number] at 1813 All edits/amendments must be made on the electronic document DICTATION DATE: 06/08/191812 MOVING CONSULTANT: SUELLEN 06/08/191812 RPT#: [id number] DC DATE: STATUS: ADM IN [facility] [address] [place] [address] END OF REPORT
[2019-06-09] VITALS (18 sets, daily range): BP systolic 107–158; BP diastolic 41–82
--- NOTE | 2019-06-09 06:20 | NUR ---
Nutrition follow-up: CVC placed 06/08 Pt remains NPO; for AKA Wednesday Labs reviewed Recommend PEG placement and nutrition support started due to pts severe malnutrition. RDN following.
--- NOTE | 2019-06-09 07:00 | NUR ---
PT RESTING IN BED, VSS AND WNL. PT PLEASANTLY CONFUSED. NO SIGNS OF DISTRESS NOTED. SHIFT ASSESSMENT PERFORMED, WILL CONT TO FOLLOW POC
--- NOTE | 2019-06-09 09:00 | NUR ---
PT RESTING IN BED, VSS AND WNL. BED ALARM ON. NO SIGNS OF DISTRESS NOTED, WILL CONT TO FOLLOW POC
[2019-06-09 09:09] LABS: BASOPHILS 0.1 % (0-2); EOSINOPHILS 1.4 % (0-7); HEMATOCRIT 38.6 % (42.0-54.0); HEMOGLOBIN 11.8 g/dL (13.5-17.5); IMMATURE GRANULOCYTES 1.1 % (0-5); LYMPHOCYTES 6.9 % (15-50); MCH 27.4 pg (26.0-34.0); MCHC 30.6 g/dL (31.0-37.0); MCV 89.8 fL (80.0-100.0); MEAN PLATELET VOLUME 10.1 fL (7.4-10.4); MONOCYTES 8.6 % (2-11); NEUTROPHILS 81.9 % (40-80); PLATELET COUNT 168 10x3/uL (130-400); RDW 18.5 % (11.5-14.5); WBC 18.5 10x3/uL (4.8-10.8)
[2019-06-09 09:26] LABS: ANION GAP 22.2 mmol/L (8-16); CARBON DIOXIDE 26.2 mmol/L (21.0-32.0); CREATININE - SERUM 6.9 mg/dL (0.6-1.3); POTASSIUM - SERUM 5.4 mmol/L (3.5-5.1)
--- NOTE | 2019-06-09 11:00 | NUR ---
PT RESTING IN BED, CALL LIGHT WITHIN REACH. BED ALARM ON. VSS. PT DENIES ANY NEEDS AT THIS TIME, WILL CONT TO FOLLOW POC
--- NOTE | 2019-06-09 13:00 | NUR ---
PT RESTING IN BED, REPOSITIONED. BED ALARM ON. CALL LIGHT WITHIN REACH, WILL CONT TO FOLLOW POC
--- NOTE | 2019-06-09 15:00 | NUR ---
PT RESTING IN BED, VSS AND WNL. BED ALARM ON. CALL LIGHT WITHIN REACH. DENIES ANY NEEDS AT THIS TIME, WILL CONT TO FOLLOW POC
--- NOTE | 2019-06-09 15:00 | NUR ---
PT RESTING IN BED, VSS AND WNL. CALL LIGHT WITHIN REACH. BED ALARM ON. DENIES ANY NEEDS AT THIS TIME, WILL CONT TO FOLLOW POC
--- NOTE | 2019-06-09 18:00 | NUR ---
PT SON, PACHECO CUNHA HERE. SPOKE IN LENGTH WITH PACHECO ABOUT PLAN FOR PT. PACHECO HAS NOT MADE A DEFINATE DECISION AT THIS TIME BUT SEEMS TO BE LEANING TOWARDS HOME HOSPICE. NOTIFIED SENIOR CONTRACTS ADMINISTRATOR CAMERON.
--- NOTE | 2019-06-09 19:00 | NUR ---
ASSESSMENT COMPLETED. BREATHING ON ROOM AIR. FAMILY AT SIDE. DENIES ANY PAIN OR NEEDS. CONFUSED.
--- NOTE | 2019-06-09 21:00 | NUR ---
REPOSITIONED. FAMILY AT SIDE. PATIENT STATES IT IS 1960 AT [facility]. ATTEMPTED TO REORIENT BUT UNSUCCESSFUL
--- NOTE | 2019-06-09 23:00 | NUR ---
RE-ASSESSMENT COMPLETED. NO CHANGES SINCE LAST ASSESSMENT
[2019-06-10] VITALS (10 sets, daily range): BP systolic 109–155; BP diastolic 45–114
--- NOTE | 2019-06-10 01:00 | NUR ---
REPOSITIONED. BROTHER AT BEDSIDE
--- NOTE | 2019-06-10 03:00 | NUR ---
RE-ASSESSMENT COMPLETED. NO CHANGES SINCE LAST ASSESSMENT
--- NOTE | 2019-06-10 04:00 | NUR ---
CHANGED DRESSING TO LLE PER ORDERS
--- NOTE | 2019-06-10 05:00 | NUR ---
CHG BATH GIVEN, LINENS CHANGED.
--- NOTE | 2019-06-10 07:00 | NUR ---
BEDSIDE REPORT RECEIVED. SHIFT ASSESSMENT COMPLETED PER FLOWSHEET, SEE FLOWSHEET FOR INFORMATION. PT REPOSITIONED HIMSELF IN BED. NO ACUTE NEEDS OR DISTRESS NOTED AT THIS TIME. VSS. WILL CONT TO MONITOR.
[2019-06-10 08:28] LABS: ANION GAP 22.6 mmol/L (8-16); CALCIUM 8.4 mg/dL (8.5-10.1); CARBON DIOXIDE 23.2 mmol/L (21.0-32.0); CREATININE - SERUM 8.2 mg/dL (0.6-1.3); POTASSIUM - SERUM 5.8 mmol/L (3.5-5.1)
--- NOTE | 2019-06-10 09:00 | NUR ---
PT RESTING IN BED WITH EYES CLOSED. WILL CONT TO MONITOR.
[2019-06-10 09:09] LABS: BASOPHILS 0.1 % (0-2); EOSINOPHILS 1.2 % (0-7); HEMATOCRIT 38.3 % (42.0-54.0); HEMOGLOBIN 11.8 g/dL (13.5-17.5); IMMATURE GRANULOCYTES 0.9 % (0-5); LYMPHOCYTES 9.2 % (15-50); MCH 27.3 pg (26.0-34.0); MCHC 30.8 g/dL (31.0-37.0); MCV 88.5 fL (80.0-100.0); MEAN PLATELET VOLUME 9.6 fL (7.4-10.4); MONOCYTES 8.1 % (2-11); NEUTROPHILS 80.5 % (40-80); PLATELET COUNT 160 10x3/uL (130-400); RBC 4.33 10x6/uL (4.20-6.10); RDW 17.8 % (11.5-14.5); WBC 18.7 10x3/uL (4.8-10.8)
--- NOTE | 2019-06-10 11:00 | NUR ---
REASSESSMENT COMPLETED PER FLOWSHEET, SEE FLOWSHEET FOR INFORMATION. DIALYSIS NURSE AT BEDSIDE, NO ACUTE NEEDS OR DISTRESS NOTED AT THIS TIME. PT REFUSING VITAL SIGNS, HE KEEPS PULLING OFF ALL LEADS, O2 SENSOR, AND B/P CUFF. WILL CONT TO MONITOR.
--- NOTE | 2019-06-10 13:00 | NUR ---
DIALYSIS NURSE AND FAMILY AT BEDSIDE. WILL CONT TO MONITOR.
--- NOTE | 2019-06-10 15:00 | NUR ---
REASSESSMENT COMPLETED PER FLOWSHEET, SEE FLOWSHEET FOR INFORMATION. WAITING ON FAMILY FOR FAMILY MEETING. WILL CONT TO MONITOR.
[2019-06-10 15:24] LABS: APTT 27.8 SECONDS (22.8-39.4); INR 1.25 (0.85-1.17); PROTIME 15.6 SECONDS (11.6-15.0)
[2019-06-10 15:30] LABS: ALBUMIN 4.1 g/dL (3.4-5.0); ANION GAP 21.8 mmol/L (8-16); BILIRUBIN - TOTAL 1.71 mg/dL (0.2-1.3); CARBON DIOXIDE 23.1 mmol/L (21.0-32.0); CREATININE - SERUM 4.2 mg/dL (0.6-1.3); POTASSIUM - SERUM 3.9 mmol/L (3.5-5.1); PROTEIN - SERUM 8.2 g/dL (6.4-8.2)
--- NOTE | 2019-06-10 16:19 | NUR ---
MET WITH FAMILY AND JEWEL BEARING DRILLER, FAMILY HAS DECIDED ON COMFORT CARE STATUS. WILL CONT TO MONITOR.
--- NOTE | 2019-06-10 17:00 | NUR ---
REPORT CALLED TO RICK IN MED SURG. WILL CONT TO MONITOR.
--- NOTE | 2019-06-10 17:48 | NUR ---
NOTIFIED OF NEW ROOM, PT GOING TO ROOM 2127. REPORT CALLED TO GILMA IN MED 2. LLE DRESSING CHANGED, WOUND BED BLACK, PUSS POCKETS ON INSIDE OF ANKLE AND ON OUTSIDE OF MID CALF. WET TO DRY DRESSING WITH BETADINE USED. ABD PADS USED TO COVER 4X4 WITH BETADINE. KURLEX USED TO SECURE DRESSING. WILL CONT TO MONITOR.
--- NOTE | 2019-06-10 18:26 | NUR ---
PT ARRIVED VIA BED, NO COMPLAINTS OR CONCERNS AT THIS TIME. FAMILY TO COME OVER FOR ICU WAITING ROOM. CL IN REACH,S RX2.
--- NOTE | 2019-06-10 19:30 | NUR ---
REPORT RECIEVED AND INITIAL ROUNDS COMPLETED. PT RESTING IN BED. FAMILY X 2 AT BEDSIDE. SEE ASSESSMENT. CALL LIGHT IN REACH. CONTACT ISOLATION IN PLACE. CPOC.
--- NOTE | 2019-06-10 23:19 | NUR ---
PT'S OLDEST BROTHER AT BEDSIDE. DISCUSSED THAT ORAL MEDS WERE NOTED TO BE HELD TODAY WHILE PATIENT WAS IN ICU. BROTHER WANTS TO ATTEMPT TO GIVE MEDS. CRUSHED PILLS AND ATTEMPTED TO GIVE IN APPLESAUCE. PT GRITTED HIS TEETH TOGETHER AND WAS NOT COOPERATIVE, THEN SPIT THE ENTIRE AMOUNT OUT. WAS ABLE TO GIVE ORAL MORPHINE IN THE BUCCAL CAVITY OF HIS MOUTH AND HE DID SWALLOW THIS. DRESSINGS TO BOTH RIGHT BKA STUMP AND LEFT LOWER LEG BOTH C/D/I. SR UP X 2 AND CALL LIGHT IN REACH. BROTHER AT BEDSIDE.
[2019-06-11] VITALS: BP 140/58
[2019-06-11 04:00] VITALS: BP 134/47
--- NOTE | 2019-06-11 07:25 | NUR ---
PT AWAKE AND CONFUSED. BROTHER AT BEDSIDE. NO COMPLAINTS OR CONCERNS. REQUESTED BATH SOMETIME TODAY. CL INR EACH, SRX2.
--- NOTE | 2019-06-11 09:55 | NUR ---
I have reviewed this patient and I concur with the Shift Assessment completed by the Licensed Practical Nurse today this shift.
--- NOTE | 2019-06-11 10:46 | NUR ---
PREFORMED WOUND CARE, UPON ENTERING PTS ROOM LEFT LEG WAS HANGING OF EDGE OF BED, DRIPPING THICK, BLOODY PUSS IN A LARGE PUDDLE ON THE FLOOR. UPON TAKING OLD NOW SOILED DRESSING OFF, DISCOVERED ONE OF THE TWO PUSS POCKETS ON THE LEG HAD RUPTURED. WHILE DOING DRESSING CHANGE, THE SECOND ONE RUPTURED WELL. WILL REDRESS NEEDED. CL IN REACH, SRX2, FAMILY AT BEDSIDE.
[2019-06-11 10:56] VITALS: BP 107/65
[2019-06-11 14:31] VITALS: BP 131/49
[2019-06-11 18:37] VITALS: BP 112/47
[2019-06-11 20:00] VITALS: BP 118/54
--- NOTE | 2019-06-11 23:05 | NUR ---
ALL BEDTIME MEDS HELD. PT REFUSES TO SWALLOW MEDS. HE DENIES PAIN. TELLS NURSE AND FAMILY X 3 THAT HE IS NOT HURTNG. DRESSINGS TO RIGHT STUMP AND LEFT LOWER LEG ARE C/D/I.
[2019-06-12 04:00] VITALS: BP 116/52
[2019-06-12 05:47] LABS: BASOPHILS 0.1 % (0-2); EOSINOPHILS 0.8 % (0-7); HEMATOCRIT 32.9 % (42.0-54.0); HEMOGLOBIN 10.1 g/dL (13.5-17.5); IMMATURE GRANULOCYTES 0.5 % (0-5); LYMPHOCYTES 4.9 % (15-50); MCH 26.9 pg (26.0-34.0); MCHC 30.7 g/dL (31.0-37.0); MCV 87.5 fL (80.0-100.0); MONOCYTES 4.4 % (2-11); NEUTROPHILS 89.3 % (40-80); PLATELET COUNT 140 10x3/uL (130-400); RBC 3.76 10x6/uL (4.20-6.10); RDW 17.6 % (11.5-14.5); WBC 15.4 10x3/uL (4.8-10.8)
[2019-06-12 06:07] LABS: ANION GAP 20.3 mmol/L (8-16); CALCIUM 8.6 mg/dL (8.5-10.1); CARBON DIOXIDE 24.4 mmol/L (21.0-32.0)
[2019-06-12 06:08] LABS: CREATININE - SERUM 7.7 mg/dL (0.6-1.3); POTASSIUM - SERUM 4.7 mmol/L (3.5-5.1)
--- NOTE | 2019-06-12 07:00 | NUR ---
WALKING ROUNDS COMPLETED AND REPORT GIVEN TO DAY NURSE. PT RESTING IN BED. NO DISTRESS. CPOC.
[2019-06-12 08:43] VITALS: BP 110/36
--- NOTE | 2019-06-12 08:46 | NUR ---
PT ALERT AND CONFUSED. MORE SLEEPY THAN YESTERDAY. NO FAMILY AT BEDSIDE. CL IN REACH,S RX2.
--- NOTE | 2019-06-12 12:23 | NUR ---
PT ALERT AT TIMES, RESPONDS TO LOUD WORDS OR ROUGH PHYSICAL TOUCH. PT IS MUCH MORE LETHARGIC THATN THE PREVIOUS DAY. WARM TO TOUCH, POOR SKIN TURGOR. FAMILY STATED PT WAS MOANING AND ACTING IF HE WAS IN PAIN, REQUESTED I ADMINSTEER HIS SUBLINGUAL PAIN MEDICATION. UPON ENTERING THE ROOM, PT WAS ONLY RESPONSIVE TO PHYSICAL STIMULI, ONCE LOOKING AT ME I ASKED IF PT WANTED PAIN MEDS, HE DID, BUT IMMEDIATELY BECAME LIKE HIS PREVIOUS STATE. WOULD NOT OPEN MOUTH. ADMINISTERED IN CHEEK PER FAMILYS INSISTANCE HE HAD BEEN IN PAIN, PT WOKE FOR A SECOND I OPENED HIS MOUTH. DRESSING C/D/I ON BOTH LEGS. NO COMPLAINTS OR CONCERNS. FAMILY ASKING WHEN PT WILL BE GOING TO DIALYSIS, SPOKE WITH DIALYSIS THEY SAIDD THEY'RE UNSURE OF A TIME CURRENTLY. MULTIPLE FAMILY MEMBERS AT BEDSIDE. CL IN REACH, SRX2.
--- NOTE | 2019-06-12 18:16 | NUR ---
I have reviewed this patient and I concur with the Shift Assessment completed by the Licensed Practical Nurse today this shift.
--- NOTE | 2019-06-12 19:00 | NUR ---
EVENING ROUNDS COMPLETE. PT LAYING IN BED, WITH HOB @60 DEGREES. PT IS NOTABLY LETHARGIC. SISTER AT BEDSIDE, CONCERED OF PT HEART RATE. APICAL/RADIAL PULSE AT 70 BPM. NO SIGNS OF DISTRESS. PT DOES NOT APPEAR TO BE IN PAIN. CL IN REACH, BED IN LOWEST POSITION. REASSURED PT SISTER THAT IF THERE ARE ANY NEEDS TO LET THIS NURSE KNOW.
--- NOTE | 2019-06-12 19:55 | NUR ---
PT SISTER CALLED THIS NURSE TO ENTER ROOM. WHEN THIS NURSE ENTERED, PT WAS VOMITTING YELLOW EMESIS. THIS NURSE NOTED THE EMESIS SMELT OF FECES. THIS NURSE GAVE PT FULL BED BATH WITH ALL NEW LINENS. NO SIGNS OF DISTRESS. CL IN REACH, BED IN LOWEST POSITION.
[2019-06-12 20:34] VITALS: BP 103/82
--- NOTE | 2019-06-13 02:15 | NUR ---
THIS NURSE ATTEMPTED TO GAIN PIV ACCESS X2 ATTEMPT. UNABLE TO OBTAIN PIV ACCESS.
--- NOTE | 2019-06-13 04:04 | NUR ---
NEW PIV STARTED IN PT RIGHT FOREARM. PT TOLERATED WELL. NO SIGNS OF DISTRESS. CL IN REACH, BED IN LOWEST POSITION.
--- NOTE | 2019-06-13 06:05 | NUR ---
PAGED EAN ESCOBAR FOR CRITICAL GLUCOSE OF 39.
[2019-06-13 06:24] LABS: ANION GAP 26.3 mmol/L (8-16); CARBON DIOXIDE 22.7 mmol/L (21.0-32.0); CREATININE - SERUM 8.7 mg/dL (0.6-1.3)
--- NOTE | 2019-06-13 06:30 | NUR ---
PAGED EAN ESCOBAR AGAIN FOR CRITICAL GLUCOSE OF 39.
[2019-06-13 06:53] LABS: BASOPHILS 0.1 % (0-2); EOSINOPHILS 0 % (0-7); HEMATOCRIT 29.9 % (42.0-54.0); HEMOGLOBIN 9.2 g/dL (13.5-17.5); LYMPHOCYTES 3.3 % (15-50); MCH 26.7 pg (26.0-34.0); MCHC 30.8 g/dL (31.0-37.0); MCV 86.9 fL (80.0-100.0); MEAN PLATELET VOLUME 9.6 fL (7.4-10.4); MONOCYTES 0.9 % (2-11); NEUTROPHILS 94.7 % (40-80); PLATELET COUNT 115 10x3/uL (130-400); RBC 3.44 10x6/uL (4.20-6.10); RDW 17.9 % (11.5-14.5); WBC 18.2 10x3/uL (4.8-10.8)
--- NOTE | 2019-06-13 06:59 | NUR ---
PAGED DR. COLLINS DUE TO PT GLUCOSE OF 39.
[2019-06-13 10:05] VITALS: BP 89/35
--- NOTE | 2019-06-13 13:34 | NUR ---
SPOKE WITH ABOUT PT DECLINING CONDITION AND FAMILIES WISHES. HE STATED THAT WE WOULD NOT DIALIZE WITH THE PT'S BLOOD PRESSURE IN THE 80S SYSTOLIC. PT SPIKED TEMP OF 103.3. CALLED JONATHAN MATHEWS APN AND NOTIFIED HIM OF PATIENTS BLOOD PRESSURE AND TEMPERATURE. HE STATED THAT THE PT WAS A DNR AND HE WAS ON COMFORT CARE BECAUSE THE FAMILY DID NOT WANT TO DO HOSPICE. HE TELEPHONE ORDERED 650MG OF TYLENOL SUPPOSITORY FOR THE FEVER AND INSTRUCTED TO PROVIDE COMFORT MEASURES ONLY. WILL CTM.
--- NOTE | 2019-06-13 13:58 | NUR ---
TYLENOL SUPPOSITORY ADMINISTERED. AXILLARY TEMP OF 102.6 RECORDED. PT LETHARIGC AND ONLY RESPONDS TO DEEP STIMULI. WILL CTM.
[2019-06-13 14:16] VITALS: BP 87/29
--- NOTE | 2019-06-13 15:16 | NUR ---
ENTERED ROOM TO FIND THE PT NOT BREATHING. AUSCULTATED HEART AND LUNGS TO FIND HAD NO HEART OR LUNG SOUNDS. NOTIFIED JONATHAN MCKOY WHO STATED HE WOULD CONTACT ER MD TO PRONOUNCE. ELVER PLACED ON DOOR. IV PUMP AND 02 TURNED OFF.
--- NOTE | 2019-06-13 17:33 | NUR ---
PIV REMOVED WITH CATHETER TIP FULLY INTACT. TICK SEWERADAM NOTIFIED AT 1527. SOHAM NOTIFIED @1530 AND PT DID NOT MEET CRITERIA. BROTHER JOSE CUNHA NOTIFIED @1540 AND RECEIVED TELEPHONE CONSENT TO RELEASE THE BODY AND THAT THE CHOSE HOME WOULD BE [facility] IN [place]. [facility]. BODY TRANSFERED VIA STRETCHER AT 1730. RECORD OF GIVEN TO HOME AND FAXED TO [employer].
--- NOTE | 2019-06-13 17:36 | NUR ---
VALUABLES SENT WITH FAMILY.
--- NOTE | 2019-06-14 08:47 | MORECARE ---
CASE MANAGEMENT DISCHARGE SUMMARY PATIENT: PABLO DINERO UNIT: [id number] ADM DATE: 05/18/19 AGE: 59 : 58 SEX: M ROOM/BED: D.2358 AUTHOR: MICA,DOC PHYSICIAN: REFERRING PHYSICIAN: SABRA COLLINS MD DATE OF SERVICE: 06/14/19 Discharge Plan Patient Name: PABLO DINERO Facility: [facility]:[place] : 1960 Planned Disposition: Anticipated Discharge Date: 06/13/19 Discharge Date: 06/13/2019 Expected LOS: 26 Initial Reviewer: [email or web address] Initial Review Date: 05/18/2019 Generated: 06/14/19 9:46 am DCP- Discharge Planning Updated by [email or web address]: Josi Vickers on 06/08/19 5:[address] CM spoke with Saman patients sister. She stated that the patient's children are to be up tomorrow to make decisions regarding hospice. CM will continue to follow and assist as needed with discharge planning / needs. DCP- Discharge Planning Updated by [email or web address]: Josi Vickers on 06/07/19 4:[address] LATE ENTRY - 06/07/19 CM spoke with patient's sister Saman after nursing had stated that family was considering hospice. Saman stated that they was trying to get patients Medicaid transferred to [place]. KALA explained that in [place] you have to be a resident of the state to have there Medicaid. Saman asked if [facility] could set up transfer. KALA explained that until he has a payor contact that CM will not initiate transfer. Asman stated if they can't get him transferred then they would possibly go Hospice but they wanted him to continue dialysis. K[facility]A contacted [facility] and [facility] to see if they could do dialysis on hospice. Both companies stated that if patient is admitted to Hospice under Lymphoma diagnosis they could possibly do dialysis. KALA explained to Saman that it all depends on his admitting diagnosis as to whether they can do dialysis or not. KALA asked if she would like for CM to set up an appointment for them all to meet. Saman stated "No that she understood Hospice and it would be his children to make that decision." CM asked how many children he has she stated 3. CM will continue to follow and assist as needed with discharge planning / needs. DCP- Discharge Planning Updated by [email or web address]: Josi Vickers on 06/02/19 2:[address] Cheng here and spoke with patient and family regarding code status and patient prognosis. explained that patient is in end stage with his cancer and unable to get chemo d/t infection and overall well being. Family at this time wish to continue keep patient a full code. DCP- Discharge Planning Updated by [email or web address]: Josi Vickers on 06/01/19 5:[address] CM received a call from patient's brother Torres Dinero [phone]. Torres was concerned about patient being discharged to early. CM explained that we are just trying to get a plan initiated since he will not be able to go home alone and Medicaid not paying for rehab. He asked when this would happen CM explained that it depends on how the patient progresses. CM that we have therapy seeing patient while he is in hospital. CM answered all questions. CM will continue to follow and assist as needed with discharge planning / needs. DCP- Discharge Planning Updated by [email or web address]: Josi Vickers on 06/01/19 5:[address] Late Entry 05/31/19 CM spoke with patient's sister Saman Estes regarding discharge planning. Saman stated that they was planning on the patient going to inpatient rehab upon discharge. CM explained that patient only has Medicaid and that Medicaid doesn't cover rehab. CM spoke to sister about that patient could possibly go into watermelon harvesting supervisor care for a period of time if needed. Saman stated that she would discuss this with the rest of her siblings to make a decision. CM gave Saman CM's contact information if needed. CM will continue to follow and assist as needed with discharge planning/ needs. DCP- Discharge Planning Updated by [email or web address]: Johanna Flores on 05/21/19 2:[address] CM SPENT 40 MINUTES TALKING WITH 2 OF THE PATIENT'S SISTERS AND ONE BROTHER. THEY ARE CONCERNED ABOUT HIS DECISION MAKING ABILITY. HE DOES NOT WISH TO HAVE AN AMPUTATION. HE HAS SOME DEGREE OF [id number]. THEY HAD QUESTIONS ABOUT POA, TRANSFERING HIM TO [place], [place], MEDICAID COVERAGE, HIS TREAMENT PLAN. THEY HAVE SPOKEN TO EAN GRANADOS, DR LOPEZ, DR HERNANDEZ AND THE ORTHO MD. THEY ARE EXTREMELY CONCERNED. THEY HAVE SPOKEN W/ HIS CHILDREN WHO REPORTEDLY DO NOT UNDERSTAND HOW SICK HE IS. HIS CHILDREN LIVE OUT OF STATE. I PROVIDED TWO CONTACT NUMBERS FOR MEDICAID FOR THEIR QUESTIONS. I REVIEWED THE PLAN FOR THE NEXT 24 HRS. I SUGGESTED THEY CALL HIS HD UNIT TO SEE IF HE HAS A POA ON RECORD. HIS SISTER, SAMAN ESTES, IS THE PRIMARY WINDOW DISPLAY DESIGNER AND WHO THE PATIENT LISTED FOR EMERGENCY CONTACT. SHE WAS THE PRIMARY PERSON ASKING QUESTIONS AND TAKING NOTES. THEY WISH TO SPEAK WITH DR COLLINS. SAMAN ESTES- . DCP- Discharge Planning Updated by [email or web address]: Telma Ramsey on 05/18/19 5:[address] DC PLAN: Return home alone. ANTICIPATED DC NEEDS: denied known dc needs at time of assessment in the ER. CM met with patient to complete initial dc planning assessment. CM educated patient on the CM role and verbal consent given by patient to complete assessment. CM verified patient's address, phone number, and emergency contact phone numbers. Patient lives at home alone and reports he is independent in his care. He goes to via scat transport to and from. He reports he also goes to the wound clinic for his R ankle. He reports he is currently taking po vancomycin and IV Vanco at . At discharge patient plans to return home and feels this is a safe discharge. CM discussed availability of home health, rehab services, and medical equipment. Patient denied known discharge needs at this time. Transportation provider at discharge will be an ambulance. CM will continue to follow and will assist as needed with dc plans/needs. Telma Ramsey RN, [facility] DCPIA - Discharge Planning Initial Assessment Updated by [email or web address]: Telma Ramsey on 05/18/19 6:16 pm * Is the patient Alert and Oriented? Yes * PCP Dr. Collins * Pharmacy [facility] in [place] * Preadmission Environment Home Alone * ADLs Independent * Equipment Bedside Commode Cane Rolling Walker Wheelchair * List name and contact numbers for known caregivers / representatives who currently or will assist patient after discharge: Saman Estes - sister - [phone] * Verbal permission to speak to the caregivers and representatives has been obtained from the patient. Yes * Community resources currently utilized None * Please name any agencies selected above. Hemodialysis at [facility] transportation * Additional services required to return to the preadmission environment? No * Can the patient safely return to the preadmission environment? Yes * Has this patient been hospitalized within the prior 30 days at any hospital? Yes Last DP export: 06/08/19 5:13 p Patient Name: PABLO DINERO Page [id number] at 0847 All edits/amendments must be made on the electronic document DICTATION DATE: 06/14/19845 ALTERATION MANAGER: SUELLEN 06/14/19845 RPT#: [id number] DC DATE:06/13/19 STATUS: DIS IN [facility] [address] [place] [address] END OF REPORT
== END 2019-06-13 17:36 | DRG 853 ==
LOC: D.ER 15:55 → D.MS 16:48 → D.ICU 16:48 → D.M2 06-10 18:09
PROVIDERS: Emergency Medicine; Family Medicine; Internal Medicine; Internal Medicine Nephrology; Surgery; ADMIT Legal Medicine; ATTEND Legal Medicine
PROC: 0Y6F0ZZ Detachment at Right Knee Region, Open Approach (ICD-10-PCS; 2019-05-25)
PROC: 06HY33Z Insertion of Infusion Device into Lower Vein, Percutaneous Approach (ICD-10-PCS; principal; 2019-05-27)
DX: A41.9 Sepsis, unspecified organism (principal); N18.6 End stage renal disease; G92 Toxic encephalopathy; E43 Unspecified severe protein-calorie malnutrition; M86.171 Other acute osteomyelitis, right ankle and foot; C82.90 Follicular lymphoma, unspecified, unspecified site; I12.0 Hypertensive chronic kidney disease with stage 5 chronic kidney disease or end stage renal disease; E87.1 Hypo-osmolality and hyponatremia; G93.40 Encephalopathy, unspecified; D62 Acute posthemorrhagic anemia; E11.69 Type 2 diabetes mellitus with other specified complication; E11.22 Type 2 diabetes mellitus with diabetic chronic kidney disease; E87.5 Hyperkalemia; D63.1 Anemia in chronic kidney disease; E83.39 Other disorders of phosphorus metabolism; D72.829 Elevated white blood cell count, unspecified; E11.65 Type 2 diabetes mellitus with hyperglycemia; R40.2354 Coma scale, best motor response, localizes pain, 24 hours or more after hospital admission; R40.2134 Coma scale, eyes open, to sound, 24 hours or more after hospital admission; R40.2234 Coma scale, best verbal response, inappropriate words, 24 hours or more after hospital admission